=== PATIENT | male | born 1970 | race Caucasian/White ===

== ENCOUNTER 2017-10-11 11:38 | Inpatient (IN) | payer MEDICARE, MEDICAID ==
[2017-10-11] MEDS ORDERED: Naloxone HCl 0.4 mg/ml Vial ONE (11:50)
[2017-10-11 12:01] LABS: Oxyhemoglobin 94.7 % (94.0-97.0); Sodium 135 mmol/L (135-148)
[2017-10-11 12:02] LABS: Mode NRM ON TRACH; Modified Allen's Test POSITIVE; Vent NO
[2017-10-11 12:17] LABS: Amphetamine Not Detected (NotDetected); Methadone Not Detected (NotDetected); Methamphetamine Not Detected (NotDetected)
[2017-10-11 12:19] LABS: Bilirubin Moderate (Negative); Blood, Urine Large (Negative); Glucose, Urine (Dipstick) 250 mg/dL (Negative); Ketone, Urine Trace mg/dL (Negative); Nitrite Negative (Negative); Protein, Urine (Dipstick) 300 mg/dL (Neg-Trace)
[2017-10-11 12:22] LABS: Bacteria/HPF 4+ HPF (None Seen)
[2017-10-11 12:36] LABS: Hyaline Casts/LPF 0-3 HYALINE CAST LPF (0-3 Hyaline); Sperm/HPF 2+ HPF (None Seen); Yeast-All Forms None Seen HPF (None Seen)
[2017-10-11 12:49] LABS: #Eosinphils 0.2 thou/uL (0.0-0.7); #Lymphocytes 2.4 thou/uL (1.20-3.40); #Monocytes 1.7 thou/uL (0.11-0.59); #Neutrophils 11.8 thou/uL (1.40-6.50); %Basophils 0.2 % (0.0-1.0); %Eosinophils 1.2 % (0.0-10.0); %Lymphocytes 15.1 % (21.0-51.0); %Monocytes 10.7 % (0.0-10.0); Mean Platelet Volume 7.5 fL (7.4-10.4); Red Blood Cell (RBC) Count 3.24 mill/uL (4.70-6.10); White Blood Cell (WBC) Count 16.2 thou/uL (4.8-10.8)
[2017-10-11 12:55] LABS: Prothrombin Time 15.6 SEC (12.0-14.7)
[2017-10-11 12:56] LABS: PTT 38.1 SEC (22.9-36.1)
[2017-10-11 13:02] LABS: Lactic Acid - Sepsis 1.2 mmol/L (0.5-2.2)
[2017-10-11 13:05] LABS: Acetaminophen Less than 6.0 mcg/mL (10.0-30.0); Salicylate Less than 8.0 mg/dL (15.0-30.0)
[2017-10-11 13:06] LABS: ALT (SGPT) 10 U/L (8-55); AST (SGOT) 11 U/L (5-34); Alkaline Phosphatase 75 U/L (40-150); Anion Gap 13 mmol/L (10-20); BUN (Urea Nitrogen) 23 mg/dL (8.9-20.6); Bilirubin, Total 0.5 mg/dL (0.2-1.2); Calc. Creatinine Clearance 0 mL/min (70-130); Calcium 8.5 mg/dL (7.8-10.44); Carbon Dioxide 21 mmol/L (22-29); Chloride 102 mmol/L (98-107); Estimated GFR-MDRD 57; Globulin 3.9 g/dL (2.4-3.5); Magnesium 1.3 mg/dL (1.6-2.6); Protein, Total 7.3 g/dL (6.0-8.3)
[2017-10-11 13:08] LABS: Troponin I Less than 0.010 ng/mL (< 0.028)
[2017-10-11] MEDS ORDERED: Piperacillin/Tazobactam 4.5 GM in Sodium Chloride 0.9% 100 ML IVPB ONE (13:15)
[2017-10-11] MEDS ORDERED: ISOVUE-370 76%-LOCM 1 ML ONE (14:07)
--- NOTE | 2017-10-11 14:32 | CT ---
CT BRAIN: Date: 10/11/17 PROVIDED CLINICAL HISTORY: Altered mental status. FINDINGS: Comparison made with study dated 06/28/17. The ventricular system appears unchanged in size and morphology. Chronic microvascular ischemic solano es are redemonstrated, appearing similar to the prior study. There is no evidence for intracranial he morrhage or mass effect. The extracranial soft tissues and osseous structures demonstrate no acute fi ndings. IMPRESSION: No evidence for intracranial hemorrhage or mass effect. POS: [facility]
--- NOTE | 2017-10-11 14:46 | RAD ---
PORTABLE CHEST: Date: 10/11/17 PROVIDED CLINICAL HISTORY: Hypotension. FINDINGS: Comparison is made with the study dated 08/06/17. The lungs are hypoinflated, limiting evaluation, as does patient body habitus. There is persistent el evation of the right hemidiaphragm. Tracheostomy appliance is again noted in place. The heart remains enlarged. There is no pneumothorax evident. IMPRESSION: Limited exam. POS: [facility]
--- NOTE | 2017-10-11 15:43 | CT ---
CT ANGIO OF CHEST PERFORMED WITH IV CONTRAST ENHANCEMENT WITH 3D RECONSTRUCTIONS: Date: 10/11/17 HISTORY: Shortness of breath. Elevated D-Dimer. FINDINGS: There are atelectatic changes in the lung bases, greater in the right base. There is elevation of the right hemidiaphragm. Thoracic aorta is normal in caliber. No significant mediastinal adenopathy is seen, although there ar e some slightly prominent subcarinal nodes that are nonspecific. There is fair pulmonary artery opacification. Small peripheral emboli cannot be excluded on the basis of this exam, but no embolus is seen. Visualized liver parenchyma shows no focal findings. IMPRESSION: 1. No CT evidence for pulmonary embolus. 2. Bibasilar atelectatic changes, greater within the right base. POS: [facility]
[2017-10-11] MEDS ORDERED: Magnesium 2 GM/NS 0.9% 100 ML 2 GM in Premix Bag 1 BAG IVPB SCH (16:15)
[2017-10-11] MEDS ORDERED: Acetaminophen 325 MG TAB PO PRN (18:13)
[2017-10-11] MEDS ORDERED: Famotidine 20 MG TAB PO PRN (18:13)
[2017-10-11] MEDS: Sodium Chloride 0.9% 1,000 ML IV SCH (18:29)
--- NOTE | 2017-10-11 18:50 | HP ---
HISTORY OF PRESENT ILLNESS: Mr. Stinson is a 47-year-old black man. He is currently a detention r [facility]. He was brought to the ER earlier today because of unresponsiveness, which started early tod ay. He was evaluated and was felt to be septic. He is being admitted for management. The patient cannot give any information at this time. There is no family member. History is obtaine d from his medical record and also his detention chart. He is quadriplegic and he is known to hav e any history of obstructive nephropathy. PAST MEDICAL HISTORY: Hypertension, diabetes mellitus, dyslipidemia. PAST SURGICAL HISTORY: Remarkable for tracheostomy. He does not have any known allergy. SOCIAL HISTORY: Cannot be obtained. MEDICATIONS: At home, he was on same aspirin 81 mg daily, baclofen, Dulcolax, gabapentin, metformin, magnesium oxide. REVIEW OF SYSTEMS: Cannot be obtained in view of the patient's mentation and there is no family memb er available. PHYSICAL EXAMINATION: GENERAL: At the current time, he is responsive only to pain. VITAL SIGNS: Latest vital signs show blood pressure of 97/66, pulse rate of 77, respiratory rate of 14, temperature of 100.5. HEENT: Normocephalic and atraumatic. Both his pupils are equal, reactive. Ears and nose normal. T he oral mucosa shows some debris. NECK: Supple. He is status post tracheostomy. There is no distention of the jugular vein. No lymp hadenopathy felt. CHEST: Symmetrical with regular S1, S2. LUNGS: Show some rhonchi. ABDOMEN: Soft. He has a suprapubic catheter in place. We could not appreciate any organomegaly. LIMBS: All extremities are atrophic and he has no edema. NEUROLOGIC: He is quadriplegic as mentioned earlier. LABORATORY DATA: His CBC showed WBC of 16.2, hemoglobin of 9, hematocrit of 28, MCV of 86.5, platele t of 220. PT is 15.6, PTT 38.1. D-dimer was noticed to be elevated at 0.86. CT angiogram is normal . ABG shows a pH of 7.32, pCO2 of 45.8, pO2 of 95.7, O2 sat of 97.2, base excess of -3.2. Chemistry and electrolytes show sodium of 131, potassium of 5, chloride 102, CO2 21, BUN 23, creatinine 1.35, glucose 315, lactic acid 1.2, calcium 8.5, magnesium 1.3, total bilirubin 0.5, AST 11, ALT 10, alkali ne phosphatase 75. Urinalysis was reviewed, possible urinary tract infection; however, we have to me ntion that the patient has a suprapubic catheter in place chronically. Toxicology screen was reviewe d. Chest x-ray reviewed by us is suggestive of bilateral infiltrate. Head CT was reported to show n o evidence of intracranial hemorrhage or mass effect. CT angiogram was reported to show no evidence of pulmonary embolism. There is bibasilar atelectatic changes, greater on the right side. ASSESSMENT AND PLAN: This is a 47-year-old black man, quadriplegic, with history of hypertension, di abetes mellitus who was brought to this facility because of decreased responsiveness. WBC was elevat ed, raising the possibility of sepsis. Patient is started on broad spectrum antibiotics. His magnes ium was noticed to be low magnesium will be supplemented. The patient will be admitted to medical IC U for further evaluation and management will depend on the course of his hospitalization and his resp onse to therapy.
[2017-10-11] MEDS ORDERED: Dextrose 5% in Water 1,000 ML IV PRN (19:40)
[2017-10-11] MEDS ORDERED: Insulin Regular 300 UNITS/3 ML VIAL SC PRN (19:40)
[2017-10-11] MEDS ORDERED: HumaLOG 300 UNITS/3 ML VIAL SC PRN (19:40)
[2017-10-11] MEDS ORDERED: Dextrose 50% Abboject 50 ML SYRINGE IVP PRN (19:40)
[2017-10-11] MEDS: Docusate 100 MG CAP PO SCH (21:40)
[2017-10-11] MEDS: Piperacillin/Tazobactam 3.375 GM in Sodium Chloride 0.9% 100 ML IVPB SCH (21:40)
[2017-10-11] MEDS: Atorvastatin Calcium 40 MG TAB PO SCH (21:40)
[2017-10-12] MEDS: Vancomycin HCl 1 GM in Premix Bag 1 BAG IVPB SCH ×2 (00:55→13:55)
[2017-10-12] MEDS: Piperacillin/Tazobactam 3.375 GM in Sodium Chloride 0.9% 100 ML IVPB SCH ×4 (02:30→20:35)
[2017-10-12 04:51] LABS: Anion Gap 13 mmol/L (10-20); BUN (Urea Nitrogen) 14 mg/dL (8.9-20.6); Calc. Creatinine Clearance 169 mL/min (70-130); Calcium 9.6 mg/dL (7.8-10.44); Carbon Dioxide 21 mmol/L (22-29); Chloride 106 mmol/L (98-107); Estimated GFR-MDRD Greater than 90
[2017-10-12] MEDS: Sodium Chloride 0.9% 1,000 ML IV SCH ×2 (05:46→14:31)
[2017-10-12 05:53] LABS: #Eosinphils 0.4 thou/uL (0.0-0.7); #Lymphocytes 1.2 thou/uL (1.20-3.40); #Monocytes 1.3 thou/uL (0.11-0.59); #Neutrophils 6.8 thou/uL (1.40-6.50); %Basophils 0.3 % (0.0-1.0); %Eosinophils 4.5 % (0.0-10.0); %Lymphocytes 12.5 % (21.0-51.0); %Monocytes 13.1 % (0.0-10.0); Hematocrit 34.4 % (42.0-52.0); Mean Platelet Volume 8.4 fL (7.4-10.4); Red Blood Cell (RBC) Count 4.01 mill/uL (4.70-6.10); White Blood Cell (WBC) Count 9.7 thou/uL (4.8-10.8)
--- NOTE | 2017-10-12 07:05 | CON ---
DATE OF CONSULTATION: 10/11/2017 HISTORY OF PRESENT ILLNESS: Kwan Stinson is a 47-year-old unfortunate gentleman who was admitted with acute mental status change. He is from the [facility], who has had a previous trauma tic cervical injury associated with quadriplegia in 2011. He was hypertensive additionally, but apparently, there was no fever or chills. They also did give h im some Tylenol. Unable to get any additional information from the previous medical records. PAST MEDICAL HISTORY: Pertinent for tracheostomy, quadriplegia, hypertension, diabetes, neurogenic b ladder, , hyperlipidemia, depression. PAST SURGICAL HISTORY: C2-C12 surgical correction, PEG, laminectomy, tracheostomy. MEDICATIONS FROM HOME: Includes recent sulfa, insulin, Levemir 20, amitriptyline 100, atenolol 50 tw ice a day, tizanidine 6, gabapentin 300, multiple vitamins. REVIEW OF SYSTEMS: Otherwise unremarkable. PHYSICAL EXAMINATION: GENERAL: He is awake, responsive. VITAL SIGNS: His blood pressure was slightly low at 90/58, sats 98%, temperature 98.7, respirations 18. CHEST: Reveals anterior rhonchi. CARDIAC: Normal S1 and S2. No gallops. ABDOMEN: Soft. No masses. LABORATORY DATA: White count 16, H&H 9 and 28, platelet count 220. His creatinine is 1.35, sodium 1 35, potassium is 5, glucose 315. Her urine shows too numerous to count rbc's and wbc's. PO2 of 95, pCO2 45, pH 7.32. X-ray was normal. CT chest is normal. IMPRESSION: 1. Acute mental status change, etiology unclear, possibly sepsis. 2. Suprapubic catheter in place. 3. Status post cord traumatic injury. PLAN: 1. He was started on Zosyn, vancomycin. Continue to deescalate once cultures are back, neb treatmen ts, supportive care, hydration. 2. IV fluids. 3. We will follow while in the MICU.
[2017-10-12] MEDS: Docusate 100 MG CAP PO SCH ×2 (08:30→20:36)
[2017-10-12] MEDS: Aspirin 81 mg Enteric Coated Tablet PO SCH (08:30)
[2017-10-12] MEDS: Enoxaparin Sodium 40 MG/0.4 ML SYRINGE SC SCH (08:32)
--- NOTE | 2017-10-12 11:04 | PDOC.PN ---
- Subjective Encounter Start Date: 10/12/17 Encounter Start Time: 10:45 Subjective: Expresses no complaint. - Objective Vital Signs & Weight: Vital Signs (12 hours) Temp Pulse Resp BP Pulse Ox 10/12/17 08:00 97.7 F 80 14 97 10/12/17 07:07 80 14 10/12/17 07:05 97.7 F 79 24 H 130/83 96 10/12/17 04:00 97.8 F 73 16 101/75 97 10/12/17 01:23 97 10/12/17 00:00 75 20 115/78 98 Weight Weight 239 lb 8 oz I&O: 10/11/17 10/12/17 10/13/17 06:59 06:59 06:59 Intake Total 1686 Output Total 3200 Balance -1514 Result Diagrams: 10/12/17 04:04 10/12/17 04:04 Additional Labs: Accuchecks 10/12/17 10/11/17 05:39 20:38 POC Glucose 192 H 253 H Radiology Reviewed by me: Yes Phys Exam - Physical Examination Constitutional: NAD (Alert, responsive.) HEENT: PERRLA Neck: no JVD Respiratory: clear to auscultation bilateral Cardiovascular: RRR Gastrointestinal: soft Musculoskeletal: no edema (Paraplegic..) Dx/Plan (1) Sepsis affecting skin Code(s): A41.9 - SEPSIS, UNSPECIFIED ORGANISM Status: Acute Plan: Continue antibiotics. F/u cultures. (2) UTI (urinary tract infection) Status: Acute Plan: aas above. (3) Acute kidney failure Status: Resolved Comment: resolving. (4) Hyperkalemia Code(s): E87.5 - HYPERKALEMIA Status: Resolved Comment: resolved. (5) Sepsis Code(s): A41.9 - SEPSIS, UNSPECIFIED ORGANISM Status: Resolved Qualifiers: Sepsis type: sepsis due to unspecified organism Qualified Code(s): A41.9 - Sepsis, unspecified organism (6) DM type 2 (diabetes mellitus, type 2) Status: Chronic Qualifiers: Diabetes mellitus complication status: with unspecified complications Diabetes mellitus shelter insulin use: with shelter use Qualified Code(s) : E11.8 - Type 2 diabetes mellitus with unspecified complications; Z79.4 - senior living (current) use of insulin Plan: BS has improved. Continue sliding scale. (7) Hypertension Code(s): I10 - ESSENTIAL (PRIMARY) HYPERTENSION Status: Chronic Comment: BP satisfactory. - Plan Continue current management. -: f/u BxC, urine culture. * .
[2017-10-12 12:53] LABS: Vancomycin, Trough 11.6 ug/mL
[2017-10-12] MEDS: Vancomycin HCl 1.5 GM in Sodium Chloride 0.9% 250 ML 300 ML IVPB SCH (14:30)
[2017-10-12] MEDS: Atorvastatin Calcium 40 MG TAB PO SCH (20:36)
[2017-10-13] MEDS: Piperacillin/Tazobactam 3.375 GM in Sodium Chloride 0.9% 100 ML IVPB SCH ×2 (01:42→09:10)
[2017-10-13] MEDS: Vancomycin HCl 1.5 GM in Sodium Chloride 0.9% 250 ML 300 ML IVPB SCH (02:41)
[2017-10-13 05:43] LABS: Anion Gap 15 mmol/L (10-20); BUN (Urea Nitrogen) 7 mg/dL (8.9-20.6); Calc. Creatinine Clearance 175 mL/min (70-130); Calcium 9.8 mg/dL (7.8-10.44); Carbon Dioxide 23 mmol/L (22-29); Chloride 100 mmol/L (98-107); Estimated GFR-MDRD Greater than 90
[2017-10-13] MEDS: Sodium Chloride 0.9% 1,000 ML IV SCH ×3 (08:49→20:33)
[2017-10-13] MEDS: Docusate 100 MG CAP PO SCH ×2 (08:50→20:34)
[2017-10-13] MEDS: Aspirin 81 mg Enteric Coated Tablet PO SCH (08:50)
[2017-10-13] MEDS: Enoxaparin Sodium 40 MG/0.4 ML SYRINGE SC SCH (08:50)
[2017-10-13] MEDS ORDERED: cefTRIAXone\\ROCEPHIN 1 GM in Sodium Chloride 0.9% 100 ML IVPB SCH (09:00)
--- NOTE | 2017-10-13 09:12 | PRG ---
DATE OF SERVICE: 10/13/2017 HISTORY: This morning he is awake, alert, responsive, in no distress, no longer hypertensive. PHYSICAL EXAMINATION: VITAL SIGNS: Blood pressure 147/92, O2 sats 100%, temperature 99, pulse 114. CHEST: Chest revealed decreased breath sounds without any wheezing. CARDIAC: Normal S1-S2. . ABDOMEN: Soft. No masses. LABORATORY: Electrolytes are normal. His urine is growing E. coli sensitive to the present antibiot ics. IMPRESSION: 1. Respiratory failure, status post trach. 2. Traumatic injury. 3. Urinary tract infection sepsis. PLAN: His hypertension, resolved. I would deescalate his antibiotics, transfer him out of the ICU, in fact, he can go home in the next 24-48 hours.
[2017-10-13] MEDS: cefTRIAXone\\ROCEPHIN 1 GM, Syringe 0.4 ML in Sterile Water 9.6 ML SLOW IVP SCH (09:47)
[2017-10-13 10:38] LABS: #Eosinphils 0.3 thou/uL (0.0-0.7); #Monocytes 0.9 thou/uL (0.11-0.59); #Neutrophils 6.1 thou/uL (1.40-6.50); %Basophils 0.5 % (0.0-1.0); %Eosinophils 3.7 % (0.0-10.0); %Lymphocytes 12.4 % (21.0-51.0); %Monocytes 10.9 % (0.0-10.0); Hematocrit 32.1 % (42.0-52.0); Mean Platelet Volume 7.3 fL (7.4-10.4); Red Blood Cell (RBC) Count 3.75 mill/uL (4.70-6.10); White Blood Cell (WBC) Count 8.4 thou/uL (4.8-10.8)
[2017-10-13 11:09] LABS: Anion Gap 13 mmol/L (10-20); BUN (Urea Nitrogen) 7 mg/dL (8.9-20.6); BUN/Creatinine Ratio 8.33; Calc. Creatinine Clearance 163 mL/min (70-130); Calcium 9.7 mg/dL (7.8-10.44); Carbon Dioxide 25 mmol/L (22-29); Chloride 101 mmol/L (98-107); Estimated GFR-MDRD Greater than 90; Magnesium 1.2 mg/dL (1.6-2.6); Phosphorus 2.7 mg/dL (2.3-4.7)
--- NOTE | 2017-10-13 12:45 | PQF ---
DATE: 10-13-17 ATTN: DR. PIETER RUTH Please exercise your independent, professional judgment in responding to the clarification form. Clinical indicators are provided on the bottom of this form for your review Please check appropriate box(s): [ ] Sepsis due to: (Pna, UTI) Due to: [ ] Suprapubic Catheter [ ] Sepsis due to Pna, UTI) Not due to Suprapubic Catheter [ ] Sepsis due to [ ] Severe sepsis with acute organ dysfunction of: (Examples: respiratory failure, encephalopathy, acute kidney failure, other) [ ] Other diagnosis [ ] Unable to determine In addition, please specify: Present on Admission (POA): [ ] Yes [ ] No [ ] Unable to determine For continuity of documentation, please document condition throughout progress notes and discharge summary. Thank You. CLINICAL INDICATORS - SIGNS / SYMPTOMS / LABS ER DX: AMS, PNEUMONIA, SEPSIS, UTI H&P: HE WAS BROUGHT TO THE ER EARLIER TODAY BECAUSE OF UNRESPONSIVENESS, HE HAS A SUPRAPUBIC CATHETER IN PLACE. WBC WAS ELEVATED, RAISING THE POSSIBILITY OF SEPSIS PN DR. EMMA GALLARDO 10-12-17: ACUTE SEPSIS, ACUTE UTI TEMP : ER: 100.5 RECTAL BP: ( ER) 96/61, 90/58, 92/59 PULSE: 10-12-17: 103, 10-13-17: 117 RR: 10-12-17: 24, 22, NONREBREATHER WBC: 16.2 RISK FACTORS: ER DX: AMS, PNEUMONIA, SEPSIS, UTI H&P: HX OF QUADRIPLEGIA, TRACHEOSTOMY TREATMENTS: (10-11-17: IVF (10-13-17): ROCEPHIN, (10-11-17) ZOSYN (This form is maintained as a part of the permanent medical record) 2014 [employer] All Rights Reserved VENKAT [email or web address] Office: [phone] [facility]
[2017-10-13 13:28] VITALS: BMI 31.3
[2017-10-13] MEDS ORDERED: Magnesium Sulfate 4 GM in Sodium Chloride 0.9% 250 ML 250 ML IVPB SCH (15:15)
[2017-10-13] MEDS ORDERED: hydrALAZINE 20 MG/ML VIAL SLOW IVP PRN (18:20)
[2017-10-13] MEDS: Atorvastatin Calcium 40 MG TAB PO SCH (20:34)
[2017-10-13] MEDS: Famotidine 20 MG TAB PO SCH (20:34)
--- NOTE | 2017-10-13 21:03 | PDOC.PN ---
- Subjective Encounter Start Date: 10/13/17 Encounter Start Time: 15:30 Patient seen and examined. No new complaints. No overnight events. Feeling beter. Some cough. No N/V - Objective MAR Reviewed: Yes Vital Signs & Weight: Vital Signs (12 hours) Temp Pulse Resp BP Pulse Ox 10/13/17 20:32 107 H 18 97 10/13/17 18:54 144/99 H 10/13/17 18:29 96 10/13/17 18:00 99.2 F 96 16 98 10/13/17 16:15 99.2 F 96 16 164/110 H 98 10/13/17 15:40 103 H 20 148/100 H 95 10/13/17 13:03 108 H 16 10/13/17 12:00 99.4 F 117 H 18 153/103 H 100 Weight Admit Weight 240 lb Weight 230 lb 12.8 oz I&O: 10/12/17 10/13/17 10/14/17 06:59 06:59 06:59 Intake Total 1686 1932 600 Output Total 3200 2100 1000 Balance -7238 -168 -400 Result Diagrams: 10/13/17 10:31 10/13/17 10:31 Additional Labs: Accuchecks 10/13/17 10/13/17 10:45 04:40 POC Glucose 271 H 170 H Radiology Reviewed by me: Yes (CTA - no PE, bibasilar infiltrates) Phys Exam - Physical Examination Constitutional: NAD Respiratory: no wheezing, no rhonchi Scat bibasilar rales, Symmetrical, trach + Cardiovascular: RRR, no significant murmur, no rub no heaves Gastrointestinal: soft, non-tender, no distention, positive bowel sounds Musculoskeletal: edema present (2 + b/l LE) Neuro - Quadriparesis Psychiatric: normal affect, A&O x 3 Dx/Plan - Plan DVT proph w/lovenox, DVT proph w/SCDs IMPRESSION: 1. Sepsis with acute organ dysfunction/Toxic Metabolic Encephalopathy due to Catheter associated UTI 2. Hypomagnesemia 3. HTN 4. DM2 5. Quadriplegia 6. s/p Tracheostomy 7. BRIAN - improving PLAN: * Replace Magnessium * Change IV fluid to KVO * Resume low dose Baclofen/ Gabapentin (will confirm doses with [facility]) * Resume low dose Atenolol and Levemir * AM labs * Pulmonary following * Cont supportive care * Add Probiotics * Add Mild insulin sliding scale Review of Systems - Review of Systems Respiratory: Cough, Dry. negative: Shortness of Breath, Hemoptysis, SOB with Excertion, Pleuritic Pain, Sputum, Wheezing Cardiovascular: negative: Chest Pain, Palpitations, Orthopnea, Paroxysmal Noc. Dyspnea, Edema, Light Headedness Gastrointestinal: negative: Nausea, Vomiting, Abdominal Pain, Diarrhea, Constipation, Melena, Hematochezia, Other - Medications/Allergies Allergies/Adverse Reactions: Allergies Allergy/AdvReac Type Severity Reaction Status Date / Time No Known Drug Allergies Allergy Verified 08/07/17 04:46 Medications: Current Medications Acetaminophen (Tylenol) 650 mg PO Q6H PRN PRN Reason: Pain Last Admin: 10/13/17 11:05 Dose: 650 mg Albuterol/Ipratropium (Duoneb) 3 ml NEB [id number] [facility] Last Admin: 10/13/17 20:32 Dose: 3 ml Aspirin (Ecotrin) 81 mg PO DAILY [facility] Last Admin: 10/13/17 08:50 Dose: 81 mg Atorvastatin Calcium (Lipitor) 40 mg PO HS [facility] Last Admin: 10/13/17 20:34 Dose: 40 mg Dextrose/Water (Dextrose 50%) 25 gm IVP PRN PRN PRN Reason: HYPOGLYCEMIA PROTOCOL Docusate Sodium (Colace) 100 mg PO BID [facility] Last Admin: 10/13/17 20:34 Dose: 100 mg Enoxaparin Sodium (Lovenox) 40 mg SC 0900 [facility] Last Admin: 10/13/17 08:50 Dose: 40 mg Famotidine (Pepcid) 20 mg PO BID [facility] Last Admin: 10/13/17 20:34 Dose: 20 mg Glucagon (Glucagon) 1 mg IM PRN PRN PRN Reason: HYPOGLYCEMIA PROTOCOL Hydralazine HCl (Apresoline) 10 mg SLOW IVP Q4H PRN PRN Reason: SBP > 180 Last Admin: 10/13/17 18:29 Dose: 10 mg Sodium Chloride (Normal Saline 0.9%) 1,000 mls @ 100 mls/hr IV .Q10H [facility] Last Admin: 10/13/17 20:33 Dose: 1,000 mls Dextrose/Water (D5w) 1,000 mls @ 0 mls/hr IV INF PRN; As Directed PRN Reason: HYPOGLYCEMIA PROTOCOL Ceftriaxone Sodium 1 gm/ (Syringe 0.4 ml/ Sterile Water) 10 mls @ 120 mls/hr SLOW IVP 0900 [facility] Last Admin: 10/13/17 09:47 Dose: 10 mls Sodium Chloride (Flush - Normal Saline) 10 ml IVF Q12HR [facility] Last Admin: 10/13/17 20:34 Dose: Not Given Sodium Chloride (Flush - Normal Saline) 10 ml IVF PRN PRN PRN Reason: Saline Flush
[2017-10-14] MEDS ORDERED: Sodium Chloride 0.9% 1,000 ML IV SCH (05:00)
[2017-10-14] MEDS ORDERED: Insulin Regular 300 UNITS/3 ML VIAL SC PRN ×2 (05:01)
[2017-10-14 05:40] LABS: Anion Gap 14 mmol/L (10-20); BUN (Urea Nitrogen) 5 mg/dL (8.9-20.6); Calc. Creatinine Clearance 187 mL/min (70-130); Calcium 9.8 mg/dL (7.8-10.44); Carbon Dioxide 23 mmol/L (22-29); Chloride 103 mmol/L (98-107); Estimated GFR-MDRD Greater than 90; Magnesium 1.9 mg/dL (1.6-2.6)
[2017-10-14] MEDS: Docusate 100 MG CAP PO SCH (07:36)
[2017-10-14] MEDS: Famotidine 20 MG TAB PO SCH (07:36)
[2017-10-14] MEDS: Aspirin 81 mg Enteric Coated Tablet PO SCH (07:37)
[2017-10-14] MEDS: Enoxaparin Sodium 40 MG/0.4 ML SYRINGE SC SCH (07:37)
[2017-10-14] MEDS: cefTRIAXone\\ROCEPHIN 1 GM, Syringe 0.4 ML in Sterile Water 9.6 ML SLOW IVP SCH (07:37)
[2017-10-14] MEDS ORDERED: Insulin Detemir 100 UNITS/ML 10 UNITS in Pre-Filled Syringe 1 EACH SC SCH (09:00)
[2017-10-14] MEDS ORDERED: Polyethylene Glycol 3350 17 GM Packet PO SCH (09:00)
[2017-10-14] MEDS ORDERED: Gabapentin 100 MG CAP PO SCH (09:00)
[2017-10-14] MEDS ORDERED: Atenolol 25 MG TAB PO SCH (09:00)
[2017-10-14] MEDS ORDERED: Baclofen 10 MG TAB PO SCH (09:00)
--- NOTE | 2017-10-14 09:53 | PRG ---
DATE OF SERVICE: 10/14/2017 Kwan Stinson this morning he is better, awake, alert, responsive, no longer hypotensive. PHYSICAL EXAMINATION: VITAL SIGNS: Blood pressure 180/124, temperature 97, respiratory rate 20, O2 sat 96%. CHEST: Chest revealed decreased breath sounds, no wheezing. CARDIAC: Normal S1, S2. LABORATORY DATA: White count 8000, H&H 10 and 30, platelet count is normal. Electrolytes are normal. IMPRESSION: 1. Recurrent urinary tract infection, Escherichia coli sensitive to antibiotics. 2. No longer hypotensive. PLAN: He can be discharged home on antibiotics for 10 days. We will follow at a distance.
[2017-10-14] MEDS ORDERED: Saccharomyces boulardii 250 MG CAP PO SCH (12:00)
[2017-10-14 12:20] VITALS: BP 162/105; TEMP 98.1
--- NOTE | 2017-10-14 16:10 | DIS ---
DATE OF ADMISSION: 10/11/2017 DATE OF DISCHARGE: 10/14/2017 PRIMARY CARE PHYSICIAN: Dex Nunez M.D. DISCHARGE DISPOSITION: assisted home. PRIMARY DISCHARGE DIAGNOSES: 1. Sepsis secondary to suprapubic Ingram catheter. 2. Urinary tract infection due to indwelling suprapubic catheter. 3. Acute encephalopathy. 4. Sepsis with acute organ dysfunction. SECONDARY DISCHARGE DIAGNOSES: Tracheostomy status, suprapubic catheter status, neurogenic bladder, obesity with BMI 31, hypertension, dyslipidemia, diabetes type 2, decubitus ulcer, complete quadriple cristiano, chronic constipation, chronic anemia, anxiety and depression. PRIMARY PROCEDURE/OPERATION: None. RADIOLOGICAL INVESTIGATION: Chest x-ray was normal. CT brain unremarkable. CT angiography, no evid ence of PE, bibasilar atelectasis. SIGNIFICANT LABORATORY DATA: WBC 8.4, hemoglobin 10.3, platelets 240. INR 1.2, D-dimer 0.86, sodium 136, potassium 3.7, BUN 5, creatinine 0.73, calcium 9.8, magnesium 1.9. Urinalysis suggestive of UT I. Urine drug screen positive for tricyclics. Serum drug screen negative. Blood culture negative. Urine culture grew E. coli. DISCHARGE MEDICATIONS: New medications, Macrobid 100 mg p.o. twice daily for 10 more days, Florastor 250 mg p.o. daily for 10 days. The patient will continue following medications: Tylenol 650 mg p.o . q.6 hourly p.r.n., Tylenol #3 one tablet q.8 hourly p.r.n., amitriptyline 100 mg p.o. at bedtime, a spirin 81 mg p.o. daily, atenolol 50 mg p.o. b.i.d., baclofen 30 mg p.o. q.6 hourly p.r.n., UTI-Stat liquid p.o. daily, Colace 100 mg p.o. b.i.d., Pepcid 20 mg p.o. at bedtime, gabapentin 300 mg p.o. q. 6 hourly, Humulin R insulin as per sliding scale, Levemir 20 units subcu at bedtime, magnesium 400 mg p.o. daily, metformin 1000 mg p.o. b.i.d., multivitamin 1 capsule p.o. daily, MiraLax 17 grams p.o. daily, Senokot 1 tablet p.o. daily, Zanaflex 6 mg q.8 hourly p.r.n. CONTRAINDICATIONS: None. CODE STATUS: FULL CODE. INPATIENT HERB COUNSELOR: Dr. Acevedo was following while in hospital. TEST RESULTS PENDING ON DISCHARGE: None. ALLERGIES: No known drug allergies. DISCHARGE PLAN: Post hospital, the patient is discharged back to his [facility]. Subsequently, yashira champion will follow up with Dr. Nunez as instructed. HOSPITAL COURSE: A 47-year-old male who has complete quadriplegia. He has suprapubic catheter and t racheostomy status. He lives [facility]. He has suprapubic catheter and from [facility], he was sent to the ER for encephalopathy. Patient was found septic in the emergency room, he is a sour e of infection, was urinary tract that was related with chronic indwelling Ingram catheter. He had el evated D-dimer that is why CT angio was done which was negative for PE. CT brain was unremarkable. Chest x-ray was unremarkable. Initially, the patient was admitted in IM. Subsequently, patient wa s transferred to medical floor. As patient stayed in [facility], Dr. Acevedo saw this patient. His blood cul ture is negative and urine culture is positive for E. coli today. Based on these culture results, we decided to change to oral antibiotic therapy with Macrobid. While in hospital, he is hemodynamicall y stable. We resumed home medication upon discharge. PHYSICAL EXAMINATION: GENERAL: The patient is seen and examined at bedside today. VITAL SIGNS: Currently, temperature 98.1, pulse 97, respiratory rate 20, saturation 96%, blood press ure 165/113. Weight 230 pounds. GENERAL: The patient is currently alert, awake, and follows commands. HEAD: Normocephalic, atraumatic. EYES: Pupils round, reactive to light. ENT: Oropharynx within normal limits. Moist mucous membranes. NECK: Supple. Tracheostomy in place. LUNGS: Clear to auscultation without any rhonchi or rales. CARDIAC: S1, S2 regular, slight tachycardia, no murmur, no gallop, no rub. ABDOMEN: Suprapubic catheter in place, no peritoneal sign. No guarding, no rigidity. MUSCULOSKELETAL: Lower extremity, no edema. NEUROLOGIC: The patient has quadriplegia. Review of systems reviewed with him and negative. Today paperwork for discharge done. Discharge medication reconciliation done. Total time spent on discharge day 35 minutes.
--- NOTE | 2017-11-04 12:58 | EKG ---
Test Reason : Blood Pressure : / mmHG Vent. Rate : 088 BPM Atrial Rate : 088 BPM P-R Int : 228 ms QRS Dur : 106 ms QT Int : 354 ms P-R-T Axes : 034 -34 030 degrees QTc Int : 428 ms Sinus rhythm with 1st degree A-V block Left axis deviation Incomplete left bundle branch block Moderate voltage criteria for LVH, may be normal variant Abnormal ECG Confirmed by GILBERTO AVENDANO ([id number]), editor newspaper HARVINDER COX ([id number]) on 11/04/2017 12:58:28 PM Referred By: Confirmed By:GILBERTO AVENDANO
== END 2017-10-14 13:41 | DRG 698 ==
LOC: ERS 11:38 → IMCU/EMU 16:50 → T4-B 10-13 16:07
PROVIDERS: ADMIT Hospitalist; ATTEND Hospitalist
DX: T83.511A Infection and inflammatory reaction due to indwelling urethral catheter, initial encounter (principal); A41.51 Sepsis due to Escherichia coli [E. coli]; J96.90 Respiratory failure, unspecified, unspecified whether with hypoxia or hypercapnia; G82.50 Quadriplegia, unspecified; G92 Toxic encephalopathy; Z93.0 Tracheostomy status; N17.9 Acute kidney failure, unspecified; I95.9 Hypotension, unspecified; E87.5 Hyperkalemia; R65.20 Severe sepsis without septic shock; E11.9 Type 2 diabetes mellitus without complications; N39.0 Urinary tract infection, site not specified; I10 Essential (primary) hypertension; B96.20 Unspecified Escherichia coli [E. coli] as the cause of diseases classified elsewhere; N31.9 Neuromuscular dysfunction of bladder, unspecified; E66.9 Obesity, unspecified; Z68.31 Body mass index [BMI] 31.0-31.9, adult; E78.5 Hyperlipidemia, unspecified; L89.90 Pressure ulcer of unspecified site, unspecified stage; K59.09 Other constipation; D64.9 Anemia, unspecified; F41.9 Anxiety disorder, unspecified; F32.9 Major depressive disorder, single episode, unspecified; E83.42 Hypomagnesemia
CPT/HCPCS: 36415; 36416; 70450; 71010; 71275; 80048; 80053; 80202; 80306; 80307; 81003; 81015; 82140; 82553; 82805; 83605; 83735; 84443; 84484; 85025; 85379; 85610; 85730; 86850; 86900; 86901; 87040; 87077; 87086; 87186; 93005; 94640; 96361; 96365; 96375; A4216; J0360; J0696; J1650; J1815; J2310; J2543; J3370; J3475; J7050; J7620

== ENCOUNTER 2017-12-14 09:40 | Inpatient (IN) | payer MEDICARE, OTHER ==
--- NOTE | 2017-12-14 10:29 | RAD ---
SINGLE VIEW OF THE CHEST: COMPARISON: 10/11/17. HISTORY: Fever and altered mental status. FINDINGS: A single view of the chest shows a normal-size cardiomediastinal silhouette. The heart is accentuate d by low lung volumes. The tracheostomy is unchanged in position. There is no evidence of consolida tion, mass, or pleural effusion. IMPRESSION: No evidence of acute cardiopulmonary disease. POS: [facility]
[2017-12-14 10:30] LABS: ALT (SGPT) 13 U/L (8-55); AST (SGOT) 10 U/L (5-34); Albumin 3.7 g/dL (3.5-5.0); Alkaline Phosphatase 70 U/L (40-150); Anion Gap 14 mmol/L (10-20); BUN (Urea Nitrogen) 29 mg/dL (8.9-20.6); Bilirubin, Total 0.5 mg/dL (0.2-1.2); Calc. Creatinine Clearance 0 mL/min (70-130); Calcium 9.3 mg/dL (7.8-10.44); Carbon Dioxide 20 mmol/L (22-29); Chloride 104 mmol/L (98-107); Estimated GFR-MDRD 47; Glucose 199 mg/dL (70-105); Potassium 5.6 mmol/L (3.5-5.1); Protein, Total 7.7 g/dL (6.0-8.3); Sodium 132 mmol/L (136-145)
[2017-12-14] MEDS ORDERED: Meropenem 1 GM in Sterile Water 20 ML SLOW IVP SCH (10:30)
[2017-12-14 10:49] LABS: Bacteria/HPF 4+ HPF (None Seen)
[2017-12-14] MEDS ORDERED: Acetaminophen 325 MG Suppository ONE (10:50)
[2017-12-14] MEDS ORDERED: Acetaminophen 650 MG Suppository ONE (10:50)
[2017-12-14 10:55] LABS: Bilirubin Small (Negative); Blood, Urine Large (Negative); Clarity TURBID (Clear); Glucose, Urine (Dipstick) Negative (Negative); Leukocyte Large (Negative); Nitrite Negative (Negative); Protein, Urine (Dipstick) 100 mg/dL (Neg-Trace); Specific Gravity, Urine 1.026 (1.002-1.036)
[2017-12-14 10:57] LABS: Hemoglobin 9.2 g/dL (14.0-18.0); Mean Corpuscular HGB CONC 31.1 g/dL (32.0-36.0); Mean Corpuscular Hemoglobin 26.6 pg (27.0-31.0); Mean Corpuscular Volume 85.6 fl (80.0-94.0); Mean Platelet Volume 7.5 fL (7.4-10.4); Platelet Count 267 thou/uL (130-400); RBC Distribution Width 13.5 % (11.5-14.5); Red Blood Cell (RBC) Count 3.43 mill/uL (4.70-6.10); White Blood Cell (WBC) Count 16.5 thou/uL (4.8-10.8)
[2017-12-14 10:57] LABS: Pathc Cast-AUWi Flag 5.17 (0-2.49); Yeast-AUWi Flag 216.5 (0-25.0)
[2017-12-14 10:58] LABS: Band 10 % (5-11); Lymphocytes 10 % (21-51); MDiff Complete? YES; Monocytes 6 % (0-10); Neutrophil 74 % (42-75)
[2017-12-14] MEDS ORDERED: Ondansetron ODT 4 MG TAB PO PRN (10:59)
[2017-12-14] MEDS ORDERED: Ondansetron HCl/PF 4 MG/2 ML Vial IVP PRN (10:59)
[2017-12-14] MEDS ORDERED: Sodium Chloride 0.9% 1,000 ML IV SCH (11:00)
[2017-12-14 11:03] LABS: Hyaline Casts/LPF 0-3 HYALINE CAST LPF (0-3 Hyaline); Other Casts/LPF None Seen LPF (0-3 Hyaline)
[2017-12-14 11:04] LABS: Yeast-All Forms None Seen HPF (None Seen)
[2017-12-14] MEDS: Cefepime 2 GM, Syringe 2.5 ML in Sterile Water 10 ML SLOW IVP SCH (12:58)
[2017-12-14] MEDS: Sodium Chloride 0.9% 1,000 ML IV SCH ×2 (12:58→19:58)
[2017-12-14] MEDS ORDERED: Hydrocortisone Sod Succ/PF 100 mg/2 ml Vial ONE (12:59)
[2017-12-14] MEDS: Hydrocortisone Sod Succ/PF 100 mg/2 ml Vial IVP SCH ×2 (14:52→21:01)
--- NOTE | 2017-12-14 20:22 | HP ---
CHIEF COMPLAINT: Mental status change. HISTORY OF PRESENT ILLNESS: This is a 47-year-old quadriplegic [facility] resident who was brought in and I could not get any history from him, as patient is nonresponsive to verbal and tactile stimu li. In any case, according to report, patient was brought in this way and investigation revealed jhoana dence of sepsis secondary to urinary tract infection. Patient has been given some liters of IV fluid for resuscitation, as patient was noted to be tachycardic and hypotensive on presentation. As a res ult of this, decision has now been taken to admit this patient to the floor for further management. Patient does have suprapubic catheter. PAST MEDICAL HISTORY: Significant for hypertension, diabetes, dyslipidemia, status post tracheostomy , and functional quadriplegia. SOCIAL HISTORY: senior living resident. MEDICATIONS: Reviewed as documented on [facility]. REVIEW OF SYSTEMS: Could not be obtained from this patient. LABORATORY: Significant for white count of 16,500, hemoglobin 9.2. Sodium 132, potassium 5.6 with b icarbonate of 20, BUN of 29, and creatinine 1.58. PHYSICAL EXAMINATION: GENERAL: Patient was noted to be tachycardic and noted to be hypotensive in the ER, but seems to be improving. HEENT: Unremarkable except tracheostomy tube in place. CARDIOVASCULAR SYSTEM: First and second heart sounds were heard. RESPIRATORY SYSTEM: Revealed clear to auscultation bilaterally. DIGESTIVE SYSTEM: Revealed a benign abdomen. EXTREMITIES: Showed evidence of long-term paralysis. IMPRESSION: 1. Sepsis likely in the context of problem #2. 2. Urinary tract infection, recurrent in the context of suprapubic catheterization. 3. Acute on chronic kidney disease. 4. Hyperkalemia. 5. Metabolic acidosis. 6. Functional quadriplegia. PLAN: 1. Patient to be directly admitted to IMCU. 2. Broad-spectrum antibiotics. 3. Gentle rehydration. 4. Blood cultures and urine cultures with which we can narrow down the stress of antibiotics based o n sensitivity. 5. Further management to be dependent on the clinical course.
[2017-12-14 20:51] VITALS: BMI 30.8
[2017-12-14] MEDS ORDERED: Vancomycin HCl 1 GM in Sodium Chloride 0.9% 250 ML 250 ML IVPB SCH (21:00)
[2017-12-14] MEDS ORDERED: Cefepime 2 GM in Sodium Chloride 0.9% 100 ML IVPB SCH (21:00)
[2017-12-14] MEDS: Vancomycin HCl 1.5 GM in Sodium Chloride 0.9% 250 ML 300 ML IVPB SCH (22:38)
[2017-12-15] MEDS: Cefepime 2 GM, Syringe 2.5 ML in Sterile Water 10 ML SLOW IVP SCH ×2 (01:37→15:05)
[2017-12-15 04:22] LABS: #Lymphocytes 1.6 thou/uL (1.20-3.40); #Monocytes 1.7 thou/uL (0.11-0.59); #Neutrophils 13.5 thou/uL (1.40-6.50); %Basophils 0.1 % (0.0-1.0); %Eosinophils 0.2 % (0.0-10.0); %Lymphocytes 9.3 % (21.0-51.0); %Neutrophils 80.5 % (42.0-75.0); Hemoglobin 9.6 g/dL (14.0-18.0); Mean Corpuscular HGB CONC 31.9 g/dL (32.0-36.0); Mean Corpuscular Volume 87.8 fl (80.0-94.0); Mean Platelet Volume 7.3 fL (7.4-10.4); Platelet Count 246 thou/uL (130-400); RBC Distribution Width 13.5 % (11.5-14.5); Red Blood Cell (RBC) Count 3.44 mill/uL (4.70-6.10); White Blood Cell (WBC) Count 16.8 thou/uL (4.8-10.8)
[2017-12-15 04:47] LABS: Anion Gap 13 mmol/L (10-20); BUN (Urea Nitrogen) 19 mg/dL (8.9-20.6); Calc. Creatinine Clearance 151 mL/min (70-130); Calcium 9.4 mg/dL (7.8-10.44); Carbon Dioxide 20 mmol/L (22-29); Chloride 109 mmol/L (98-107); Estimated GFR-MDRD Greater than 90; Glucose 169 mg/dL (70-105); Potassium 4.4 mmol/L (3.5-5.1); Sodium 138 mmol/L (136-145)
[2017-12-15] MEDS: Sodium Chloride 0.9% 1,000 ML IV SCH ×3 (04:47→21:30)
[2017-12-15] MEDS: Hydrocortisone Sod Succ/PF 100 mg/2 ml Vial IVP SCH (04:48)
[2017-12-15] MEDS ORDERED: Temazepam 15 MG CAP PO PRN (07:12)
[2017-12-15] MEDS ORDERED: Eucerin (Mineral Oil/Petrolatum,White) 30 gm Jar TOP PRN (07:12)
[2017-12-15] MEDS ORDERED: HYDROcodone/Acetaminophen 5/325 mg Tablet PO PRN (07:12)
[2017-12-15] MEDS ORDERED: Mag-Al 1200 mg/1200 mg/30 ML UDCUP PO PRN (07:12)
[2017-12-15] MEDS ORDERED: Loperamide HCl 2 MG CAP PO PRN (07:12)
[2017-12-15] MEDS ORDERED: Milk Of Magnesia 30 ML UDCUP PO PRN (07:12)
[2017-12-15] MEDS ORDERED: Loratadine 10 MG TAB PO PRN (07:12)
[2017-12-15] MEDS ORDERED: Diabetic Tussin 200 MG/10 ML UDCUP PO PRN (07:12)
[2017-12-15] MEDS ORDERED: hydrALAZINE 20 MG/ML VIAL SLOW IVP PRN (07:12)
[2017-12-15] MEDS ORDERED: Sodium Chloride 0.65% Nasal 44 ML BOT EA NARE PRN (07:12)
[2017-12-15] MEDS ORDERED: Chloraseptic Spray 180 ml Bottle PO PRN (07:12)
[2017-12-15] MEDS ORDERED: Senokot 8.6 MG TAB PO PRN (07:12)
[2017-12-15] MEDS ORDERED: Artificial Tears 18 DROP/0.9 ML EA EYE PRN (07:12)
[2017-12-15] MEDS ORDERED: HumaLOG 300 UNITS/3 ML VIAL SC PRN ×2 (07:13)
[2017-12-15] MEDS ORDERED: Dextrose 5% in Water 1,000 ML IV PRN (07:13)
[2017-12-15] MEDS ORDERED: Dextrose 50% Abboject 50 ML SYRINGE SLOW IVP PRN (07:13)
[2017-12-15] MEDS ORDERED: Gabapentin 300 MG CAP PO SCH (08:00)
[2017-12-15] MEDS ORDERED: FLU VACC QS2017-18 36 mo. & older 0.5 ML SYRINGE IM ONE (09:00)
[2017-12-15] MEDS: Baclofen 10 MG TAB PO SCH ×3 (09:01→21:00)
[2017-12-15] MEDS: Polyethylene Glycol 3350 17 GM Packet PO SCH (09:01)
[2017-12-15] MEDS: Multivit, Therapeutic 1 TAB PO SCH (09:02)
[2017-12-15] MEDS: metFORMIN 500 MG TAB PO SCH ×2 (09:02→17:25)
[2017-12-15] MEDS: Saccharomyces boulardii 250 MG CAP PO SCH (09:02)
[2017-12-15] MEDS: Aspirin 81 mg Enteric Coated Tablet PO SCH (09:02)
[2017-12-15] MEDS: Famotidine 20 MG TAB PO SCH ×2 (09:02→22:06)
[2017-12-15] MEDS: Docusate 100 MG CAP PO SCH ×2 (09:03→22:06)
[2017-12-15] MEDS: Enoxaparin Sodium 30 MG/0.3 ML SYRINGE SC SCH (09:03)
[2017-12-15] MEDS: Vancomycin HCl 1.5 GM in Sodium Chloride 0.9% 250 ML 300 ML IVPB SCH ×2 (10:17→22:12)
--- NOTE | 2017-12-15 12:24 | PDOC.PN ---
- Subjective Encounter Start Date: 12/15/17 Encounter Start Time: 08:50 -: old records requested/rev Patient seen and examined. No new complaints. No overnight events - Objective MAR Reviewed: Yes Vital Signs & Weight: Vital Signs (12 hours) Temp Pulse Resp BP Pulse Ox 12/15/17 11:00 99.0 F 106 H 18 138/93 H 100 12/15/17 08:00 99.9 F H 112 H 19 99 12/15/17 07:30 99.9 F H 112 H 19 145/97 H 99 12/15/17 04:28 99.2 F 107 H 18 104/62 100 12/15/17 04:00 99 Weight Weight 227 lb 1.6 oz I&O: 12/14/17 12/15/17 12/16/17 06:59 06:59 06:59 Intake Total 1500 Output Total 1700 Balance -200 Result Diagrams: 12/15/17 03:59 12/15/17 03:59 Additional Labs: Accuchecks 12/15/17 12/15/17 11:40 06:25 POC Glucose 151 H 159 H EKG Reviewed by me: Yes (nsr) Phys Exam - Physical Examination Constitutional: NAD HEENT: PERRLA, moist MMs, sclera anicteric Neck: no JVD, supple trach+ Respiratory: no wheezing, no rales, no rhonchi Cardiovascular: RRR, no significant murmur, no rub Gastrointestinal: soft, non-tender, no distention, positive bowel sounds suprapubic catheter Musculoskeletal: no edema, pulses present quadriplegia Lymphatic: no nodes Psychiatric: normal affect Skin: no rash, normal turgor Dx/Plan (1) Acute kidney failure Status: Acute (2) Encephalopathy acute Code(s): G93.40 - ENCEPHALOPATHY, UNSPECIFIED Status: Resolved (3) Hyperkalemia Code(s): E87.5 - HYPERKALEMIA Status: Resolved (4) Sepsis with acute organ dysfunction Code(s): A41.9 - SEPSIS, UNSPECIFIED ORGANISM; R65.20 - SEVERE SEPSIS WITHOUT SEPTIC SHOCK Status: Acute (5) UTI (urinary tract infection) due to urinary indwelling Ingram catheter Code(s): T83.511A - I/I REACT D/T INDWELLING URETHRAL CATHETER, INIT; N39.0 - URINARY TRACT INFECTION, SITE NOT SPECIFIED Status: Acute Qualifiers: Indwelling urinary catheter type: cystostomy catheter (6) Anxiety and depression Code(s): F41.9 - ANXIETY DISORDER, UNSPECIFIED; F32.9 - MAJOR DEPRESSIVE DISORDER, SINGLE EPISODE, UNSPECIFIED Status: Chronic (7) Chronic anemia Code(s): D64.9 - ANEMIA, UNSPECIFIED Status: Chronic Comment: chronic, stable (8) Chronic complete quadriplegia Code(s): G82.50 - QUADRIPLEGIA, UNSPECIFIED Status: Chronic (9) Constipation Code(s): K59.00 - CONSTIPATION, UNSPECIFIED Status: Chronic (10) DM type 2 (diabetes mellitus, type 2) Status: Chronic Qualifiers: (11) Decubitus ulcer of buttock, stage 2 Code(s): L89.302 - PRESSURE ULCER OF UNSPECIFIED BUTTOCK, STAGE 2 Status: Chronic Qualifiers: (12) Dyslipidemia Code(s): E78.5 - HYPERLIPIDEMIA, UNSPECIFIED Status: Chronic (13) Hypertension Code(s): I10 - ESSENTIAL (PRIMARY) HYPERTENSION Status: Chronic Comment: BP satisfactory. (14) Neurogenic bladder Code(s): N31.9 - NEUROMUSCULAR DYSFUNCTION OF BLADDER, UNSPECIFIED Status: Chronic Comment: (15) Obesity (BMI 30.0-34.9) Code(s): E66.9 - OBESITY, UNSPECIFIED Status: Chronic (16) Status post tracheostomy Code(s): Z93.0 - TRACHEOSTOMY STATUS Status: Chronic - Plan cont current plan of care, continue antibiotics * continue cefepime and vancomycin * follow culture * Continue IVF * DC hydrocortisone * Transfer to medical floor * medication reviewed as below * symptomatic treatment * start selected home meds. Review of Systems - Review of Systems Constitutional: negative: fever, chills, sweats, weakness, malaise, other ENT: negative: Ear Pain, Ear Discharge, Nose Pain, Nose Discharge, Nose Congestion, Mouth Pain, Mouth Swelling, Throat Pain, Throat Swelling, Other Respiratory: negative: Cough, Dry, Shortness of Breath, Hemoptysis, SOB with Excertion, Pleuritic Pain, Sputum, Wheezing Cardiovascular: negative: chest pain, palpitations, orthopnea, paroxysmal nocturnal dyspnea, edema, light headedness, other Gastrointestinal: negative: Nausea, Vomiting, Abdominal Pain, Diarrhea, Constipation, Melena, Hematochezia, Other Genitourinary: negative: Dysuria, Frequency, Incontinence, Hematuria, Retention , Other Musculoskeletal: negative: Neck Pain, Shoulder Pain, Arm Pain, Back Pain, Hand Pain, Leg Pain, Foot Pain, Other Skin: negative: Rash, Lesions, Jimmy, Bruising, Other - Medications/Allergies Allergies/Adverse Reactions: Allergies Allergy/AdvReac Type Severity Reaction Status Date / Time No Known Drug Allergies Allergy Verified 08/07/17 04:46 Medications: Current Medications Acetaminophen (Tylenol) 650 mg PO Q4H PRN PRN Reason: Headache/Fever or Pain Hydrocodone Bitart/Acetaminophen ([place] 5/325) 1 tab PO Q4H PRN PRN Reason: Moderate Pain (4-6) Al Hydroxide/Mg Hydroxide (Maalox) 15 ml PO Q4H PRN PRN Reason: Heartburn or Indigestion Amitriptyline HCl (Elavil) 100 mg PO HS [facility] Artificial Tears (Tears Naturale) 0 drop EA EYE PRN PRN PRN Reason: Dry Eyes Aspirin (Ecotrin) 81 mg PO DAILY [facility] Last Admin: 12/15/17 09:02 Dose: 81 mg Baclofen (Lioresal) 30 mg PO Q6H [facility] Last Admin: 12/15/17 09:01 Dose: 30 mg Dextrose/Water (Dextrose 50%) 25 gm SLOW IVP PRN PRN PRN Reason: Hypoglycemia Docusate Sodium (Colace) 100 mg PO BID [facility] Last Admin: 12/15/17 09:03 Dose: 100 mg Enoxaparin Sodium (Lovenox) 30 mg SC 0900 [facility] Last Admin: 12/15/17 09:03 Dose: 30 mg Famotidine (Pepcid) 20 mg PO BID [facility] Last Admin: 12/15/17 09:02 Dose: 20 mg Gabapentin (Neurontin) 300 mg PO Q6HR [facility] Glucagon (Glucagon) 1 mg IM PRN PRN PRN Reason: Hypoglycemia Guaifenesin (Robitussin Sf) 200 mg PO Q4H PRN PRN Reason: Cough Hydralazine HCl (Apresoline) 10 mg SLOW IVP Q4H PRN PRN Reason: Systolic BP > 180 Sodium Chloride (Normal Saline 0.9%) 1,000 mls @ 125 mls/hr IV .Q8H [facility] Last Admin: 12/15/17 04:47 Dose: 1,000 mls Cefepime HCl 2 gm/ Syringe 2.5 (ml/ Sterile Water) 12.5 mls @ 150 mls/hr SLOW IVP 0100,1300 [facility] Last Admin: 12/15/17 01:37 Dose: 12.5 mls Vancomycin HCl 1.5 gm/ Sodium (Chloride) 300 mls @ 200 mls/hr IVPB 1000,2200 [facility] Last Admin: 12/15/17 10:17 Dose: 300 mls Dextrose/Water (D5w) 1,000 mls @ 0 mls/hr IV .Q0M PRN; As Directed PRN Reason: Hypoglycemia Insulin Human Lispro (Humalog) 0 units SC .MODERATE SLIDING SC PRN PRN Reason: Moderate Correctional Scale Insulin Human Lispro (Humalog) 0 units SC .BEDTIME SLIDING SC PRN PRN Reason: Bedtime Correctional Scale Loperamide HCl (Imodium) 2 mg PO PRN PRN PRN Reason: Diarrhea/Loose Stools Loratadine (Claritin) 10 mg PO DAILYPRN PRN PRN Reason: Sinus Symptoms Magnesium Hydroxide (Milk Of Magnesium) 30 ml PO DAILYPRN PRN PRN Reason: Constipation Metformin HCl (Glucophage) 1,000 mg PO BID-[facility] Last Admin: 12/15/17 09:02 Dose: 1,000 mg Mineral Oil/White Petrolatum (Eucerin Cream) 0 gm TOP BIDPRN PRN PRN Reason: Dry Skin Miscellaneous Medication (Pharmacy To Dose) 1 each IVPB PRN PRN PRN Reason: . Multivitamins (Theragran) 1 tab PO DAILY [facility] Last Admin: 12/15/17 09:02 Dose: 1 tab Ondansetron HCl (Zofran Odt) 4 mg PO Q6H PRN PRN Reason: Nausea/Vomiting Ondansetron HCl (Zofran) 4 mg IVP Q6H PRN PRN Reason: Nausea/Vomiting Phenol (Chloraseptic [place] 180 Ml Bot) 0 ml PO PRN PRN PRN Reason: Sore Throat Polyethylene Glycol (Miralax) 17 gm PO DAILY [facility] Last Admin: 12/15/17 09:01 Dose: 17 gm Saccharomyces Boulardii (Florastor) 250 mg PO DAILY [facility] Last Admin: 12/15/17 09:02 Dose: 250 mg Senna (Senokot) 2 tab PO HSPRN PRN PRN Reason: Constipation Sodium Chloride ([place] Nasal [place] 0.65%) 0 ml EA NARE QIDPRN PRN PRN Reason: Nasal Congestion Temazepam (Restoril) 15 mg PO HSPRN PRN PRN Reason: Insomnia
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
[2017-12-15] MEDS: Gabapentin 300 MG CAP PO SCH ×2 (14:18→17:25)
[2017-12-15] MEDS: Amitriptyline HCl 100 MG TAB PO SCH (21:00)
[2017-12-15 21:11] LABS: Vancomycin, Trough 23.6 ug/mL
[2017-12-15] MEDS: Acetaminophen 325 MG TAB PO PRN (22:05)
[2017-12-16] MEDS: Gabapentin 300 MG CAP PO SCH ×5 (00:31→23:53)
[2017-12-16] MEDS: Baclofen 10 MG TAB PO SCH ×4 (00:32→20:42)
[2017-12-16] MEDS: Amitriptyline HCl 100 MG TAB PO SCH ×2 (00:32→20:35)
[2017-12-16] MEDS: Sodium Chloride 0.9% 1,000 ML IV SCH ×4 (00:34→17:21)
[2017-12-16] MEDS: Cefepime 2 GM, Syringe 2.5 ML in Sterile Water 10 ML SLOW IVP SCH (01:58)
[2017-12-16 04:42] LABS: #Eosinphils 0.3 thou/uL (0.0-0.7); #Lymphocytes 1.5 thou/uL (1.20-3.40); #Monocytes 1.1 thou/uL (0.11-0.59); %Basophils 0.2 % (0.0-1.0); %Eosinophils 2.7 % (0.0-10.0); %Lymphocytes 13.9 % (21.0-51.0); %Monocytes 10.2 % (0.0-10.0); Hemoglobin 8.9 g/dL (14.0-18.0); Mean Corpuscular HGB CONC 30.7 g/dL (32.0-36.0); Mean Corpuscular Hemoglobin 26.8 pg (27.0-31.0); Mean Corpuscular Volume 87.6 fl (80.0-94.0); Mean Platelet Volume 7.5 fL (7.4-10.4); Platelet Count 198 thou/uL (130-400); RBC Distribution Width 13.3 % (11.5-14.5); Red Blood Cell (RBC) Count 3.33 mill/uL (4.70-6.10); White Blood Cell (WBC) Count 10.9 thou/uL (4.8-10.8)
[2017-12-16 05:05] LABS: Anion Gap 15 mmol/L (10-20); BUN (Urea Nitrogen) 13 mg/dL (8.9-20.6); Calc. Creatinine Clearance 162 mL/min (70-130); Calcium 9.2 mg/dL (7.8-10.44); Carbon Dioxide 17 mmol/L (22-29); Chloride 111 mmol/L (98-107); Estimated GFR-MDRD Greater than 90; Glucose 115 mg/dL (70-105); Potassium 4.2 mmol/L (3.5-5.1); Sodium 139 mmol/L (136-145)
[2017-12-16] MEDS: Acetaminophen 325 MG TAB PO PRN ×2 (05:53→20:35)
[2017-12-16] MEDS: metFORMIN 500 MG TAB PO SCH ×2 (08:00→17:17)
[2017-12-16] MEDS: Meropenem 1 GM in Sterile Water 20 ML SLOW IVP SCH ×2 (08:23→17:17)
[2017-12-16] MEDS: Saccharomyces boulardii 250 MG CAP PO SCH (08:24)
[2017-12-16] MEDS: Famotidine 20 MG TAB PO SCH ×2 (08:24→20:36)
[2017-12-16] MEDS: Aspirin 81 mg Enteric Coated Tablet PO SCH (08:24)
[2017-12-16] MEDS: Docusate 100 MG CAP PO SCH ×2 (08:24→20:36)
[2017-12-16] MEDS: Polyethylene Glycol 3350 17 GM Packet PO SCH (08:25)
[2017-12-16] MEDS: Multivit, Therapeutic 1 TAB PO SCH (08:25)
[2017-12-16] MEDS: Enoxaparin Sodium 30 MG/0.3 ML SYRINGE SC SCH (08:26)
--- NOTE | 2017-12-16 13:23 | CT ---
CHEST CT WITH CONTRAST ABDOMEN CT WITH CONTRAST PELVIC CT WITH CONTRAST: Date: 12/16/17 HISTORY: Quadriplegic patient. Fever of unknown origin. COMPARISON: None. TECHNIQUE: Chest, abdomen and pelvis CT are performed with IV contrast. Coronal reformatted images are submitted for interpretation. FINDINGS: CHEST CT: Note is made of a tracheostomy. There are areas of consolidation with air bronchograms involving the right lower lobe, middle lobe, and to a lesser extent left lower lobe. Multifocal pneumonia or atelec tasis should be considered. There is a small left and right-sided pleural effusion. There is no pneum othorax. Trachea and central bronchi are patent. No mediastinal mass, lymphadenopathy, or hematoma. Heart size is within normal limits. No pericardial effusion. The central pulmonary arteries are adequately opacified with contrast, without filling def ect. The thoracic aorta and abdominal aorta have a normal caliber. No periaortic fat stranding. ABDOMEN CT: Limited evaluation from beam attenuation artifact due to the patient having his arms at his side. Yolanda ssly, the liver, spleen, pancreas, and adrenal glands have appropriate enhancement. Gallbladder is unremarkable. Symmetric enhancement of the kidneys. Bilaterally, no obstructive uropathy. No gastrohepatic, retrocrural, or periportal lymphadenopathy. Symmetric attenuation of psoas muscles. No mesenteric mass, lymphadenopathy, free air, or free fluid. Limited evaluation of the gastric mucosa due to inadequate distention. Duodenum is unremarkable. Mult iple normal caliber small bowel loops. Ileocecal junction is normal. Normal caliber appendix. Contras t and fecal material throughout a nondistended, nondilated colon. No evidence of mucosal thickening. Moderate amount of fecal material in the left hemicolon. Correlate for constipation. PELVIC CT: There is a suprapubic catheter which decompresses the urinary bladder. No pelvic mass, lymphadenopath y, free air, or free fluid. No lytic or blastic lesions in the osseous structures. IMPRESSION: 1. Multifocal consolidation with air bronchograms. Correlate for multifocal pneumonia versus atelect asis. 2. No acute abnormality in the abdomen or pelvis. 3. Fecal material throughout the colon. Correlate for constipation. POS: [facility]
[2017-12-16] MEDS ORDERED: Amlodipine 10 MG TAB PO SCH (13:45)
[2017-12-16] MEDS ORDERED: Atenolol 50 MG TAB PO SCH (13:45)
[2017-12-16] MEDS ORDERED: Iopamidol 370 76% 100 ML VIAL ONE (13:55)
[2017-12-16] MEDS ORDERED: Meropenem 1 GM in Sodium Chloride 0.9% 100 ML IVPB SCH (14:00)
--- NOTE | 2017-12-16 16:54 | PDOC.PN ---
- Subjective Encounter Start Date: 12/16/17 Encounter Start Time: 16:45 Subjective: f/u for sepsis likely UTI source with polymicrobial cx. Currently on -: Meropenem. States multiple BM's. Overall feeling better. - Objective MAR Reviewed: Yes Vital Signs & Weight: Vital Signs (12 hours) Temp Pulse Resp BP BP Pulse Ox 12/16/17 16:02 98.6 F 106 H 16 130/86 12/16/17 12:19 98.9 F 102 H 16 166/127 H 98 12/16/17 08:00 100.4 F H 106 H 16 12/16/17 07:17 100.4 F H 106 H 16 144/84 H 98 Weight Weight 227 lb 1.6 oz I&O: 12/15/17 12/16/17 12/17/17 06:59 06:59 06:59 Intake Total 1500 Output Total 1700 1150 Balance -200 -1150 Result Diagrams: 12/16/17 04:15 12/16/17 04:15 Additional Labs: Accuchecks 12/16/17 12/16/17 12/15/17 12:19 04:45 20:47 POC Glucose 103 130 H 131 H Microbiology 12/14/17 10:35 Urine Suprapubic catheter Urine Culture - Final Enterobacter cloacae complex Klebsiella pneumoniae ssp pneu 12/14/17 10:35 Urine Suprapubic catheter Urine Culture - Final 12/14/17 10:35 Nasal swab Influenza Types A,B Direct EIA - Final 12/14/17 10:13 Venous blood - Left Hand Blood Culture - Preliminary Coagulase Neg Staphylococcus Staphylococcus species 12/14/17 10:04 Venous blood - Right Hand Blood Culture - Preliminary NO GROWTH AT 48 HOURS Laboratory Tests 12/14/17 12/14/17 12/15/17 10:04 10:04 03:59 WBC 16.5 H Hgb 9.2 L Creatinine 1.58 H 0.89 Vancomycin Trough 12/15/17 12/15/17 03:59 20:43 WBC 16.8 H Hgb 9.6 L Creatinine Vancomycin Trough 23.6 Radiology Reviewed by me: Yes (CT abd/pel - multiple air bronchograms, large amt stool) Phys Exam - Physical Examination alert, talkative, smiling HEENT: PERRLA, oral pharynx no lesions trach in place with T-collar Neck: no JVD, supple Respiratory: no wheezing, clear to auscultation bilateral Cardiovascular: RRR Gastrointestinal: soft, non-tender, no distention, positive bowel sounds Musculoskeletal: pulses present, edema present Psychiatric: A&O x 3 Skin: normal turgor, cap refill <2 seconds Deviation from normal: Suprapubic catheter in place Dx/Plan (1) Sepsis with acute organ dysfunction Code(s): A41.9 - SEPSIS, UNSPECIFIED ORGANISM; R65.20 - SEVERE SEPSIS WITHOUT SEPTIC SHOCK Status: Acute Comment: Likely due to urinary source with indwelling SPT, continue Meropenem 1gm IV q8h (2) Acute kidney failure Status: Acute Comment: Improved with IVF's, avoid nephrotoxic meds and contrast media (3) UTI (urinary tract infection) due to urinary indwelling Ingram catheter Code(s): T83.511A - I/I REACT D/T INDWELLING URETHRAL CATHETER, INIT; N39.0 - URINARY TRACT INFECTION, SITE NOT SPECIFIED Status: Acute Qualifiers: Indwelling urinary catheter type: cystostomy catheter Comment: Chronic indwelling suprapubic catheter (4) Chronic anemia Code(s): D64.9 - ANEMIA, UNSPECIFIED Status: Chronic Comment: chronic, stable (5) Chronic complete quadriplegia Code(s): G82.50 - QUADRIPLEGIA, UNSPECIFIED Status: Chronic Comment: Turning protocol, low-air loss mattress, skin protection (6) Constipation Code(s): K59.00 - CONSTIPATION, UNSPECIFIED Status: Chronic Qualifiers: Constipation type: slow transit constipation Qualified Code(s): K59.01 - Slow transit constipation Comment: Continue Colace, Senokot and Miralax (7) DM type 2 (diabetes mellitus, type 2) Status: Chronic Qualifiers: Comment: Continue Metformin and ISS (8) Decubitus ulcer of buttock, stage 2 Code(s): L89.302 - PRESSURE ULCER OF UNSPECIFIED BUTTOCK, STAGE 2 Status: Chronic Qualifiers: Comment: Turning protocol, Local WCT (9) Neurogenic bladder Code(s): N31.9 - NEUROMUSCULAR DYSFUNCTION OF BLADDER, UNSPECIFIED Status: Chronic Comment: (10) Obesity (BMI 30.0-34.9) Code(s): E66.9 - OBESITY, UNSPECIFIED Status: Chronic - Plan continue antibiotics, PT/OT, social studies department chair, DVT proph w/SCDs Continue Meropenem 1gm IV q8h -: Continue IVF's -: Resume home Atenolol and Norvasc for BP control -: Continue routine skin care, turning protocol and WCT -: Trach care * AM lab: BMP, CBC
[2017-12-16 18:50] LABS: Legionella Urinary Ag Negative (Negative); Strep pneumo Urine Ag NEGATIVE (NEGATIVE)
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
[2017-12-16] MEDS: tiZANidine HCl 4 MG TAB PO SCH (22:54)
[2017-12-17] MEDS: Meropenem 1 GM in Sterile Water 20 ML SLOW IVP SCH ×3 (00:30→18:16)
[2017-12-17] MEDS: Baclofen 10 MG TAB PO SCH ×5 (02:24→20:07)
[2017-12-17 05:29] LABS: Anion Gap 14 mmol/L (10-20); BUN (Urea Nitrogen) 7 mg/dL (8.9-20.6); Calc. Creatinine Clearance 187 mL/min (70-130); Calcium 9.1 mg/dL (7.8-10.44); Carbon Dioxide 21 mmol/L (22-29); Chloride 108 mmol/L (98-107); Estimated GFR-MDRD Greater than 90; Glucose 122 mg/dL (70-105); Sodium 139 mmol/L (136-145)
[2017-12-17] MEDS: Gabapentin 300 MG CAP PO SCH ×3 (05:50→18:13)
[2017-12-17] MEDS: tiZANidine HCl 4 MG TAB PO SCH ×3 (05:50→21:16)
[2017-12-17 06:08] LABS: Hemoglobin 8.8 g/dL (14.0-18.0); Mean Corpuscular HGB CONC 31.2 g/dL (32.0-36.0); Mean Corpuscular Hemoglobin 27.3 pg (27.0-31.0); Mean Corpuscular Volume 87.2 fl (80.0-94.0); Mean Platelet Volume 8.3 fL (7.4-10.4); Platelet Count 169 thou/uL (130-400); RBC Distribution Width 13.4 % (11.5-14.5); Red Blood Cell (RBC) Count 3.23 mill/uL (4.70-6.10); White Blood Cell (WBC) Count 8.4 thou/uL (4.8-10.8)
[2017-12-17 06:09] LABS: Band 6 % (5-11); Eosinophils 5 % (0-10); Lymphocytes 16 % (21-51); MDiff Complete? YES; Monocytes 13 % (0-10); Neutrophil 60 % (42-75)
[2017-12-17] MEDS: Sodium Chloride 0.9% 1,000 ML IV SCH ×3 (06:16→20:09)
[2017-12-17] MEDS ORDERED: Saccharomyces boulardii 250 MG CAP PO SCH (09:00)
[2017-12-17] MEDS ORDERED: Non-Formulary Item 1 EACH (Cran/Vitc/Mannose/Fos/Bromeln [Uti-Stat Liquid] 3,875 MG) PO SCH (09:00)
[2017-12-17] MEDS: metFORMIN 500 MG TAB PO SCH ×2 (09:12→16:40)
[2017-12-17] MEDS: Amlodipine 10 MG TAB PO SCH (09:12)
[2017-12-17] MEDS: Multivit, Therapeutic 1 TAB PO SCH (09:13)
[2017-12-17] MEDS: Aspirin 81 mg Enteric Coated Tablet PO SCH (09:13)
[2017-12-17] MEDS: Famotidine 20 MG TAB PO SCH ×2 (09:13→20:08)
[2017-12-17] MEDS: Saccharomyces boulardii 250 MG CAP PO SCH (09:13)
[2017-12-17] MEDS: Docusate 100 MG CAP PO SCH ×2 (09:14→20:08)
[2017-12-17] MEDS: Atenolol 50 MG TAB PO SCH (09:14)
[2017-12-17] MEDS: Polyethylene Glycol 3350 17 GM Packet PO SCH (09:16)
[2017-12-17] MEDS: Enoxaparin Sodium 30 MG/0.3 ML SYRINGE SC SCH (09:30)
--- NOTE | 2017-12-17 18:36 | PDOC.PN ---
- Subjective Encounter Start Date: 12/17/17 Encounter Start Time: 18:30 Subjective: f/u for sepsis likely urine with pulmonic sources. Chronic indwelling supra -: pubic catheter. CT of chest showing multifocal infiltrates vs atelectasis. -: Currently on Meropenem. - Objective MAR Reviewed: Yes Vital Signs & Weight: Vital Signs (12 hours) Temp Pulse Resp BP BP Pulse Ox 12/17/17 09:39 98.5 F 90 22 H 94 L 12/17/17 09:14 90 134/86 12/17/17 09:12 90 134/86 12/17/17 07:16 98.5 F 90 16 134/86 94 L Weight Weight 227 lb 1.6 oz I&O: 12/16/17 12/17/17 12/18/17 06:59 06:59 06:59 Intake Total 2500 2320 Output Total 1150 4200 3750 Balance -1150 -1700 -1430 Result Diagrams: 12/17/17 04:20 12/17/17 04:20 Additional Labs: Accuchecks 12/17/17 12/17/17 12/17/17 16:54 11:29 03:56 POC Glucose 178 H 142 H 126 H 12/16/17 20:06 POC Glucose 129 H Microbiology 12/16/17 18:00 Nasopharyngeal swab Respiratory Virus Panel (PCR) ([facility]) - Final 12/14/17 10:35 Urine Suprapubic catheter Urine Culture - Final Enterobacter cloacae complex Klebsiella pneumoniae ssp pneu 12/14/17 10:35 Urine Suprapubic catheter Urine Culture - Final 12/14/17 10:35 Nasal swab Influenza Types A,B Direct EIA - Final 12/14/17 10:13 Venous blood - Left Hand Blood Culture - Preliminary Coagulase Neg Staphylococcus Staphylococcus species 12/14/17 10:04 Venous blood - Right Hand Blood Culture - Preliminary NO GROWTH AT 48 HOURS Laboratory Tests 12/14/17 12/14/17 12/15/17 10:04 10:04 03:59 WBC 16.5 H Hgb 9.2 L Creatinine 1.58 H 0.89 Vancomycin Trough Ur L.pneumophila Ag Ur Strep pneumoniae Ag 12/15/17 12/15/17 12/16/17 03:59 20:43 04:15 WBC 16.8 H 10.9 H Hgb 9.6 L 8.9 L Creatinine Vancomycin Trough 23.6 Ur L.pneumophila Ag Ur Strep pneumoniae Ag 12/16/17 12/16/17 18:00 18:00 WBC Hgb Creatinine Vancomycin Trough Ur L.pneumophila Ag Negative Ur Strep pneumoniae Ag NEGATIVE Radiology Reviewed by me: Yes (CT chst/abd/pelv - multifocal opacities in chest vs atelectasis) Phys Exam - Physical Examination Constitutional: NAD alert, responsive, smiling HEENT: PERRLA, oral pharynx no lesions Trach in place with T-piece Neck: no JVD, supple Respiratory: no wheezing Cardiovascular: RRR Gastrointestinal: soft, non-tender, no distention, positive bowel sounds Musculoskeletal: pulses present Psychiatric: A&O x 3 Skin: normal turgor, cap refill <2 seconds Dx/Plan (1) Sepsis with acute organ dysfunction Code(s): A41.9 - SEPSIS, UNSPECIFIED ORGANISM; R65.20 - SEVERE SEPSIS WITHOUT SEPTIC SHOCK Status: Acute Comment: Likely due to urinary source with indwelling SPT and pulmonic contribution, continue Meropenem 1gm IV q8h another 24h then convert to po (2) Acute kidney failure Status: Acute Comment: Improved with IVF's, avoid nephrotoxic meds and contrast media (3) UTI (urinary tract infection) due to urinary indwelling Ingram catheter Code(s): T83.511A - I/I REACT D/T INDWELLING URETHRAL CATHETER, INIT; N39.0 - URINARY TRACT INFECTION, SITE NOT SPECIFIED Status: Acute Qualifiers: Indwelling urinary catheter type: cystostomy catheter Comment: Chronic indwelling suprapubic catheter (4) Chronic anemia Code(s): D64.9 - ANEMIA, UNSPECIFIED Status: Chronic Comment: chronic, stable (5) Chronic complete quadriplegia Code(s): G82.50 - QUADRIPLEGIA, UNSPECIFIED Status: Chronic Comment: Turning protocol, low-air loss mattress, skin protection (6) Constipation Code(s): K59.00 - CONSTIPATION, UNSPECIFIED Status: Chronic Qualifiers: Constipation type: slow transit constipation Qualified Code(s): K59.01 - Slow transit constipation Comment: Continue Colace, Senokot and Miralax (7) DM type 2 (diabetes mellitus, type 2) Status: Chronic Qualifiers: Comment: Continue Metformin and ISS (8) Decubitus ulcer of buttock, stage 2 Code(s): L89.302 - PRESSURE ULCER OF UNSPECIFIED BUTTOCK, STAGE 2 Status: Chronic Qualifiers: Comment: Turning protocol, Local WCT (9) Neurogenic bladder Code(s): N31.9 - NEUROMUSCULAR DYSFUNCTION OF BLADDER, UNSPECIFIED Status: Chronic Comment: (10) Obesity (BMI 30.0-34.9) Code(s): E66.9 - OBESITY, UNSPECIFIED Status: Chronic - Plan continue antibiotics, PT/OT, respiratory therapy, DVT proph w/SCDs Stable overall -: Continue Meropenem another 24h then convert to po -: General pulmonary support, trach care -: Turning protocol, skin care -: Likely back to SNF in 24-48h * .
[2017-12-17] MEDS: Amitriptyline HCl 100 MG TAB PO SCH (20:07)
[2017-12-17] MEDS: Acetaminophen 325 MG TAB PO PRN (20:08)
[2017-12-18] MEDS: Gabapentin 300 MG CAP PO SCH ×5 (00:06→23:52)
[2017-12-18] MEDS: Sodium Chloride 0.9% 1,000 ML IV SCH ×3 (01:28→15:12)
[2017-12-18] MEDS: Baclofen 10 MG TAB PO SCH ×4 (03:28→20:54)
[2017-12-18] MEDS: tiZANidine HCl 4 MG TAB PO SCH ×3 (05:20→21:59)
[2017-12-18] MEDS: metFORMIN 500 MG TAB PO SCH ×2 (08:22→17:34)
[2017-12-18] MEDS: Meropenem 1 GM in Sterile Water 20 ML SLOW IVP SCH ×4 (08:22→23:53)
[2017-12-18] MEDS: Multivit, Therapeutic 1 TAB PO SCH (08:23)
[2017-12-18] MEDS: Amlodipine 10 MG TAB PO SCH (08:23)
[2017-12-18] MEDS: Polyethylene Glycol 3350 17 GM Packet PO SCH (08:23)
[2017-12-18] MEDS: Famotidine 20 MG TAB PO SCH ×2 (08:23→20:54)
[2017-12-18] MEDS: Aspirin 81 mg Enteric Coated Tablet PO SCH (08:24)
[2017-12-18] MEDS: Docusate 100 MG CAP PO SCH ×2 (08:24→20:54)
[2017-12-18] MEDS: Enoxaparin Sodium 30 MG/0.3 ML SYRINGE SC SCH (08:24)
[2017-12-18] MEDS: Saccharomyces boulardii 250 MG CAP PO SCH (08:25)
[2017-12-18] MEDS: Atenolol 50 MG TAB PO SCH (08:28)
--- NOTE | 2017-12-18 14:59 | PDOC.PN ---
- Subjective Encounter Start Date: 12/18/17 Encounter Start Time: 14:45 Subjective: f/u for sepsis likely due to urinary and pulmonic sources. Overall clinical -: improvement. No complaints currently. BM's regular. No fever or cough. - Objective MAR Reviewed: Yes Vital Signs & Weight: Vital Signs (12 hours) Temp Pulse Resp BP BP Pulse Ox 12/18/17 12:00 98.6 F 95 20 140/94 H 93 L 12/18/17 08:28 87 150/97 H 12/18/17 08:23 87 150/97 H 12/18/17 08:00 98.4 F 87 18 94 L 12/18/17 07:51 98.4 F 87 18 150/97 H 94 L 12/18/17 04:32 98.4 F 86 18 141/91 H 96 Weight Weight 227 lb 1.6 oz I&O: 12/17/17 12/18/17 12/19/17 06:59 06:59 06:59 Intake Total 2500 4450 Output Total 4200 6100 Balance -1700 -1650 Result Diagrams: 12/17/17 04:20 12/17/17 04:20 Additional Labs: Accuchecks 12/18/17 12/17/17 12/17/17 04:13 20:43 16:54 POC Glucose 170 H 159 H 178 H Phys Exam - Physical Examination Constitutional: NAD alert, responsive HEENT: PERRLA, oral pharynx no lesions Trach in place with T-collar Neck: no nodes, no JVD, supple Respiratory: no wheezing, clear to auscultation bilateral Cardiovascular: RRR Gastrointestinal: soft, non-tender, no distention, positive bowel sounds Musculoskeletal: no edema, pulses present Psychiatric: A&O x 3 Skin: normal turgor, cap refill <2 seconds Dx/Plan (1) Sepsis with acute organ dysfunction Code(s): A41.9 - SEPSIS, UNSPECIFIED ORGANISM; R65.20 - SEVERE SEPSIS WITHOUT SEPTIC SHOCK Status: Acute Comment: Likely due to urinary source with indwelling SPT and pulmonic contribution, continue Meropenem 1gm IV q8h another 24h then convert to po (2) Acute kidney failure Status: Acute Comment: Improved with IVF's, avoid nephrotoxic meds and contrast media (3) UTI (urinary tract infection) due to urinary indwelling Ingram catheter Code(s): T83.511A - I/I REACT D/T INDWELLING URETHRAL CATHETER, INIT; N39.0 - URINARY TRACT INFECTION, SITE NOT SPECIFIED Status: Acute Qualifiers: Indwelling urinary catheter type: cystostomy catheter Comment: Chronic indwelling suprapubic catheter (4) Chronic anemia Code(s): D64.9 - ANEMIA, UNSPECIFIED Status: Chronic Comment: chronic, stable (5) Chronic complete quadriplegia Code(s): G82.50 - QUADRIPLEGIA, UNSPECIFIED Status: Chronic Comment: Turning protocol, low-air loss mattress, skin protection (6) Constipation Code(s): K59.00 - CONSTIPATION, UNSPECIFIED Status: Chronic Qualifiers: Constipation type: slow transit constipation Qualified Code(s): K59.01 - Slow transit constipation Comment: Continue Colace, Senokot and Miralax (7) DM type 2 (diabetes mellitus, type 2) Status: Chronic Qualifiers: Comment: Continue Metformin and ISS (8) Decubitus ulcer of buttock, stage 2 Code(s): L89.302 - PRESSURE ULCER OF UNSPECIFIED BUTTOCK, STAGE 2 Status: Chronic Qualifiers: Comment: Turning protocol, Local WCT (9) Neurogenic bladder Code(s): N31.9 - NEUROMUSCULAR DYSFUNCTION OF BLADDER, UNSPECIFIED Status: Chronic Comment: (10) Obesity (BMI 30.0-34.9) Code(s): E66.9 - OBESITY, UNSPECIFIED Status: Chronic - Plan continue antibiotics, PT/OT, social media content specialist, respiratory therapy, DVT proph w/ SCDs Stable overall -: Continue Meropenem 1gm IV q8h another 24h -: Plan to start Augmentin 12/19/17 -: Decrease IVF 75ml/h -: Anticipate d/c in am * .
[2017-12-18] MEDS: Amitriptyline HCl 100 MG TAB PO SCH (20:55)
[2017-12-19] MEDS: Sodium Chloride 0.9% 1,000 ML IV SCH (04:10)
[2017-12-19] MEDS: Baclofen 10 MG TAB PO SCH ×3 (04:10→14:39)
[2017-12-19] MEDS: Gabapentin 300 MG CAP PO SCH ×2 (05:37→12:17)
[2017-12-19] MEDS: tiZANidine HCl 4 MG TAB PO SCH ×2 (05:37→14:39)
[2017-12-19] MEDS: Polyethylene Glycol 3350 17 GM Packet PO SCH (08:20)
[2017-12-19] MEDS: Multivit, Therapeutic 1 TAB PO SCH (08:22)
[2017-12-19] MEDS: metFORMIN 500 MG TAB PO SCH (08:22)
[2017-12-19] MEDS: Aspirin 81 mg Enteric Coated Tablet PO SCH (08:22)
[2017-12-19] MEDS: Famotidine 20 MG TAB PO SCH (08:22)
[2017-12-19] MEDS: Amlodipine 10 MG TAB PO SCH (08:22)
[2017-12-19] MEDS: Saccharomyces boulardii 250 MG CAP PO SCH (08:22)
[2017-12-19] MEDS: Docusate 100 MG CAP PO SCH (08:22)
[2017-12-19] MEDS: Enoxaparin Sodium 30 MG/0.3 ML SYRINGE SC SCH (08:22)
[2017-12-19] MEDS: Atenolol 50 MG TAB PO SCH (08:27)
[2017-12-19] MEDS: Meropenem 1 GM in Sterile Water 20 ML SLOW IVP SCH (08:27)
[2017-12-19 12:24] VITALS: BP 150/96; TEMP 98
--- NOTE | 2017-12-19 17:29 | DIS ---
DATE OF ADMISSION: 12/14/2017 DATE OF DISCHARGE: 12/19/2017 DISCHARGE DIAGNOSES: 1. Sepsis with acute organ dysfunction, secondarily to urinary tract infection and suspected pneumon ia, resolved. 2. Urinary tract infection with chronic indwelling suprapubic catheter with Enterobacter cloacae com plex and Klebsiella pneumonia species. 3. Question of pneumonia, likely gram positive cocci. 4. Chronic hypoxemic respiratory failure with tracheostomy and oxygen supplementation at 5 liters pe r minute by trach collar. 5. Acute kidney injury, resolved. 6. Quadriplegia, chronic. 7. Constipation, resolved. 8. Diabetes mellitus, type 2, insulin requiring. 9. Stage 2 decubitus ulcer. 10. Neurogenic bladder. CONSULTATIONS: Dr. Florence with Infectious Disease Service. PERTINENT LABORATORY AND X-RAY FINDINGS: Potassium ranged between 4.0-5.6, creatinine ranged between 0.72-1.58 with estimated GFR ranging between 47 to greater than 90. Lactic acid level 1.4. LFTs wi thin normal limits. CBC showed a white blood cell count ranging between 8.4-16.8, hemoglobin ranged between 8.8-9.6. Urinary Legionella pneumophila antigen negative on 12/16/2017. Urinary Streptococc us pneumonia antigen negative on 12/16/2017. Blood cultures dated 12/14/2017 showed 1 out of 2 posit latisha for coagulase negative Staphylococcus. Influenza A and B antigen dated 12/14/2017 negative. Uri ne culture dated 12/14/2017 showed greater than 100,000 colonies of Enterobacter and Klebsiella speci es. Respiratory virus panel by PCR dated 12/16/2017 negative. Portable chest x-ray dated 12/14/2017 showed no acute cardiopulmonary process. CT of the chest, abdomen, and pelvis dated 12/16/2017 show ed multifocal consolidation with air bronchograms. No acute process identified in the abdomen or pel vis. Prominent fecal material throughout the colon. HOSPITAL COURSE: The patient was admitted initially presenting with questionable altered mentation a nd evidence for sepsis syndrome. The patient was placed on broad spectrum IV antibiotic therapy with suspected urinary tract source given a chronic indwelling suprapubic catheter due to neurogenic blad olman in the context of quadriplegia. The patient was continued on broad spectrum IV antibiotic therap y and evaluated by the Infectious Disease Service. The patient underwent evaluation including chest, abdomen and pelvic CT showing no acute process in the abdominal cavity or pelvis. The patient rut nued on meropenem throughout the remainder of the hospital course with urine culture showing Enteroba cter and Klebsiella species. The patient clinically stabilized with normalization of white blood aubree l count prior to discharge. The patient tolerating regular oral intake and maintaining O2 saturation s in the upper 90% range on 5 liters per minute by trach collar. Overall, the patient clinically sta ble and ready for discharge on 12/19/2017. DISCHARGE MEDICATIONS: 1. Augmentin 500 mg 1 tab p.o. b.i.d. x7 days. 2. Tylenol No. 3, 300/30 mg 1 tab p.o. q.8 hours p.r.n. 3. Amitriptyline 100 mg p.o. at bedtime. 4. Norvasc 10 mg 1 tab p.o. daily. 5. Enteric coated aspirin 81 mg 1 tab p.o. daily. 6. Atenolol 50 mg 1 tab p.o. daily. 7. Lipitor 40 mg p.o. at bedtime. 8. Baclofen 30 mg p.o. q.6 hours p.r.n. 9. Cranberry extract daily. 10. Docusate sodium 100 mg p.o. b.i.d. 11. Docusate enema 5 mL per rectum at bedtime. 12. Pepcid 20 mg p.o. at bedtime p.r.n. 13. Gabapentin 300 mg p.o. q.6 hours. 14. Insulin sliding scale with Humulin R. 15. Levemir 20 units subcutaneously at bedtime. 16. Magnesium oxide 400 mg p.o. daily. 17. Metformin 1000 mg p.o. b.i.d. 18. Multivitamin 1 tab p.o. daily. 19. MiraLax 17 grams p.o. daily. 20. Potassium chloride 20 mEq p.o. daily. 21. Florastor 250 mg p.o. daily. 22. Senokot 2 tabs p.o. at bedtime p.r.n. 23. Tizanidine 6 mg p.o. q.8 hours. FOLLOWUP: The patient will follow up with Dr. Dex Nunez at [facility]. CONDITION ON DISCHARGE: Fair. ACTIVITY: Ad obdulia. DIET: ADA. CODE STATUS: FULL. DISPOSITION: Discharged to [facility] on 12/19/2017. Total time preparing and coordinating discharge is 32 minutes.
--- NOTE | 2018-01-03 16:10 | EKG ---
Test Reason : Blood Pressure : / mmHG Vent. Rate : 104 BPM Atrial Rate : 104 BPM P-R Int : 212 ms QRS Dur : 104 ms QT Int : 326 ms P-R-T Axes : 028 -37 040 degrees QTc Int : 428 ms Sinus tachycardia with 1st degree A-V block Possible Left atrial enlargement Left axis deviation Left ventricular hypertrophy Abnormal ECG Confirmed by OLEGARIO WILLIAM M.D. ([id number]), offline editor HARVINDER COX ([id number] on 01/03/2018 4:09:33 PM Referred By: Confirmed By:OLEGARIO WILLIAM M.D.
== END 2017-12-19 14:53 | DRG 698 ==
LOC: ERS 09:40 → ERHOLD 11:19 → IMCU/EMU 19:22 → T4-A 12-15 12:08
PROVIDERS: ADMIT Internal Medicine Nephrology; ATTEND Internal Medicine Nephrology
DX: T83.510A Infection and inflammatory reaction due to cystostomy catheter, initial encounter (principal); A41.89 Other specified sepsis; G93.41 Metabolic encephalopathy; J18.9 Pneumonia, unspecified organism; J96.11 Chronic respiratory failure with hypoxia; L89.302 Pressure ulcer of unspecified buttock, stage 2; N17.9 Acute kidney failure, unspecified; R53.2 Functional quadriplegia; R65.20 Severe sepsis without septic shock; E87.2 Acidosis; N39.0 Urinary tract infection, site not specified; Z93.0 Tracheostomy status; Y83.3 Surgical operation with formation of external stoma as the cause of abnormal reaction of the patient, or of later complication, without mention of misadventure at the time of the procedure; E87.5 Hyperkalemia; E78.5 Hyperlipidemia, unspecified; N31.9 Neuromuscular dysfunction of bladder, unspecified; Z79.4 Long term (current) use of insulin; Z86.711 Personal history of pulmonary embolism; E11.9 Type 2 diabetes mellitus without complications; Z79.84 Long term (current) use of oral hypoglycemic drugs; D64.9 Anemia, unspecified; K59.01 Slow transit constipation; E66.9 Obesity, unspecified; Z68.30 Body mass index [BMI] 30.0-30.9, adult; F41.9 Anxiety disorder, unspecified; F32.9 Major depressive disorder, single episode, unspecified
CPT/HCPCS: 36415; 36416; 71045; 71260; 74177; 80048; 80053; 80202; 81003; 81015; 83605; 85007; 85025; 85027; 87040; 87077; 87086; 87149; 87186; 87633; 87804; 87899; 93005; 94640; 94760; 96361; 96365; 96366; 96374; 96375; A4216; A4353; G8996-GN-CH; G8997-GN-CH; J0692; J1650; J1720; J2185; J2405; J3370; J7050

== ENCOUNTER 2020-06-17 19:44 | Emergency (ER) | payer MEDICARE, OTHER | END 2020-06-17 22:11 | LOC: ERS 19:44 | DX: J95.03 Malfunction of tracheostomy stoma (principal); I10 Essential (primary) hypertension; E11.40 Type 2 diabetes mellitus with diabetic neuropathy, unspecified; K21.9 Gastro-esophageal reflux disease without esophagitis; D64.9 Anemia, unspecified; E78.5 Hyperlipidemia, unspecified; F32.9 Major depressive disorder, single episode, unspecified; Z79.4 Long term (current) use of insulin; Z79.82 Long term (current) use of aspirin; Z79.899 Other long term (current) drug therapy | CPT/HCPCS: 31502 ==

== ENCOUNTER 2020-08-21 00:10 | Inpatient (IN) | payer MEDICARE, MEDICAID, OTHER ==
[2020-08-21] MEDS ORDERED: Ondansetron ODT 4 MG TAB PO PRN (01:35)
[2020-08-21] MEDS ORDERED: Acetaminophen 325 MG TAB PO PRN (01:35)
[2020-08-21] MEDS ORDERED: Ondansetron PF 4 MG/2 ML Vial IVP PRN (01:35)
[2020-08-21] MEDS ORDERED: HumaLOG 300 UNITS/3 ML VIAL SC PRN (01:35)
[2020-08-21] MEDS ORDERED: Acetaminophen 650 MG Suppository PR PRN (01:35)
[2020-08-21] MEDS ORDERED: Furosemide 20 MG/2 ML VIAL SLOW IVP SCH (02:15)
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
[2020-08-21] MEDS ORDERED: Vancomycin HCl 750 MG in Sodium Chloride 0.9% 250 ML 250 ML IVPB SCH (02:45)
[2020-08-21] MEDS: Cefepime 2 GM in Sodium Chloride 0.9% 100 ML IVPB SCH ×2 (02:51→14:53)
[2020-08-21] MEDS: HumaLOG 300 UNITS/3 ML VIAL SC PRN ×3 (05:47→18:09)
[2020-08-21] MEDS ORDERED: Diabetic Tussin 200 MG/10 ML UDCUP PO PRN (06:54)
[2020-08-21] MEDS ORDERED: Baclofen 10 MG TAB PO SCH ×2 (07:00→10:15)
--- NOTE | 2020-08-21 07:39 | RAD ---
Chest one view HISTORY: Hypoxia. Respiratory failure. Follow-up. COMPARISON: 08/20/2020. FINDINGS: Cardiac silhouette is magnified by projection and slightly shifted leftward on the current study. Opacity throughout the right pleural space and right lung has increased. Patchy infiltrate throughout the left lung has also progressed. Lines and tubes are unchanged in position. No evidence of pneumothorax. IMPRESSION : Continued worsening of right pleural fluid and bilateral infiltrates, right greater than left.
[2020-08-21 07:53] LABS: #Lymphocytes 0.8 thou/uL (1.20-3.40); #Monocytes 0.5 thou/uL (0.11-0.59); #Neutrophils 6.9 thou/uL (1.40-6.50); %Basophils 0.2 % (0.0-1.0); %Lymphocytes 9.5 % (21.0-51.0); %Monocytes 5.7 % (0.0-10.0); %Neutrophils 84.5 % (42.0-75.0); Hemoglobin 9.4 g/dL (14.0-18.0); Mean Corpuscular HGB CONC 31.3 g/dL (32.0-36.0); Mean Corpuscular Hemoglobin 25.5 pg (27.0-31.0); Mean Corpuscular Volume 81.5 fL (78.0-98.0); Mean Platelet Volume 7.7 fL (7.4-10.4); Platelet Count 285 thou/uL (130-400); RBC Distribution Width 14.9 % (11.5-14.5); Red Blood Cell (RBC) Count 3.68 mill/uL (4.70-6.10); White Blood Cell (WBC) Count 8.1 thou/uL (4.8-10.8)
[2020-08-21] MEDS ORDERED: Non-Formulary Item 1 EACH (Metformin Hcl [Metformin Hcl] 1,000 MG Tablet) PO SCH (08:00)
[2020-08-21 08:09] LABS: ALT (SGPT) 18 U/L (8-55); AST (SGOT) 23 U/L (5-34); Albumin 3.5 g/dL (3.5-5.0); Alkaline Phosphatase 115 U/L (40-110); Anion Gap 16 mmol/L (10-20); BUN (Urea Nitrogen) 34 mg/dL (8.9-20.6); Bilirubin, Total 0.3 mg/dL (0.2-1.2); Calc. Creatinine Clearance 73 mL/min (70-130); Calcium 8.8 mg/dL (7.8-10.44); Carbon Dioxide 21 mmol/L (22-29); Chloride 103 mmol/L (98-107); Estimated GFR-MDRD 38; Globulin 4.8 g/dL (2.4-3.5); Glucose 163 mg/dL (70-105); Potassium 4.4 mmol/L (3.5-5.1); Protein, Total 8.3 g/dL (6.0-8.3); Sodium 136 mmol/L (136-145)
[2020-08-21] MEDS: Scopolamine 1.5 mg/72 hour Patch TD SCH (08:11)
[2020-08-21] MEDS: Atenolol 50 MG TAB PO SCH (08:12)
[2020-08-21] MEDS: Amlodipine 10 MG TAB PO SCH (08:12)
[2020-08-21] MEDS: Gabapentin 300 MG CAP PO SCH ×4 (08:12→20:16)
[2020-08-21] MEDS: tiZANidine HCl 4 MG TAB PO SCH ×4 (08:12→20:13)
[2020-08-21] MEDS: Magnesium Oxide 400 MG TAB PO SCH ×2 (08:12→16:39)
[2020-08-21] MEDS: Lisinopril 5 MG TAB PO SCH (08:13)
[2020-08-21] MEDS: Polyethylene Glycol 3350 17 GM Packet PO SCH (08:13)
[2020-08-21] MEDS: Saccharomyces boulardii 250 MG CAP PO SCH (08:13)
[2020-08-21] MEDS: Multivit, Therapeutic 1 TAB PO SCH (08:13)
[2020-08-21] MEDS: Aspirin 81 mg Enteric Coated Tablet PO SCH (08:13)
[2020-08-21] MEDS: Heparin 5,000 UNITS/ML VIAL SC SCH ×2 (08:13→20:13)
[2020-08-21] MEDS ORDERED: Midazolam HCl 2 mg/2 ml Vial ONE (08:22)
[2020-08-21] MEDS ORDERED: Midazolam HCl 2 mg/2 ml Vial SLOW IVP SCH (08:30)
[2020-08-21] MEDS ORDERED: Acetaminophen 500 MG TAB PO SCH (08:45)
[2020-08-21] MEDS ORDERED: [UNRECOGNIZED DRUG - OTHER] PO SCH (09:00)
[2020-08-21] MEDS ORDERED: FOS PO SCH (09:00)
[2020-08-21] MEDS ORDERED: VITC PO SCH (09:00)
[2020-08-21] MEDS ORDERED: CRAN PO SCH (09:00)
[2020-08-21] MEDS ORDERED: MANNOSE PO SCH (09:00)
[2020-08-21] MEDS ORDERED: BROMELN PO SCH (09:00)
[2020-08-21] MEDS: Famotidine/PF 20 mg/2ml Vial SLOW IVP SCH ×2 (09:37→20:13)
[2020-08-21] MEDS: methylPREDNISolone Sod Succ 40 MG VIAL IVP SCH ×2 (11:22→17:52)
--- NOTE | 2020-08-21 12:41 | PRG ---
DATE OF SERVICE: 08/21/2020 I have read the note of Dr. Shanae Rodriges and agreed with her assessment and plan. Mr. Stinson was admitted with sepsis and respiratory failure and is currently on broad-spectrum antibiotic coverage. He is also followed by the intensive care service. Job ID: [id number]
[2020-08-21] MEDS: Baclofen 10 MG TAB PO SCH ×2 (13:02→17:52)
--- NOTE | 2020-08-21 14:08 | CON ---
DATE OF CONSULTATION: 08/21/2020 TIME SPENT: 35 minutes of critical care time. REASON FOR CONSULTATION: Acute on chronic respiratory failure. HISTORY OF PRESENT ILLNESS: The patient is a 50-year-old quadriplegic, who presented to the emergency room from long term with low O2 saturations and lethargy. He had been in the hospital recently with MRSA bacteremia. He was receiving IV vancomycin via PICC line in the long term. On presentation, he had an atelectatic right lung, which is worsened. Nursing staff has suctioned out some mucus. I did a bronchoscopy this morning, which showed edematous, but fairly clear airways on the right. PAST MEDICAL HISTORY: 1. Quadriplegia. 2. Chronic hypoxic respiratory failure with indwelling trach. 3. Diabetes mellitus, type 2. 4. Neurogenic bladder. 5. Acid reflux. 6. Hypertension. 7. Constipation. PAST SURGICAL HISTORY: 1. Laminectomy. 2. PEG tube placement with subsequent removal. 3. Tracheostomy. 4. Suprapubic catheter. FAMILY MEDICAL HISTORY: Unremarkable. SOCIAL HISTORY: Lives in a long term. Does not smoke. Does not drink alcohol. He does eat orally. REVIEW OF SYSTEMS: Otherwise, negative. PHYSICAL EXAMINATION: VITAL SIGNS: Temperature 99.9, pulse 115, blood pressure 148/91, and O2 saturation in the high 80s. The patient is wearing high-flow nasal cannula. GENERAL: Appears to be in mild respiratory distress. HEENT: Unremarkable. NECK: Indwelling trach clean. LUNGS: Poor air movement, right. Clear breath sounds, left. CARDIAC: S1 and S2. Tachycardic. ABDOMEN: Soft and nontender. EXTREMITIES: No clubbing or cyanosis. He has edema in the legs. LABORATORY DATA: Sodium 136, potassium 4.4, chloride 103, CO2 of 21, BUN 34, creatinine 1.8, and glucose 163. White blood cell count 8.1, hematocrit 30, and platelet count 285. Recent cultures reviewed has grown out numerous gram-negatives and MRSA in the last month. He has had a COVID negative test on 07/31/2020. ASSESSMENT: 1. Right lung pneumonia/mucus plugging/atelectasis. 2. Acute on chronic respiratory failure - now in need of mechanical ventilation. 3. Acute on chronic renal insufficiency. 4. Quadriplegia. 5. Neurogenic bladder. PLAN: 1. Broad-spectrum IV antibiotics. 2. Mechanical ventilation. 3. Add GI prophylaxis. Job ID: [id number]
--- NOTE | 2020-08-21 14:30 | OP ---
DATE OF PROCEDURE: 08/21/2020 PROCEDURE PERFORMED: Bronchoscopy. PREOPERATIVE DIAGNOSIS: Right lung atelectasis. POSTOPERATIVE DIAGNOSIS: Extensive mucosal edema, right lung. ANESTHESIA: Versed 4 mg IV x1. DESCRIPTION OF PROCEDURE: A 2.2 Ambu bronchoscope was placed through the patient's tracheostomy while he was on high-flow oxygen through an adapter. Significant findings included extensive mucosal edema in the right mainstem bronchus, right upper lobe, and right lower lobe. The left mainstem bronchus, left upper lobe, and left lower lobe were clear. Surprisingly, there were few of any mucoid secretions. The patient tolerated the procedure well. Job ID: [id number]
[2020-08-21] MEDS ORDERED: Sodium Chloride 0.9% 1,000 ML IV SCH (14:45)
--- NOTE | 2020-08-21 14:47 | PDOC.BPN ---
- Brief Progress Note Encounter Date: 08/21/20 Encounter Time: 14:30 Patient's BP soft this PM. Fe Urea calculated based on serum and urine studies. Fe Urea = 26.7. This indicates prerenal etiology. Pt appeared dry on exam this AM so will hydrate with fluid bolus and start maintenance IVF.
[2020-08-21] MEDS: Sodium Chloride 0.9% 1,000 ML IV SCH ×2 (14:53→20:16)
[2020-08-21] MEDS: Atorvastatin Calcium 40 MG TAB PO SCH (20:12)
[2020-08-21] MEDS: Amitriptyline HCl 25 MG TAB PO SCH (20:12)
[2020-08-21] MEDS: Insulin Glargine 30 UNITS in Pre-Filled Syringe 1 EACH SC SCH (20:13)
[2020-08-21] MEDS ORDERED: Non-Formulary Item 1 EACH (Levemir Flexpen [Levemir Flexpen] 100 UNITS/ML Pen) SC SCH (21:00)
[2020-08-22] MEDS: Baclofen 10 MG TAB PO SCH ×5 (00:11→23:59)
[2020-08-22] MEDS: methylPREDNISolone Sod Succ 40 MG VIAL IVP SCH ×4 (00:11→17:11)
[2020-08-22] MEDS: Cefepime 2 GM in Sodium Chloride 0.9% 100 ML IVPB SCH ×2 (02:38→13:08)
[2020-08-22] MEDS ORDERED: Vancomycin HCl 1.75 GM in Sodium Chloride 0.9% 500 ML IVPB SCH (03:00)
[2020-08-22 03:23] LABS: #Lymphocytes 0.6 thou/uL (1.20-3.40); #Monocytes 0.3 thou/uL (0.11-0.59); #Neutrophils 5.2 thou/uL (1.40-6.50); %Eosinophils 0.1 % (0.0-10.0); Hemoglobin 7.4 g/dL (14.0-18.0); Mean Corpuscular HGB CONC 31.2 g/dL (32.0-36.0); Mean Corpuscular Hemoglobin 25.7 pg (27.0-31.0); Mean Corpuscular Volume 82.3 fL (78.0-98.0); Mean Platelet Volume 7.7 fL (7.4-10.4); Platelet Count 211 thou/uL (130-400); RBC Distribution Width 14.9 % (11.5-14.5); White Blood Cell (WBC) Count 6.1 thou/uL (4.8-10.8)
[2020-08-22] MEDS: Sodium Chloride 0.9% 1,000 ML IV SCH ×3 (03:25→11:40)
[2020-08-22 03:41] LABS: Anion Gap 17 mmol/L (10-20); BUN (Urea Nitrogen) 42 mg/dL (8.9-20.6); Calc. Creatinine Clearance 65 mL/min (70-130); Calcium 8.4 mg/dL (7.8-10.44); Carbon Dioxide 21 mmol/L (22-29); Chloride 104 mmol/L (98-107); Estimated GFR-MDRD 34; Glucose 239 mg/dL (70-105); Potassium 4.6 mmol/L (3.5-5.1); Sodium 137 mmol/L (136-145)
[2020-08-22] MEDS: HumaLOG 300 UNITS/3 ML VIAL SC PRN ×3 (04:07→16:37)
[2020-08-22] MEDS ORDERED: Morphine 2 MG/ML VIAL SLOW IVP PRN (04:30)
[2020-08-22] MEDS ORDERED: DISCONTINUE PREVIOUS NARCOTIC PAIN MEDICATIONS AND BENZODIAZEPINES FS SCH (04:30)
[2020-08-22] MEDS ORDERED: fentaNYL Citrate/PF 2,000 MCG in Sodium Chloride 0.9% 60 ML IV SCH (04:30)
[2020-08-22] MEDS ORDERED: Propofol BOLUS 1,000 MG/100 ML VIAL IV PRN (04:30)
[2020-08-22] MEDS ORDERED: Fentanyl BOLUS 250 ML IVPB PRN (04:30)
[2020-08-22] MEDS: Lorazepam 2 MG/ML VIAL SLOW IVP PRN ×2 (05:00→15:25)
--- NOTE | 2020-08-22 06:58 | PDOC.FM ---
- Subjective Subjective: Patient with bear hugger on due to low temp this AM. He nods yes when asked if he has history of CHF. Follows commands. - Objective MAR Reviewed: Yes Vital Signs & Weight: Vital Signs (12 hours) Temp Pulse Resp BP Pulse Ox 08/22/20 05:26 16 08/22/20 04:00 96.8 F L 21 H 08/22/20 02:25 65 08/22/20 02:00 26 H 08/22/20 00:00 97.1 F L 16 08/21/20 22:23 67 108/72 08/21/20 22:00 16 08/21/20 20:00 16 99 08/21/20 19:00 96.8 F L Weight Weight 108.6 kg Most Recent Monitor Data Heart Rate from ECG 61 NIBP 118/81 NIBP BP-Mean 93 Respiration from ECG 17 SpO2 97 I&O: 08/20/20 08/21/20 08/22/20 06:59 06:59 06:59 Intake Total 722 3904 Output Total 1482 1535 Balance -760 2369 Result Diagrams: 08/22/20 03:00 08/22/20 03:00 Phys Exam - Physical Examination somewhat diaphoretic unchanged unchanged Gastrointestinal: no distention Dx/Plan - Plan Plan: 50 yo M admitted from [facility] due to worsening breathing, acute respiratory failure and now found to have Covid: Neuro: GCS 11T Encephalopathy, resolved Neurogenic bladder: has suprapubic cath Resp: Sepsis 2/2 PNA Covid positive Acute on chronic hypoxic respiratory failure -pending blood and urine cultures -Abx: vancomycin and cefepime' -Has trach -on steroids CV: Hx of diastolic CHF Hx of HTN - balance fluid overload vs BRIAN Renal/: BRIAN vs BRIAN on CKD -BUN/Cr 37/2.23 - balancing fluid resuscitation vs diastolic CHF Heme/ID: Covid PNA as above Hx of MRSA bacteremia -has PICC line and on vanc -vanc trough 19.2, therapeutic, will continue -echo repeated on 08/20, no sign of endocarditis Endo: DM2 -SSI, glucose checks q4h Code: Full IVF: NS at 100 Lines/Tubes: PICC line, trach, suprapubic catheter, NG tube Diet: NPO, pellet preparation operator consult Dispo: Admit inpatient CCU, LOS > 48hrs
[2020-08-22] MEDS ORDERED: Sodium Chloride 0.9% 1,000 ML IV SCH (06:59)
--- NOTE | 2020-08-22 07:49 | RAD ---
Chest one view HISTORY: Pneumonia. Follow-up. COMPARISON: 08/21/2020. FINDINGS: Cardiac silhouette is magnified by projection and remains shifted leftward slightly. Tracheostomy appliance and left upper extremity PICC are in place. Dense opacity throughout the right hemithorax is slightly less pronounced than on the prior study wit h some clearing of the right lateral costophrenic angle. Patchy infiltrate throughout the left lung is slightly less pronounced. No evidence of pneumothorax. IMPRESSION : Slight interval improvement. Persistent bilateral multifocal pneumonia.
[2020-08-22 07:53] LABS: Actual Bicarbonate (HCO3a) 20.6 mEq/L (22-28); Base Excess (BEa) -4.7 mEq/L (-2.0 to +3.0); CO2 Tension 39.2 mmHg (35.0-45.0); Calcium, Ionized (arterial) 1.15 mmol/L (1.12-1.30); Carboxyhemoglobin (COHb) 0.2 gm% (0.0-3.0); O2 Tension (PaO2), arterial 74.3 mmHg (80.0-100.0); Potassium - ABG Lab 4.45 mmol/L (3.70-5.30); pH, Arterial 7.34 (7.35-7.45)
[2020-08-22 08:15] LABS: Puncture Site LR
[2020-08-22] MEDS: Multivit, Therapeutic 1 TAB PO SCH (08:26)
[2020-08-22] MEDS: Polyethylene Glycol 3350 17 GM Packet PO SCH (08:26)
[2020-08-22] MEDS: Aspirin 81 mg Enteric Coated Tablet PO SCH (08:27)
[2020-08-22] MEDS: tiZANidine HCl 4 MG TAB PO SCH ×4 (08:27→21:48)
[2020-08-22] MEDS: Amlodipine 10 MG TAB PO SCH (08:27)
[2020-08-22] MEDS: Lisinopril 5 MG TAB PO SCH (08:28)
[2020-08-22] MEDS: Saccharomyces boulardii 250 MG CAP PO SCH (08:28)
[2020-08-22] MEDS: Gabapentin 300 MG CAP PO SCH ×4 (08:28→21:48)
[2020-08-22] MEDS: Famotidine/PF 20 mg/2ml Vial SLOW IVP SCH ×2 (08:29→21:48)
[2020-08-22] MEDS: Heparin 5,000 UNITS/ML VIAL SC SCH (08:29)
[2020-08-22] MEDS: Magnesium Oxide 400 MG TAB PO SCH ×2 (08:33→16:14)
[2020-08-22] MEDS: Atenolol 50 MG TAB PO SCH (09:56)
--- NOTE | 2020-08-22 10:02 | RAD ---
Portable frontal chest radiograph: 08/22/2020 COMPARISON: 08/20/2020 and 08/22/2020 HISTORY: Evaluate chest following nasogastric tube placement FINDINGS: Detailed assessment of the chest is limited secondary to body habitus and portable techniqu e. A left upper extremity PICC is noted, distal tip overlying the region of the SVC. Stable tracheostomy tube present. There is obscuration of the right hemidiaphragm with increased density in the right costophrenic angle, evidence of right basilar consolidation/collapse and probable associated right pleural effusion. There is a nasogastric tube which extends into the upper abdomen, not optimally assessed secondary to technical limitations. There is hazy airspace opacity in the mid left lung zone in the medial left lung base, stable. Dense consolidation is seen throughout the majority of the right lung, stable as w ell. Impression: Lines and tubes as detailed above. Nonspecific bilateral airspace disease, right greater than left. Probable right pleural effusion.
--- NOTE | 2020-08-22 14:36 | PDOC.BPN ---
- Brief Progress Note Encounter Date: 08/22/20 Encounter Time: 14:30 Followed up [facility] where patient was prior to coming to hospital. Prior to 08/20, the patient did not have any symptoms such as fever or respiratory symptoms. Apparently he had a Covid swab on 08/18 at the [facility] which was negative per RN. First day of symptoms as best that we can assess occurred on 08/20 when patient became altered, febrile, and hypoxic necessitating his hospitalization. In order to better assess patient's respiratory decline, I have ordered a procalcitonin. We will trend inflammatory markers. If low/negative, will consider discontinuing the cefepime and vancomycin as he has completed his course for MRSA bacteremia from last hospitalization. We also will discuss with the patient starting remdesivir and/or convalescent plasma.
--- NOTE | 2020-08-22 16:13 | PRG ---
DATE OF SERVICE: 08/22/2020 ADDENDUM: This is an addendum to the daily note of Dr. Shanae Rodriges. I have examined the patient and discussed the case with Dr. Rodriges. I agree with her assessment and plan. Job ID: [id number]
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
[2020-08-22] MEDS: Propofol 1,000 MG/100 ML VIAL IV PRN (18:35)
[2020-08-22] MEDS: Amitriptyline HCl 25 MG TAB PO SCH (21:47)
[2020-08-22] MEDS: Atorvastatin Calcium 40 MG TAB PO SCH (21:47)
[2020-08-22] MEDS: Enoxaparin Sodium 100 MG/ML SYRINGE SC SCH (21:47)
[2020-08-22] MEDS: Insulin Glargine 30 UNITS in Pre-Filled Syringe 1 EACH SC SCH (21:48)
[2020-08-23] MEDS: Cefepime 2 GM in Sodium Chloride 0.9% 100 ML IVPB SCH ×2 (01:52→13:29)
[2020-08-23 02:15] LABS: #Lymphocytes 0.3 thou/uL (1.20-3.40); #Monocytes 0.4 thou/uL (0.11-0.59); #Neutrophils 6.4 thou/uL (1.40-6.50); %Eosinophils 0.1 % (0.0-10.0); %Lymphocytes 4.2 % (21.0-51.0); %Monocytes 6.1 % (0.0-10.0); %Neutrophils 89.7 % (42.0-75.0); Hemoglobin 7.8 g/dL (14.0-18.0); Mean Corpuscular HGB CONC 31.1 g/dL (32.0-36.0); Mean Corpuscular Hemoglobin 25.2 pg (27.0-31.0); Mean Corpuscular Volume 80.9 fL (78.0-98.0); Mean Platelet Volume 7.9 fL (7.4-10.4); Platelet Count 228 thou/uL (130-400); RBC Distribution Width 14.7 % (11.5-14.5); White Blood Cell (WBC) Count 7.1 thou/uL (4.8-10.8)
[2020-08-23 02:24] LABS: INR-International Normal Ratio 1.3; Prothrombin Time 16.4 sec (12.0-14.7)
[2020-08-23 02:25] LABS: PTT 70.7 sec (22.9-36.1)
[2020-08-23 02:26] LABS: D-Dimer Test 2.9 *mcg/mL (0.27-0.43)
[2020-08-23 03:00] LABS: Anion Gap 17 mmol/L (10-20); BUN (Urea Nitrogen) 38 mg/dL (8.9-20.6); Calc. Creatinine Clearance 80 mL/min (70-130); Calcium 8.7 mg/dL (7.8-10.44); Carbon Dioxide 21 mmol/L (22-29); Chloride 105 mmol/L (98-107); Estimated GFR-MDRD 42; Glucose 235 mg/dL (70-105); Potassium 3.9 mmol/L (3.5-5.1); Sodium 139 mmol/L (136-145)
[2020-08-23] MEDS: Baclofen 10 MG TAB PO SCH ×4 (05:39→23:47)
[2020-08-23] MEDS: methylPREDNISolone Sod Succ 40 MG VIAL IVP SCH ×5 (05:39→23:47)
[2020-08-23] MEDS: HumaLOG 300 UNITS/3 ML VIAL SC PRN ×3 (06:03→15:50)
[2020-08-23] MEDS: Propofol 1,000 MG/100 ML VIAL IV PRN ×3 (06:03→19:11)
[2020-08-23] MEDS: Polyethylene Glycol 3350 17 GM Packet PO SCH (07:49)
[2020-08-23] MEDS: Lisinopril 5 MG TAB PO SCH (07:49)
[2020-08-23 07:50] LABS: Actual Bicarbonate (HCO3a) 18.1 mEq/L (22-28); Base Excess (BEa) -6.9 mEq/L (-2.0 to +3.0); CO2 Tension 34.2 mmHg (35.0-45.0); Calcium, Ionized (arterial) 1.19 mmol/L (1.12-1.30); Carboxyhemoglobin (COHb) 0.4 gm% (0.0-3.0); Hemoglobin (Hb) 8.9 g/dL (14.0-18.0); O2 Tension (PaO2), arterial 71.2 mmHg (80.0-100.0); Potassium - ABG Lab 3.66 mmol/L (3.70-5.30); pH, Arterial 7.34 (7.35-7.45)
[2020-08-23] MEDS: Lorazepam 2 MG/ML VIAL SLOW IVP PRN ×2 (07:50→19:11)
[2020-08-23] MEDS: Gabapentin 300 MG CAP PO SCH ×4 (07:50→20:24)
[2020-08-23] MEDS: Atenolol 50 MG TAB PO SCH (07:50)
[2020-08-23] MEDS: tiZANidine HCl 4 MG TAB PO SCH ×4 (07:51→20:24)
[2020-08-23] MEDS: Magnesium Oxide 400 MG TAB PO SCH ×2 (07:51→17:26)
[2020-08-23] MEDS: Multivit, Therapeutic 1 TAB PO SCH (07:51)
[2020-08-23] MEDS: Saccharomyces boulardii 250 MG CAP PO SCH (07:51)
[2020-08-23] MEDS: Aspirin 81 mg Enteric Coated Tablet PO SCH (07:51)
[2020-08-23] MEDS: Amlodipine 10 MG TAB PO SCH (07:51)
[2020-08-23 07:52] LABS: Puncture Site LR
[2020-08-23] MEDS: Famotidine/PF 20 mg/2ml Vial SLOW IVP SCH ×2 (07:52→20:24)
--- NOTE | 2020-08-23 09:00 | RAD ---
PORTABLE CHEST: HISTORY: Followup pneumonia. CCU followup. FINDINGS: Tracheostomy device, central line, and NG tube are unchanged. Diffuse alveolar infiltrate throughout the right lung again noted with elevated right hemidiaphragm a nd evidence of right effusion. Hazy infiltrate in the left perihilar region again noted. IMPRESSION: Not significantly changed from yesterday. POS: AGW
--- NOTE | 2020-08-23 10:05 | PDOC.FM ---
- Subjective Subjective: Patient on propofol 20 this morning and resting. Apparently he was restless and agitated when RT was suctioning out increased, thick mucous secretions. Patient does not wake up for me today due to his sedation. - Objective MAR Reviewed: Yes Vital Signs & Weight: Vital Signs (12 hours) Temp Pulse Resp BP Pulse Ox 08/23/20 08:00 100.2 F H 30 H 08/23/20 07:51 104 H 144/95 H 08/23/20 07:50 105 H 144/95 H 08/23/20 07:49 105 H 144/95 H 08/23/20 07:21 110 H 146/91 H 92 L 08/23/20 07:20 111 H 28 H 92 L 08/23/20 06:00 18 08/23/20 04:00 98.7 F 18 08/23/20 02:30 89 141/90 H 08/23/20 02:00 97.4 F L Weight Admit Weight 108.409 kg Weight 109.1 kg Most Recent Monitor Data Heart Rate from ECG 99 NIBP 137/91 NIBP BP-Mean 106 Respiration from ECG 24 SpO2 89 I&O: 08/22/20 08/23/20 08/24/20 06:59 06:59 06:59 Intake Total 3904 3127.1 60 Output Total 1535 4250 1000 Balance 2369 -1122.9 -940 Result Diagrams: 08/23/20 02:10 08/23/20 02:10 Phys Exam - Physical Examination Constitutional: NAD HEENT: moist MMs Respiratory: no wheezing (mild coarse sounds bilaterally, improved at lung bas es) Cardiovascular: RRR, no significant murmur Gastrointestinal: soft, no distention Musculoskeletal: no edema, pulses present (wearing boots to prevent pressure ulcers) Dx/Plan - Plan Plan: 50 yo M admitted from intermediate due to worsening breathing, acute respiratory failure and now found to have Covid: Neuro: GCS: unable to assess due to sedation. Encephalopathy, resolved Neurogenic bladder: has suprapubic cath - wean propofol as able. Resp: Sepsis 2/2 PNA Covid pneumonia with possible superimposed bacterial pneumonia Acute on chronic hypoxic respiratory failure - Pulm consulted, appreciate recs. - primary sputum culture growing rare mold species and normal respiratory jackie - With change in secretions and elevated procalcitonin, repeat sputum culture. - blood cultures: no growth to date. - Procalcitonin elevated, continue Abx of vancomycin and cefepime. - Has trach - on steroids Right Pleural effusion - continue to monitor on daily CXR. If not improving, we may consider thoracen tesis/further mgmt per Pulmonology. CV: Hx of diastolic CHF Hx of HTN - balance fluid overload vs BRIAN Renal/: BRIAN vs BRIAN on CKD Presumptive pseudomonas UTI Neurogenic bladder - Urine culture showing presumptive pseudomonas >100K cfu. Continue cefepime until sensitivities result. - We may need to consider urology consult and replacement of suprapubic catheter. - balancing fluid resuscitation vs diastolic CHF - continue half-maintenance rate of fluids Heme/ID: Covid PNA as above Hx of MRSA bacteremia -has PICC line and on vanc Hx of Iron deficiency anemia - low hemoglobin yesterday, improved today - normocytic (low normal, previously treated w/ iron), but labs on previous hospitalization showed iron deficiency. Did not repeat anemia workup labs. - Start iron PO once daily to help w/ hemoglobin - Colace SHA to prevent constipation from iron treatment Endo: DM2 -SSI, glucose checks q4h Code: Full IVF: NS at 75 mL/hr VTE: therapeutic lovenox, renally dosed. GI ppx: famotidine BID Lines/Tubes: PICC line, trach, suprapubic catheter, NG tube Diet: Tube Feeds Dispo: Admit inpatient CCU, LOS > 48hrs
--- NOTE | 2020-08-23 11:22 | PRG ---
DATE OF SERVICE: 08/23/2020 Mr. Stinson was a bit restless during night and received some propofol. He is currently on treatment for COVID and pneumonia. This is likely a COVID pneumonia with possible superimposed bacterial pneumonia. The picture is greatly complicated by the fact that Mr. Stinson is a quadriplegic and has numerous medical comorbidities. We will continue to follow with the intensive care service. Job ID: [id number]
[2020-08-23] MEDS: Docusate 100 MG CAP PO SCH ×2 (11:32→20:24)
[2020-08-23] MEDS: Sodium Chloride 0.9% 1,000 ML IV SCH ×2 (11:34→23:48)
[2020-08-23] MEDS ORDERED: Ferrous Sulfate 325 MG TAB PO SCH (11:45)
[2020-08-23] MEDS: Ferrous Sulfate 325 MG TAB PO SCH (12:05)
[2020-08-23 16:16] LABS: Vancomycin, Random 22.9 ug/mL (See Comment)
--- NOTE | 2020-08-23 16:54 | PRG ---
DATE OF SERVICE: 08/23/2020 SUBJECTIVE: Mr. Stinson is clinically unchanged. Remains mechanically ventilated and sedated. OBJECTIVE: VITAL SIGNS: He is afebrile. Respiratory rates in the 20s, heart rate in the 60s, blood pressure 137/92. He has gone up on his PEEP and his FiO2 today. LUNGS: Unchanged. HEART: Unchanged. ABDOMEN: Unchanged. LABORATORY DATA: White count 7.1, hemoglobin 7.8, and platelets 228. Sodium 139, potassium 3.9, chloride 105, bicarb 21, BUN 38, and creatinine 1.72. Blood gas; 7.34, CO2 of 34, pO2 of 71. Chest x-ray still shows dense right lung alveolar infiltrate. IMPRESSION: 1. Bacterial pneumonia. 2. COVID positive, possibly an incidental finding. Lobar pneumonia is nontypical presentation for COVID, so I suspect he has a bacterial pathogen, and the COVID is an incidental part of his illness. He may have better gas exchange if he is leaning to the left since his left lung is actually fairly normal on radiograph. We will continue with steroids, anticoagulation, antimicrobial therapy, mechanical ventilation. We would anticipate he will be in the hospital for quite some time. Job ID: [id number]
[2020-08-23] MEDS ORDERED: Bacteriostatic Normal Saline 30 ML VIAL ONE ×2 (20:20→23:44)
[2020-08-23] MEDS: Amitriptyline HCl 25 MG TAB PO SCH (20:23)
[2020-08-23] MEDS: Atorvastatin Calcium 40 MG TAB PO SCH (20:24)
[2020-08-23] MEDS: Insulin Glargine 30 UNITS in Pre-Filled Syringe 1 EACH SC SCH (20:24)
[2020-08-23] MEDS: Enoxaparin Sodium 100 MG/ML SYRINGE SC SCH (20:24)
[2020-08-23] MEDS: Vecuronium 10 MG VIAL IV PRN ×2 (20:24→23:47)
[2020-08-24] MEDS: Cefepime 2 GM in Sodium Chloride 0.9% 100 ML IVPB SCH ×2 (02:12→13:15)
[2020-08-24] MEDS: Vancomycin 1 GM in Premix Bag 1 BAG IVPB SCH (03:27)
[2020-08-24 04:17] LABS: #Lymphocytes 0.4 thou/uL (1.20-3.40); #Monocytes 0.3 thou/uL (0.11-0.59); #Neutrophils 5.3 thou/uL (1.40-6.50); %Eosinophils 0.1 % (0.0-10.0); %Lymphocytes 6.8 % (21.0-51.0); %Monocytes 4.3 % (0.0-10.0); %Neutrophils 88.8 % (42.0-75.0); Mean Corpuscular HGB CONC 31.1 g/dL (32.0-36.0); Mean Corpuscular Hemoglobin 25.3 pg (27.0-31.0); Mean Corpuscular Volume 81.2 fL (78.0-98.0); Mean Platelet Volume 8.4 fL (7.4-10.4); Platelet Count 245 thou/uL (130-400); RBC Distribution Width 14.9 % (11.5-14.5); Red Blood Cell (RBC) Count 3.15 mill/uL (4.70-6.10)
[2020-08-24 04:23] LABS: INR-International Normal Ratio 1.2
[2020-08-24 04:24] LABS: PTT 54.9 sec (22.9-36.1)
[2020-08-24 04:25] LABS: D-Dimer Test 3.32 *mcg/mL (0.27-0.43)
[2020-08-24] MEDS ORDERED: Bacteriostatic Normal Saline 30 ML VIAL ONE (04:32)
[2020-08-24] MEDS: Propofol 1,000 MG/100 ML VIAL IV PRN ×4 (04:34→20:00)
[2020-08-24] MEDS: Vecuronium 10 MG VIAL IV PRN ×3 (04:34→11:55)
[2020-08-24 04:37] LABS: Anion Gap 15 mmol/L (10-20); BUN (Urea Nitrogen) 31 mg/dL (8.9-20.6); Calc. Creatinine Clearance 91 mL/min (70-130); Calcium 8.8 mg/dL (7.8-10.44); Carbon Dioxide 25 mmol/L (22-29); Chloride 106 mmol/L (98-107); Estimated GFR-MDRD 49; Glucose 249 mg/dL (70-105); Potassium 3.5 mmol/L (3.5-5.1); Sodium 142 mmol/L (136-145)
--- NOTE | 2020-08-24 06:57 | PDOC.FM ---
- Subjective Subjective: Mr. Stinson is about the same today. Remains on the ventilator w/ sedation of propofol at 30. - Objective MAR Reviewed: Yes Vital Signs & Weight: Vital Signs (12 hours) Temp Pulse Resp Pulse Ox 08/24/20 04:00 99.2 F 08/24/20 02:06 75 08/23/20 22:00 16 08/23/20 21:57 86 08/23/20 20:00 32 H 08/23/20 19:30 89 L 08/23/20 19:00 99.1 F Weight Admit Weight 108.409 kg Weight 107 kg Most Recent Monitor Data Heart Rate from ECG 79 NIBP 123/80 NIBP BP-Mean 94 Respiration from ECG 16 SpO2 97 I&O: 08/22/20 08/23/20 08/24/20 06:59 06:59 06:59 Intake Total 3904 3127.1 2804 Output Total 1535 4250 4775 Balance 2369 -1122.9 -1971 Result Diagrams: 08/24/20 03:30 08/24/20 03:30 Phys Exam - Physical Examination Constitutional: NAD Respiratory: no wheezing (coarse rhonchi bilaterally) Cardiovascular: RRR, no significant murmur Gastrointestinal: soft, no distention Musculoskeletal: no edema Dx/Plan - Plan Plan: 50 yo M admitted from [facility] due to worsening breathing, acute respiratory failure and now found to have Covid: Neuro: GCS: unable to assess due to sedation. Encephalopathy, resolved Neurogenic bladder: has suprapubic cath - wean propofol as able. Resp: Sepsis 2/2 PNA Covid pneumonia (incidental) with superimposed bacterial pneumonia Acute on chronic hypoxic respiratory failure - Pulm consulted, appreciate recs. - sputum culture pending - Has trach - on steroids Right Pleural effusion - resolved CV: Hx of diastolic CHF Hx of HTN - balance fluid overload vs BRIAN Renal/: BRIAN vs BRIAN on CKD, improving Presumptive pseudomonas UTI in setting of suprapubic cath Neurogenic bladder - Urine culture showing presumptive pseudomonas >100K cfu. Continue cefepime until sensitivities result. - We may need to consider urology consult and replacement of suprapubic catheter. However, review of past infections shows patient has had off and on pseudomonal and klebsiella UTIs which have not always been symptomatic. Heme/ID: Covid PNA as above Hx of MRSA bacteremia Hx of Iron deficiency anemia - iron PO once daily - Colace SHA to prevent constipation from iron treatment Endo: DM2 -SSI, glucose checks q4h Code: Full IVF: NS at 75 mL/hr VTE: therapeutic lovenox, renally dosed. Will switch to full dosing now that creatinine & GFR are improved. GI ppx: famotidine BID Lines/Tubes: PICC line, trach, suprapubic catheter, NG tube Diet: Tube Feeds Dispo: Admit inpatient CCU, LOS > 48hrs
[2020-08-24] MEDS: Scopolamine 1.5 mg/72 hour Patch TD SCH (07:14)
[2020-08-24] MEDS: Ferrous Sulfate 325 MG TAB PO SCH (07:15)
[2020-08-24] MEDS: Magnesium Oxide 400 MG TAB PO SCH ×2 (07:15→17:19)
[2020-08-24] MEDS: Baclofen 10 MG TAB PO SCH ×3 (07:15→17:41)
[2020-08-24] MEDS: methylPREDNISolone Sod Succ 40 MG VIAL IVP SCH ×3 (07:16→17:41)
[2020-08-24 07:44] LABS: Actual Bicarbonate (HCO3a) 27.2 mEq/L (22-28); Base Excess (BEa) 0.8 mEq/L (-2.0 to +3.0); Carboxyhemoglobin (COHb) 0.1 gm% (0.0-3.0); Hemoglobin (Hb) 9.1 g/dL (14.0-18.0); Potassium - ABG Lab 3.52 mmol/L (3.70-5.30); pH, Arterial 7.33 (7.35-7.45)
[2020-08-24 08:13] LABS: Puncture Site L.R.
[2020-08-24] MEDS: Gabapentin 300 MG CAP PO SCH ×4 (08:57→20:05)
[2020-08-24] MEDS: Multivit, Therapeutic 1 TAB PO SCH (08:57)
[2020-08-24] MEDS: Famotidine/PF 20 mg/2ml Vial SLOW IVP SCH ×2 (08:57→20:02)
[2020-08-24] MEDS: Docusate 100 MG CAP PO SCH ×2 (08:58→20:05)
[2020-08-24] MEDS: Atenolol 50 MG TAB PO SCH (08:58)
[2020-08-24] MEDS: Saccharomyces boulardii 250 MG CAP PO SCH (08:58)
[2020-08-24] MEDS: Amlodipine 10 MG TAB PO SCH (08:58)
[2020-08-24] MEDS: tiZANidine HCl 4 MG TAB PO SCH ×4 (08:58→20:01)
[2020-08-24] MEDS: Lisinopril 5 MG TAB PO SCH (08:59)
[2020-08-24] MEDS: Aspirin 81 mg Enteric Coated Tablet PO SCH (08:59)
[2020-08-24] MEDS: Enoxaparin Sodium 100 MG/ML SYRINGE SC SCH ×2 (08:59→20:01)
[2020-08-24] MEDS: Polyethylene Glycol 3350 17 GM Packet PO SCH (09:00)
--- NOTE | 2020-08-24 09:22 | RAD ---
PORTABLE CHEST: HISTORY: Followup pneumonia. COMPARISON: 08/23/2020 exam. FINDINGS: Heart size within normal limits. Infiltrative-appearing lung changes are similar to the previous exa m given the differences in technique. IMPRESSION: Essentially stable study. POS: ALEKSANDAR
[2020-08-24] MEDS: HumaLOG 300 UNITS/3 ML VIAL SC PRN ×2 (09:35→22:20)
--- NOTE | 2020-08-24 11:11 | PQF ---
CLINICAL DOCUMENTATION CLARIFICATION FORM: Dear Dr. Keila Rodriges Date: 08-24-20 Please exercise your independent, professional judgment in responding to the clarification form. Clinical indicators are provided on the bottom of this form for your review. Please check appropriate box(es): [x] Encephalopathy: Type: [x] Acute [ ] Subacute [ ] Chronic Etiology: [ ] Metabolic [ ] Toxic [ ] Hypoxic [x] Septic [ ] Other (please specify) [ ] Transient Alteration of Awareness [ ] Other diagnosis [ ] Unable to determine In addition, please specify: Present on Admission (POA): [x] Yes [ ] No [ ] Unable to determine For continuity of documentation, please document condition throughout progress notes and discharge summary. Thank You. To be completed by CDI/Coding staff for physician review: CLINICAL INDICATORS - SIGNS / SYMPTOMS / LABS / RESULTS AND LOCATION IN EMR: H&P 08-21-20: FROM NH WITH FEVER AND AMS, LETHARGIC AND DIFFICULT TO AROUSE, ENCEPHALOPATHY LIKELY DUE TO SEPSIS, WILL CONTINUE TO MONITOR PN DR. KEILA RODRIGES 08-24-20: ENCEPHALOPATHY RESOLVED, SEPSIS 2/2 PNA, ACUTE ON CHRONIC RESPIRATORY FAILURE, COVID, BRIAN RISK FACTORS / RESULTS AND LOCATION IN EMR: PN DR. KEILA RODRIGES 08-24-20: ENCEPHALOPATHY RESOLVED, SEPSIS 2/2 PNA, ACUTE ON CHRONIC RESPIRATORY FAILURE, COVID, BRIAN TREATMENTS / RESULTS AND LOCATION IN EMR: H&P 08-21-20: FROM NH WITH FEVER AND AMS, LETHARGIC AND DIFFICULT TO AROUSE, ENCEPHALOPATHY LIKELY DUE TO SEPSIS, WILL CONTINUE TO MONITOR MAR: 08-21-20: MAXIPIME IV, IVF NS, VANCOMYCIN IV, CDS Signature: Varsha Mendieta Phone #: [phone] Date/Time: 08-24-20 This is a permanent part of the Medical Record [facility]
--- NOTE | 2020-08-24 11:35 | PRG ---
DATE OF SERVICE: 08/24/2020 ADDENDUM: This is an addendum to the note of Dr. Shanae Rodriges. I have examined Mr. Stinson and agree with the assessment and plan of Dr. Rodriges. Job ID: [id number]
[2020-08-24] MEDS: Sodium Chloride 0.9% 1,000 ML IV SCH (13:15)
--- NOTE | 2020-08-24 13:51 | PDOC.BPN ---
- Brief Progress Note Encounter Date: 08/24/20 Encounter Time: 13:45 Curbside call to urologist resolution agent regarding suprapubic catheter in setting of Pseudomonas growing >100 cfu in urine. Uro recommended changing the suprapubic cath. Informed me this could easily be done by myself and RN. RN Francesco and I at bedside utilizing Covid airborne/contact precautions. Sterile saline flushed into current 16 spanish Kcoh until urine ran clear (approx 150 mL). Sterile technique observed; abdominal site prepped around suprapubic catheter w/ betadine. Koch balloon then deflated and catheter removed. Placed sterile-gloved finger over suprapubic hole to prevent saline leakage. New 16 spanish Koch lubricated and inserted into bladder; clear fluid seen on return. Koch bulb inflated. Drain gauze placed around koch and secured w/ tape. Pseudomonas culture of urine resulted as intermediate sensitivity to cefepime, which we have been giving the patient for pneumonia coverage. Will discuss this result w/ attending and adjust antibiotics regimen if indicated.
[2020-08-24] MEDS: Insulin Glargine 30 UNITS in Pre-Filled Syringe 1 EACH SC SCH (20:01)
[2020-08-24] MEDS: Amitriptyline HCl 25 MG TAB PO SCH (20:04)
[2020-08-24] MEDS: Atorvastatin Calcium 40 MG TAB PO SCH (20:05)
--- NOTE | 2020-08-24 22:17 | PRG ---
DATE OF SERVICE: 08/24/2020 SUBJECTIVE: Kwan Stinson is unstable. His suprapubic catheter is changed out by the residents today. OBJECTIVE: VITAL SIGNS: Blood pressure 133/85, heart rate 50, respiratory rate is in the teens, oximetry is 100% and is mechanically ventilated. LUNGS: Unchanged. HEART: Unchanged. ABDOMEN: Unchanged. LABORATORY DATA: White count 6.9, hemoglobin 8. platelets 245. Electrolytes are normal. BUN 31, creatinine 1.51. Glucose is elevated at today. Blood gas; pH 7.33, CO2 of 53, pO2 of 67, FiO2 is down to 65 IMPRESSION: 1. Bacterial pneumonia. 2. Incidental COVID. 3. Quadriplegia due to chronic indwelling trach and suprapubic catheter secondary to quadriplegia. PLAN: Continue supportive care. He will wean extremely slowly in my opinion. Job ID: [id number]
[2020-08-25] MEDS: Baclofen 10 MG TAB PO SCH ×5 (00:56→23:47)
[2020-08-25] MEDS: methylPREDNISolone Sod Succ 40 MG VIAL IVP SCH ×5 (00:56→23:25)
[2020-08-25] MEDS: Cefepime 2 GM in Sodium Chloride 0.9% 100 ML IVPB SCH ×2 (01:32→14:15)
[2020-08-25] MEDS: Sodium Chloride 0.9% 1,000 ML IV SCH ×2 (03:11→17:31)
[2020-08-25] MEDS: Vancomycin 1 GM in Premix Bag 1 BAG IVPB SCH (03:11)
[2020-08-25] MEDS: Lorazepam 2 MG/ML VIAL SLOW IVP PRN ×3 (03:12→19:44)
[2020-08-25 03:44] LABS: #Lymphocytes 0.4 thou/uL (1.20-3.40); #Monocytes 0.4 thou/uL (0.11-0.59); #Neutrophils 5.1 thou/uL (1.40-6.50); %Eosinophils 0.1 % (0.0-10.0); %Lymphocytes 6.3 % (21.0-51.0); %Monocytes 6.4 % (0.0-10.0); %Neutrophils 87.2 % (42.0-75.0); Hemoglobin 9.4 g/dL (14.0-18.0); Mean Corpuscular HGB CONC 31.6 g/dL (32.0-36.0); Mean Corpuscular Hemoglobin 25.6 pg (27.0-31.0); Mean Corpuscular Volume 81.1 fL (78.0-98.0); Mean Platelet Volume 8.7 fL (7.4-10.4); Platelet Count 270 thou/uL (130-400); RBC Distribution Width 14.8 % (11.5-14.5); Red Blood Cell (RBC) Count 3.68 mill/uL (4.70-6.10); White Blood Cell (WBC) Count 5.9 thou/uL (4.8-10.8)
[2020-08-25 03:59] LABS: Anion Gap 16 mmol/L (10-20); BUN (Urea Nitrogen) 32 mg/dL (8.9-20.6); Calc. Creatinine Clearance 102 mL/min (70-130); Calcium 9.3 mg/dL (7.8-10.44); Carbon Dioxide 26 mmol/L (22-29); Chloride 102 mmol/L (98-107); Estimated GFR-MDRD 57; Glucose 318 mg/dL (70-105); PTT 51.2 sec (22.9-36.1); Sodium 141 mmol/L (136-145)
[2020-08-25 04:00] LABS: D-Dimer Test 3.52 *mcg/mL (0.27-0.43); INR-International Normal Ratio 1.1; Prothrombin Time 14.3 sec (12.0-14.7)
[2020-08-25] MEDS: Vecuronium 10 MG VIAL IV PRN ×4 (04:34→23:25)
[2020-08-25] MEDS: HumaLOG 300 UNITS/3 ML VIAL SC PRN ×4 (04:34→21:53)
--- NOTE | 2020-08-25 07:43 | PRG ---
DATE OF SERVICE: 08/25/2020 SUBJECTIVE: Mr. Stinson is clinically unchanged. OBJECTIVE: VITAL SIGNS: Respiratory rate is in the teens, heart rate is in the 80s, FiO2 is at 65%, blood pressure this morning is 143/88. LUNGS: Unchanged. HEART: Unchanged. ABDOMEN: Unchanged. LABORATORY DATA: White count 5.9, hemoglobin 9.4, platelets 270. Sodium 141, potassium 3, chloride 102, bicarb 26, BUN 32, creatinine 1.33. IMAGING STUDIES: Chest x-ray today shows diffuse infiltrates. His admitting film was remarkable for predominantly a right-sided infiltrate making me believe that he had a bacterial pneumonia and COVID was a copathogen. He has developed an increased need for PEEP, so he probably has both processes going on. It does not help it. He is chronically quadriplegic with an indwelling tracheostomy, suprapubic catheter, and a PEG. His progress will be undoubtedly quite slow. ventilator change today. We will continue current PEEP settings. Job ID: [id number]
[2020-08-25] MEDS: Enoxaparin Sodium 100 MG/ML SYRINGE SC SCH ×2 (08:02→19:43)
[2020-08-25] MEDS: Atenolol 50 MG TAB PO SCH (08:03)
[2020-08-25] MEDS: Famotidine/PF 20 mg/2ml Vial SLOW IVP SCH ×2 (08:03→19:43)
[2020-08-25] MEDS: tiZANidine HCl 4 MG TAB PO SCH ×4 (08:03→19:44)
[2020-08-25] MEDS: Gabapentin 300 MG CAP PO SCH ×4 (08:04→19:44)
[2020-08-25] MEDS: Amlodipine 10 MG TAB PO SCH (08:04)
[2020-08-25] MEDS: Docusate 100 MG CAP PO SCH ×2 (08:04→19:43)
[2020-08-25] MEDS: Multivit, Therapeutic 1 TAB PO SCH (08:04)
[2020-08-25] MEDS: Lisinopril 5 MG TAB PO SCH (08:04)
[2020-08-25] MEDS: Saccharomyces boulardii 250 MG CAP PO SCH (08:05)
[2020-08-25] MEDS: Magnesium Oxide 400 MG TAB PO SCH ×2 (08:05→17:20)
[2020-08-25] MEDS: Polyethylene Glycol 3350 17 GM Packet PO SCH (08:05)
[2020-08-25] MEDS: Ferrous Sulfate 325 MG TAB PO SCH (08:05)
[2020-08-25] MEDS: Aspirin 81 mg Enteric Coated Tablet PO SCH (08:05)
[2020-08-25] MEDS: Propofol 1,000 MG/100 ML VIAL IV PRN ×2 (08:12→14:16)
--- NOTE | 2020-08-25 08:25 | RAD ---
EXAM: CHEST ONE VIEW HISTORY: Covid positive. Pleural effusion, secretions. COMPARISON: 08/24/2020 FINDINGS: Tracheostomy device, left-sided vascular catheter, and nasogastric tube remain in place and unchanged in position. Cardiac silhouettes within normal limits. There are increased patchy airspace opacities bilaterally much greater on the left. There does appear to be mild improvement in aeration within the right upper and midlung zone compared to prior study. There is also mild increase in lung volumes compared to prior exam. Mild elevation right hemidiaphragm is present. Left lateral cost ophrenic angle is excluded from view. Pleural fluid on the lateral view is a possibility. No other interval change. IMPRESSION: Improving in aeration in the right mid and upper lung zone with persistent patchy airspace opacities bilaterally greater on the left. There is suggestion of a left pleural effusion.
--- NOTE | 2020-08-25 09:52 | PDOC.FM ---
- Subjective Subjective: Clinically unchanged. Still sedated. Per RN, pt very dysynchronous on the vent. Suprapubic cath changed yesterday. - Objective MAR Reviewed: Yes Vital Signs & Weight: Vital Signs (12 hours) Temp Pulse Resp BP Pulse Ox 08/25/20 08:04 82 169/104 H 08/25/20 08:03 81 169/104 H 08/25/20 08:00 99.1 F 14 08/25/20 07:38 100 08/25/20 07:19 77 165/101 H 08/25/20 07:18 77 14 98 08/25/20 06:00 16 08/25/20 04:00 97.6 F 16 08/25/20 02:33 52 L 16 100 08/25/20 02:00 16 08/25/20 00:47 62 140/90 08/25/20 00:00 97.5 F L 16 08/24/20 22:06 65 134/86 100 08/24/20 22:02 52 L 16 100 08/24/20 22:00 16 Weight Admit Weight 108.409 kg Weight 106.9 kg Most Recent Monitor Data Heart Rate from ECG 70 NIBP 110/82 NIBP BP-Mean 91 Respiration from ECG 20 SpO2 96 I&O: 08/24/20 08/25/20 08/26/20 06:59 06:59 06:59 Intake Total 2804 3621 100 Output Total 4775 6055 1125 [facility] -2434 -1025 Result Diagrams: 08/25/20 03:15 08/25/20 03:15 Phys Exam - Physical Examination Constitutional: NAD HEENT: PERRLA Respiratory: no wheezing (wet crackles over RLL, improved lung sounds on L) Cardiovascular: RRR, no significant murmur Gastrointestinal: soft, no distention Musculoskeletal: no edema, pulses present Skin: no rash Dx/Plan - Plan Plan: 50 yo M admitted from skilled nursing due to worsening breathing, acute respiratory failure and now found to have Covid: Neuro: GCS: unable to assess due to sedation. Encephalopathy, resolved Neurogenic bladder: has suprapubic cath - wean propofol as able. Resp: Sepsis 2/2 PNA Covid pneumonia with superimposed bacterial pneumonia Acute on chronic hypoxic respiratory failure - Pulm consulted, appreciate recs. - sputum culture with no growth; low utility as has been on abx for some time now. - Has trach - on steroids - continue cefepime and vancomycin for total of 7 days. This will likely have c overed him and treated him for the bacterial infection. CV: Hx of diastolic CHF Hx of HTN - balance fluid overload vs BRIAN Renal/: BRIAN vs BRIAN on CKD, improving Presumptive pseudomonas UTI in setting of suprapubic cath Neurogenic bladder - Urine culture showing presumptive pseudomonas >100K cfu. Cefepime shows intermediate resistance. Unsure how much UTI contributed to his symptoms. - Consider reculture of urine since we have changed suprapubic cath. If pseudomonas persists, we may start a broad antibiotic. Heme/ID: Covid PNA as above Hx of MRSA bacteremia Hx of Iron deficiency anemia - iron PO once daily - Colace SHA to prevent constipation from iron treatment Endo: DM2 -SSI, glucose checks q4h Code: Full IVF: NS at 75 mL/hr VTE: therapeutic lovenox. GI ppx: famotidine BID Lines/Tubes: PICC line, trach, suprapubic catheter, NG tube Diet: Tube Feeds Dispo: Admit inpatient CCU, LOS > 48hrs
[2020-08-25] MEDS ORDERED: Potassium Chloride 40 MEQ in Premix Bag 1 BAG IVPB SCH (10:00)
[2020-08-25] MEDS ORDERED: Dextrose 5% in Water 1,000 ML IV PRN (11:45)
--- NOTE | 2020-08-25 12:02 | PRG ---
DATE OF SERVICE: 08/25/2020 Mr. Stinson remains on ventilatory support and broad-spectrum antibiotics for his bacterial pneumonia and COVID condition. Mr. Stinson's suprapubic catheter. He will complete the 7 days of IV pneumonia therapy on Friday and can likely DC after that time, but we would discuss also with the Pulmonary Service. Job ID: [id number]
[2020-08-25] MEDS: HumaLOG 300 UNITS/3 ML VIAL SC SCH ×3 (12:15→23:25)
[2020-08-25] MEDS: Atorvastatin Calcium 40 MG TAB PO SCH (19:43)
[2020-08-25] MEDS: Amitriptyline HCl 25 MG TAB PO SCH (19:43)
[2020-08-25] MEDS: Insulin Glargine 30 UNITS in Pre-Filled Syringe 1 EACH SC SCH (19:44)
[2020-08-26] MEDS: Propofol 1,000 MG/100 ML VIAL IV PRN ×4 (01:21→23:20)
[2020-08-26] MEDS: Cefepime 2 GM in Sodium Chloride 0.9% 100 ML IVPB SCH ×2 (01:21→13:02)
[2020-08-26] MEDS: Vancomycin 1 GM in Premix Bag 1 BAG IVPB SCH (03:23)
[2020-08-26] MEDS: Vecuronium 10 MG VIAL IV PRN (03:23)
[2020-08-26 04:50] LABS: INR-International Normal Ratio 1.2; Prothrombin Time 15.8 sec (12.0-14.7)
[2020-08-26 04:51] LABS: PTT 51.2 sec (22.9-36.1)
[2020-08-26 04:58] LABS: D-Dimer Test 3.66 *mcg/mL (0.27-0.43)
--- NOTE | 2020-08-26 04:59 | PDOC.FM ---
- Subjective Subjective: Per nursing, pt did fair overnight. He is still sedated. - Objective MAR Reviewed: Yes Vital Signs & Weight: Vital Signs (12 hours) Pulse Resp BP Pulse Ox 08/26/20 03:55 14 08/26/20 02:24 80 14 95 08/26/20 02:16 79 149/102 H 08/26/20 01:50 14 08/26/20 00:17 95 08/26/20 00:14 81 134/90 08/25/20 23:45 14 08/25/20 22:12 80 14 96 08/25/20 22:00 14 08/25/20 21:33 83 147/96 H 08/25/20 20:00 14 08/25/20 19:15 97 08/25/20 19:04 70 126/87 08/25/20 19:03 70 14 97 08/25/20 18:00 14 Weight Admit Weight 108.409 kg Weight 106.9 kg Most Recent Monitor Data Heart Rate from ECG 83 NIBP 136/93 NIBP BP-Mean 107 Respiration from ECG 15 SpO2 95 I&O: 08/24/20 08/25/20 08/26/20 06:59 06:59 06:59 Intake Total 2804 3621 1589 Output Total 4798 6055 3775 Balance -6582 -6559 -6005 Result Diagrams: 08/26/20 03:30 08/26/20 03:30 Phys Exam - Physical Examination Sedated and intubated Coarse breathsounds bilaterally Cardiovascular: RRR, no significant murmur Gastrointestinal: soft, non-tender, no distention No guarding Musculoskeletal: no edema, pulses present Skin: cap refill <2 seconds Dx/Plan - Plan Plan: Neuro: GCS: unable to assess due to sedation. Encephalopathy, resolved Neurogenic bladder: has suprapubic cath - wean propofol as able. Resp: Sepsis 2/2 PNA Covid pneumonia with superimposed bacterial pneumonia Acute on chronic hypoxic respiratory failure - Pulm consulted, appreciate recs. - sputum culture with no growth; low utility as has been on abx for some time now. - Has trach - on steroids - continue cefepime and vancomycin (08/21) for total of 7 days. This will likely have covered him and treated him for the bacterial infection. CV: Hx of diastolic CHF, Two Echos from 07/2020 confirm this diagnosis along with LVH Hx of HTN - balance fluid overload vs BRIAN Renal/: BRIAN vs BRIAN on CKD, improving Presumptive pseudomonas UTI in setting of suprapubic cath Neurogenic bladder - Urine culture showing presumptive pseudomonas >100K cfu. Cefepime shows intermediate resistance. Unsure how much UTI contributed to his symptoms. - Consider reculture of urine since we have changed suprapubic cath. If pseudomonas persists, we may start a broad antibiotic. Heme/ID: Covid PNA as above -I believe he did not receive remdesivir or plasma due to his intubated state Hx of MRSA bacteremia -Continue monitoring COVID inflammatory markers Hx of Iron deficiency anemia - iron PO once daily - Colace SHA to prevent constipation from iron treatment Endo: DM2 -SSI, glucose checks q4h -Q6hr humalog injection for tube feedings Code: Full IVF: NS at 120 mL/hr VTE: therapeutic lovenox. GI ppx: Pepcid Lines/Tubes: PICC line, trach, suprapubic catheter, NG tube Diet: Tube Feeds Vent setting: SIMV 14, TV 500, PS/PEEP 10/12, FIO2 65 Drips: Propofol 25 Dispo: Admit inpatient CCU, LOS > 48hrs Addendum - Attending - Attending Attestation Date/Time: 08/26/20 0908 I personally evaluated the patient and discussed the management with Dr. Dillon. I agree with the History, Examination, Assessment and Plan documented above with any addition or exceptions noted below. Patient overall stable. Continue vent mgmt. Increasing diabetic medications to get better control of blood sugars.
[2020-08-26 05:13] LABS: Vancomycin, Trough 19.3 ug/mL
[2020-08-26 05:18] LABS: Anion Gap 17 mmol/L (10-20); BUN (Urea Nitrogen) 36 mg/dL (8.9-20.6); Calc. Creatinine Clearance 113 mL/min (70-130); Calcium 9.1 mg/dL (7.8-10.44); Carbon Dioxide 26 mmol/L (22-29); Chloride 103 mmol/L (98-107); Estimated GFR-MDRD 64; Glucose 203 mg/dL (70-105); Potassium 3.4 mmol/L (3.5-5.1); Sodium 143 mmol/L (136-145)
[2020-08-26 05:23] LABS: Band 12 % (5-11); Elliptocytes SLIGHT = 2-5 cells (100X) (0-1/hpf); Hemoglobin 9.9 g/dL (14.0-18.0); Hypochromia SLIGHT = 6-15 cells (100X) (0-5/hpf); Lymphocytes 5 % (21-51); MDiff Complete? YES; Mean Corpuscular HGB CONC 31.2 g/dL (32.0-36.0); Mean Corpuscular Hemoglobin 25.5 pg (27.0-31.0); Mean Corpuscular Volume 81.8 fL (78.0-98.0); Mean Platelet Volume 9.3 fL (7.4-10.4); Monocytes 7 % (0-10); Neutrophil 76 % (42-75); Platelet Count 301 thou/uL (130-400); Platelet Morphology Comment Appears Adequate; RBC Distribution Width 15.1 % (11.5-14.5); Red Blood Cell (RBC) Count 3.89 mill/uL (4.70-6.10); White Blood Cell (WBC) Count 10.1 thou/uL (4.8-10.8)
[2020-08-26] MEDS: methylPREDNISolone Sod Succ 40 MG VIAL IVP SCH ×4 (05:39→23:20)
[2020-08-26] MEDS: HumaLOG 300 UNITS/3 ML VIAL SC SCH ×4 (05:39→23:21)
[2020-08-26] MEDS: Baclofen 10 MG TAB PO SCH (05:40)
[2020-08-26 07:46] LABS: Actual Bicarbonate (HCO3a) 30.8 mEq/L (22-28); Base Excess (BEa) 3.7 mEq/L (-2.0 to +3.0); CO2 Tension 59.4 mmHg (35.0-45.0); Calcium, Ionized (arterial) 1.18 mmol/L (1.12-1.30); Carboxyhemoglobin (COHb) 0.1 gm% (0.0-3.0); Hemoglobin (Hb) 11.1 g/dL (14.0-18.0); O2 Tension (PaO2), arterial 75.2 mmHg (80.0-100.0); Potassium - ABG Lab 3.25 mmol/L (3.70-5.30); pH, Arterial 7.33 (7.35-7.45)
[2020-08-26 07:47] LABS: Puncture Site RRA
--- NOTE | 2020-08-26 08:29 | PRG ---
DATE OF SERVICE: 08/26/2020 A 35 minutes of critical care time. SUBJECTIVE: The patient remains intubated on mechanical ventilation through his tracheostomy tube. There has been no acute changes overnight. OBJECTIVE: VITAL SIGNS: His temperature is 97.9, pulse 85, blood pressure 166/107. HEENT: Unremarkable. NECK: Trach in good position. LUNGS: Coarse breath sounds. CARDIOVASCULAR: S1, S2. Regular. ABDOMEN: Soft. EXTREMITIES: Edematous. LABORATORY DATA: Sodium 143, potassium 3.4, chloride 103, CO2 of 26, BUN 36, creatinine 1.2, glucose 203. C-reactive protein 12.9, pH 7.33, pCO2 of 59, pO2 of 75, SIMV rate of 14, tidal volume 500, PEEP 12, FiO2 of 65%. White blood cell count 10.1, hematocrit 31.8, and platelet count 301. X-ray shows a little bit clearing on the right side. ASSESSMENT: 1. COVID-19 pneumonia. 2. Possible bacterial pneumonia. 3. Acute respiratory failure requiring mechanical ventilation. 4. Quadriplegia. 5. Mild hypokalemia. PLAN: He is not weanable at this time. We will continue him on the present ventilator settings. Additionally, he will continue on the cefepime, vancomycin, steroids, and anticoagulation. His nutritional support will be through tube feeds. Anticipate him being on the ventilator for quite some time. Job ID: [id number]
[2020-08-26] MEDS ORDERED: Potassium Chloride 20 MEQ TAB PO SCH (09:00)
[2020-08-26] MEDS ORDERED: Electrolyte Replacement Protoc 1 EACH EACH FS SCH (09:00)
[2020-08-26] MEDS: Magnesium Oxide 400 MG TAB PO SCH ×2 (09:05→17:19)
[2020-08-26] MEDS: Atenolol 50 MG TAB PO SCH (09:05)
[2020-08-26] MEDS: Multivit, Therapeutic 1 TAB PO SCH (09:06)
[2020-08-26] MEDS: Gabapentin 300 MG CAP PO SCH ×4 (09:06→20:10)
[2020-08-26] MEDS: Amlodipine 10 MG TAB PO SCH (09:06)
[2020-08-26] MEDS: Famotidine/PF 20 mg/2ml Vial SLOW IVP SCH ×2 (09:07→20:09)
[2020-08-26] MEDS: Enoxaparin Sodium 100 MG/ML SYRINGE SC SCH ×2 (09:07→20:09)
[2020-08-26] MEDS: Polyethylene Glycol 3350 17 GM Packet PO SCH (09:07)
[2020-08-26] MEDS: Saccharomyces boulardii 250 MG CAP PO SCH (09:07)
[2020-08-26] MEDS: Lisinopril 5 MG TAB PO SCH (09:07)
[2020-08-26] MEDS: tiZANidine HCl 4 MG TAB PO SCH (09:07)
[2020-08-26] MEDS ORDERED: Aspirin Chewable 81 MG TAB PER TUBE SCH (09:15)
[2020-08-26] MEDS ORDERED: Electrolyte Replacement Protocol FS PRN (09:15)
[2020-08-26] MEDS: Aspirin 81 mg Enteric Coated Tablet PO SCH (09:19)
[2020-08-26] MEDS: Docusate 100 MG CAP PO SCH (09:20)
[2020-08-26] MEDS ORDERED: Docusate Sodium 100 MG/10 ML UDCUP PER TUBE SCH (09:30)
[2020-08-26] MEDS ORDERED: Diabetic Tussin 200 MG/10 ML UDCUP PER TUBE PRN (09:45)
[2020-08-26] MEDS: Ferrous Sulfate 325 MG TAB PO SCH (10:17)
[2020-08-26] MEDS: Baclofen 10 MG TAB PER TUBE SCH ×3 (10:57→23:20)
[2020-08-26] MEDS: HumaLOG 300 UNITS/3 ML VIAL SC PRN ×3 (10:58→22:08)
--- NOTE | 2020-08-26 12:34 | RAD ---
PORTABLE CHEST: HISTORY: Followup pneumonia. COMPARISON: Prior day's exam. FINDINGS: NG and tracheostomy tubes remain in satisfactory position. The parenchymal infiltrative lung changes are felt to be relatively stable given the differences in technique. IMPRESSION: Stable exam. POS: OFF
[2020-08-26] MEDS: Sodium Chloride 0.9% 1,000 ML IV SCH ×2 (12:46→21:25)
[2020-08-26] MEDS: tiZANidine HCl 4 MG TAB PER TUBE SCH ×3 (12:47→20:12)
[2020-08-26] MEDS: Docusate Sodium 100 MG/10 ML UDCUP PER TUBE SCH (20:09)
[2020-08-26] MEDS: Insulin Glargine 35 UNITS in Pre-Filled Syringe 1 EACH SC SCH (20:09)
[2020-08-26] MEDS: Amitriptyline HCl 25 MG TAB PER TUBE SCH (20:10)
[2020-08-26] MEDS: Atorvastatin Calcium 40 MG TAB PO SCH (20:10)
[2020-08-27] MEDS: Cefepime 2 GM in Sodium Chloride 0.9% 100 ML IVPB SCH ×2 (01:38→13:57)
[2020-08-27] MEDS: Vancomycin 1 GM in Premix Bag 1 BAG IVPB SCH (03:00)
[2020-08-27] MEDS: Sodium Chloride 0.9% 1,000 ML IV SCH ×2 (03:01→22:54)
[2020-08-27] MEDS: Vecuronium 10 MG VIAL IV PRN (03:04)
[2020-08-27] MEDS: Lorazepam 2 MG/ML VIAL SLOW IVP PRN (03:04)
[2020-08-27 04:25] LABS: INR-International Normal Ratio 1.2; PTT 52.4 sec (22.9-36.1); Prothrombin Time 15.2 sec (12.0-14.7)
[2020-08-27 04:29] LABS: Anion Gap 14 mmol/L (10-20); BUN (Urea Nitrogen) 49 mg/dL (8.9-20.6); Calc. Creatinine Clearance 104 mL/min (70-130); Calcium 8.7 mg/dL (7.8-10.44); Carbon Dioxide 30 mmol/L (22-29); Chloride 103 mmol/L (98-107); Estimated GFR-MDRD 59; Glucose 230 mg/dL (70-105); Potassium 3.6 mmol/L (3.5-5.1); Sodium 143 mmol/L (136-145)
[2020-08-27] MEDS: Baclofen 10 MG TAB PER TUBE SCH ×4 (05:06→22:55)
[2020-08-27] MEDS: methylPREDNISolone Sod Succ 40 MG VIAL IVP SCH (05:07)
[2020-08-27] MEDS: Propofol 1,000 MG/100 ML VIAL IV PRN ×3 (05:10→22:55)
[2020-08-27] MEDS: HumaLOG 300 UNITS/3 ML VIAL SC SCH ×4 (05:11→22:57)
--- NOTE | 2020-08-27 05:12 | PDOC.FM ---
- Subjective Subjective: Pt did fair overnight. He continues to have adequate urine output. BP is elevated this AM before his morning meds. - Objective MAR Reviewed: Yes Vital Signs & Weight: Vital Signs (12 hours) Pulse Resp BP Pulse Ox 08/27/20 02:32 81 14 100 08/27/20 02:30 80 130/85 08/27/20 00:28 79 127/85 08/27/20 00:27 99 08/26/20 22:45 74 14 95 08/26/20 22:41 74 142/88 H 08/26/20 20:00 100 08/26/20 18:37 85 125/86 08/26/20 18:32 84 97 H 20 L Weight Admit Weight 108.409 kg Weight 106.8 kg Most Recent Monitor Data Heart Rate from ECG 76 NIBP 141/88 NIBP BP-Mean 105 Respiration from ECG 15 SpO2 100 I&O: 08/25/20 08/26/20 08/27/20 06:59 06:59 06:59 Intake Total 3621 2852 2523 Output Total 6048 4025 2580 Balance -2434 -1173 -57 Result Diagrams: 08/26/20 03:30 08/27/20 03:05 Phys Exam - Physical Examination Intubated and sedated NG tube in place Neck: no JVD, supple coarse breath sounds Cardiovascular: RRR, no significant murmur Gastrointestinal: soft, no distention, positive bowel sounds Musculoskeletal: no edema, pulses present cold right upper extremity Dx/Plan - Plan Plan: Neuro: GCS: unable to assess due to sedation. Encephalopathy, resolved Neurogenic bladder: has suprapubic cath - wean propofol as able. Resp: Sepsis 2/2 PNA Bacterial PNA, COVID initially thought to be an incidental finding, will trend inflammatory markers Acute on chronic hypoxic respiratory failure - Pulm consulted, appreciate recs. - sputum culture with no growth; low utility as has been on abx for some time no w. - Has trach - on steroids - continue cefepime and vancomycin (08/21) for total of 7 days. This will likely have covered him and treated him for the bacterial infection. CV: Hx of diastolic CHF, Two Echos from 07/2020 confirm this diagnosis along with LVH Hx of HTN - balance fluid overload vs BRIAN Renal/: BRIAN vs BRIAN on CKD, improving Presumptive pseudomonas UTI in setting of suprapubic cath Neurogenic bladder - Urine culture showing presumptive pseudomonas >100K cfu. Cefepime shows intermediate resistance. Unsure how much UTI contributed to his symptoms. - Consider reculture of urine since we have changed suprapubic cath. If pseudomonas persists, we may start a broad antibiotic. Heme/ID: Covid PNA as above -I believe he did not receive remdesivir or plasma due to his intubated state a nd his initial presentation Hx of MRSA bacteremia -Continue monitoring COVID inflammatory markers Hx of Iron deficiency anemia - iron PO once daily - Colace SHA to prevent constipation from iron treatment Endo: DM2 -SSI, glucose checks q4h -Q6hr humalog injection for tube feedings -Lantus Code: Full IVF: NS at 120 mL/hr VTE: therapeutic lovenox. GI ppx: Pepcid Lines/Tubes: PICC line, trach, suprapubic catheter, NG tube Diet: Tube Feeds Vent setting: SIMV 14, TV 500, PS/PEEP 10/12, FIO2 65 Drips: Propofol 25 Dispo: Admit inpatient CCU, LOS > 48hrs Addendum - Attending - Attending Attestation Date/Time: 08/27/20 0706 I personally evaluated the patient and discussed the management with Dr. Dillon. I agree with the History, Examination, Assessment and Plan documented above with any addition or exceptions noted below. Patient overall stable. Needs improved blood pressure control. Blood sugars improved somewhat. Continue Vent mgmt per Pulm, anticipate slow wean due to comorbidities.
[2020-08-27 07:40] LABS: Actual Bicarbonate (HCO3a) 32.6 mEq/L (22-28); Base Excess (BEa) 4.4 mEq/L (-2.0 to +3.0); Calcium, Ionized (arterial) 1.23 mmol/L (1.12-1.30); Carboxyhemoglobin (COHb) 0.4 gm% (0.0-3.0); Hemoglobin (Hb) 11.1 g/dL (14.0-18.0); Potassium - ABG Lab 3.47 mmol/L (3.70-5.30); pH, Arterial 7.29 (7.35-7.45)
[2020-08-27 07:50] LABS: CO2 Tension 69.7 mmHg (35.0-45.0); O2 Tension (PaO2), arterial 44.3 mmHg (80.0-100.0); Puncture Site RRA
[2020-08-27 07:51] LABS: ALV-art Gradient 332.025 mmHg (0-20)
[2020-08-27] MEDS: Aspirin Chewable 81 MG TAB PER TUBE SCH (08:32)
[2020-08-27] MEDS: Magnesium Oxide 400 MG TAB PO SCH ×2 (08:32→16:48)
[2020-08-27] MEDS: Scopolamine 1.5 mg/72 hour Patch TD SCH (08:32)
[2020-08-27] MEDS: Docusate Sodium 100 MG/10 ML UDCUP PER TUBE SCH ×2 (08:33→20:13)
[2020-08-27] MEDS: Gabapentin 300 MG CAP PO SCH ×4 (08:35→19:48)
[2020-08-27] MEDS: Saccharomyces boulardii 250 MG CAP PER TUBE SCH (08:35)
[2020-08-27] MEDS: Amlodipine 10 MG TAB PER TUBE SCH (08:36)
[2020-08-27] MEDS: Atenolol 50 MG TAB PER TUBE SCH (08:36)
[2020-08-27] MEDS: Multivit, Therapeutic 1 TAB PER TUBE SCH (08:37)
[2020-08-27] MEDS: tiZANidine HCl 4 MG TAB PER TUBE SCH ×4 (08:37→19:49)
[2020-08-27] MEDS: Lisinopril 5 MG TAB PER TUBE SCH (08:38)
[2020-08-27] MEDS: Enoxaparin Sodium 100 MG/ML SYRINGE SC SCH ×2 (08:38→20:18)
[2020-08-27] MEDS: Famotidine/PF 20 mg/2ml Vial SLOW IVP SCH ×2 (08:38→19:48)
[2020-08-27] MEDS: Polyethylene Glycol 3350 17 GM Packet PER TUBE SCH (08:39)
--- NOTE | 2020-08-27 10:56 | RAD ---
PORTABLE CHEST: HISTORY: Pneumonia. COMPARISON: Prior day's exam. FINDINGS: Tracheostomy tube and NG tubes as well as a left-sided PICC line remain unchanged in position. Exten sive parenchymal infiltrative lung changes are stable. IMPRESSION: Stable overall exam. POS: OFF
--- NOTE | 2020-08-27 11:29 | PRG ---
DATE OF SERVICE: 08/27/2020 35 minutes of critical care time. SUBJECTIVE: The patient remains on mechanical ventilation through his tracheostomy. There has been no acute changes. OBJECTIVE: VITAL SIGNS: His temperature 96.3, pulse 85, blood pressure 183/116. He is on propofol drip. 24-hour intake 4082, output 2830. HEENT: Unremarkable. NECK: No JVD. Trach in good position. LUNGS: Coarse breath sounds. CARDIAC: S1, S2. Regular. ABDOMEN: Soft. EXTREMITIES: Trace edema. LABORATORY DATA: Sodium 143, potassium 3.6, chloride 103, CO2 of 30, BUN 49, creatinine 1.3, glucose 230. C-reactive protein 12.6. CBC was not done today. Coagulation parameters, INR 1.2, PTT 52.4. D-dimer 9.0. X-ray continues to show bilateral infiltrative changes. ASSESSMENT: 1. COVID-19 pneumonia. 2. Acute respiratory failure requiring mechanical ventilation. 3. Worsening inflammatory markers. PLAN: The patient is not weanable. He is actually doing worse with the COVID-19 pneumonia and I would not expect him to survive. We are continuing steroids and anticoagulation. Given that his renal function is slowly worsening and no staph has grown out in his current cultures, I would stop the vancomycin. I am going to switch his steroids to hydrocortisone. Job ID: [id number]
[2020-08-27] MEDS: Hydrocortisone Sod Succ/PF 100 mg/2 ml Vial IVP SCH ×3 (11:54→22:55)
[2020-08-27] MEDS: HumaLOG 300 UNITS/3 ML VIAL SC PRN ×2 (12:11→17:21)
[2020-08-27 12:16] LABS: Hemoglobin 8.7 g/dL (14.0-18.0); Mean Corpuscular HGB CONC 30.2 g/dL (32.0-36.0); Mean Corpuscular Volume 82.6 fL (78.0-98.0); Mean Platelet Volume 9.7 fL (7.4-10.4); Platelet Count 275 thou/uL (130-400); RBC Distribution Width 15.3 % (11.5-14.5); Red Blood Cell (RBC) Count 3.48 mill/uL (4.70-6.10); White Blood Cell (WBC) Count 7.4 thou/uL (4.8-10.8)
[2020-08-27 12:33] LABS: Anisocytosis SLIGHT = 6-15 cells (100X) (0-5/hpf); Band 1 % (5-11); Hypochromia SLIGHT = 6-15 cells (100X) (0-5/hpf); Lymphocytes 13 % (21-51); MDiff Complete? YES; Monocytes 5 % (0-10); Neutrophil 81 % (42-75); Platelet Morphology Comment Appears Adequate
[2020-08-27] MEDS: Amitriptyline HCl 25 MG TAB PER TUBE SCH (19:47)
[2020-08-27] MEDS: Atorvastatin Calcium 40 MG TAB PO SCH (19:48)
[2020-08-27] MEDS: Insulin Glargine 35 UNITS in Pre-Filled Syringe 1 EACH SC SCH (20:14)
[2020-08-28] MEDS: Cefepime 2 GM in Sodium Chloride 0.9% 100 ML IVPB SCH (01:45)
[2020-08-28] MEDS: Propofol 1,000 MG/100 ML VIAL IV PRN ×4 (03:49→21:41)
[2020-08-28 04:13] LABS: #Lymphocytes 0.4 thou/uL (1.20-3.40); #Monocytes 0.4 thou/uL (0.11-0.59); #Neutrophils 5.1 thou/uL (1.40-6.50); %Basophils 0.2 % (0.0-1.0); %Eosinophils 0.4 % (0.0-10.0); %Lymphocytes 6.9 % (21.0-51.0); %Monocytes 7.4 % (0.0-10.0); %Neutrophils 85.1 % (42.0-75.0); Hemoglobin 10.7 g/dL (14.0-18.0); Mean Corpuscular HGB CONC 30.9 g/dL (32.0-36.0); Mean Corpuscular Volume 81.1 fL (78.0-98.0); Mean Platelet Volume 9.6 fL (7.4-10.4); Platelet Count 236 thou/uL (130-400); RBC Distribution Width 15.1 % (11.5-14.5); Red Blood Cell (RBC) Count 4.29 mill/uL (4.70-6.10); White Blood Cell (WBC) Count 5.9 thou/uL (4.8-10.8)
[2020-08-28 04:30] LABS: Vancomycin, Trough 23.2 ug/mL
[2020-08-28 04:32] LABS: Anion Gap 15 mmol/L (10-20); BUN (Urea Nitrogen) 59 mg/dL (8.9-20.6); Calc. Creatinine Clearance 104 mL/min (70-130); Calcium 8.7 mg/dL (7.8-10.44); Carbon Dioxide 26 mmol/L (22-29); Chloride 105 mmol/L (98-107); Estimated GFR-MDRD 59; Glucose 151 mg/dL (70-105); Sodium 143 mmol/L (136-145)
[2020-08-28 04:39] LABS: INR-International Normal Ratio 1.2; PTT 64.8 sec (22.9-36.1); Prothrombin Time 15.9 sec (12.0-14.7)
[2020-08-28 04:50] LABS: D-Dimer Test 7.4 *mcg/mL (0.27-0.43)
[2020-08-28] MEDS: Baclofen 10 MG TAB PER TUBE SCH ×4 (05:06→23:16)
[2020-08-28] MEDS: HumaLOG 300 UNITS/3 ML VIAL SC SCH ×4 (05:07→23:16)
[2020-08-28] MEDS: Hydrocortisone Sod Succ/PF 100 mg/2 ml Vial IVP SCH ×4 (05:35→23:55)
--- NOTE | 2020-08-28 07:09 | PDOC.FM ---
- Subjective Subjective: Pt is currently intubated and sedated. - Objective Vital Signs & Weight: Vital Signs (12 hours) Temp Pulse Resp BP Pulse Ox 08/28/20 06:00 22 H 08/28/20 04:57 67 08/28/20 04:00 98.9 F 22 H 08/28/20 02:21 70 124/76 08/28/20 02:00 22 H 08/27/20 23:58 22 H 08/27/20 23:00 98.7 F 08/27/20 22:00 22 H 08/27/20 21:56 55 L 111/78 08/27/20 20:00 22 H 100 Weight Admit Weight 108.409 kg Weight 106.1 kg Most Recent Monitor Data Heart Rate from ECG 65 NIBP 161/86 NIBP BP-Mean 111 Respiration from ECG 21 SpO2 100 I&O: 08/27/20 08/28/20 08/29/20 06:59 06:59 06:59 Intake Total 4082 2740.3 Output Total 2830 1620 120 Balance 1252 1120.3 -120 Result Diagrams: 08/28/20 04:00 08/28/20 04:00 Radiology Reviewed by me: Yes (Mild improvement in interstitial infiltrates) Phys Exam - Physical Examination Intubated and sedated HEENT: moist MMs Neck: no nodes, supple Slight expiratory wheezing throughout Cardiovascular: RRR, no significant murmur Gastrointestinal: soft, non-tender, positive bowel sounds Musculoskeletal: no edema, pulses present unable to assess due to sedation Lymphatic: no nodes Skin: no rash, normal turgor Dx/Plan (1) COVID-19 Code(s): U07.1 - COVID-19 Status: Acute (2) Acute hypoxemic respiratory failure due to COVID-19 Code(s): U07.1 - COVID-19; J96.01 - ACUTE RESPIRATORY FAILURE WITH HYPOXIA Status: Acute (3) Acute kidney injury Code(s): N17.9 - ACUTE KIDNEY FAILURE, UNSPECIFIED Status: Acute (4) Sepsis with acute organ dysfunction Code(s): A41.9 - SEPSIS, UNSPECIFIED ORGANISM; R65.20 - SEVERE SEPSIS WITHOUT SEPTIC SHOCK Status: Acute (5) DM type 2 (diabetes mellitus, type 2) Status: Chronic Qualifiers: Diabetes mellitus senior living insulin use: with roasterman use (6) Hypertension Code(s): I10 - ESSENTIAL (PRIMARY) HYPERTENSION Status: Chronic (7) Neurogenic bladder Code(s): N31.9 - NEUROMUSCULAR DYSFUNCTION OF BLADDER, UNSPECIFIED Status: Chronic - Plan Plan: Neuro: GCS: unable to assess due to sedation. Encephalopathy, resolved -Stop paralytics and wean propofol as able. Neurogenic bladder: has suprapubic cath Resp: Sepsis 2/2 PNA Bacterial PNA, COVID initially thought to be an incidental finding, will trend inflammatory markers Acute on chronic hypoxic respiratory failure -Pulm consulted, appreciate recs. -Sputum culture with no growth; low utility as has been on abx for some time now. -Has trach -Currently on steroids -Continue cefepime and vancomycin (08/21) discontinued. This will likely have covered him and treated him for the bacterial infection. CV: Hx of diastolic CHF -[facility] Echos from 07/2020 confirm this diagnosis along with LVH Hx of HTN -Balance fluid overload vs BRIAN Renal/: BRIAN vs BRIAN on CKD, improving Presumptive pseudomonas UTI in setting of suprapubic cath Neurogenic bladder -Urine culture showing presumptive pseudomonas >100K cfu. Cefepime shows intermediate resistance. Unsure how much UTI contributed to his symptoms. -Consider reculture of urine since we have changed suprapubic cath. If pseudomonas persists, we may start a broad antibiotic. Heme/ID: Covid PNA as above -Did not receive remdesivir or plasma due to his intubated state and his initial presentation. Discussed with Dr. Chavez who said we could try Convalescent Plasma. Will call and discuss with family. -Continue monitoring COVID inflammatory markers Hx of MRSA bacteremia Hx of Iron deficiency anemia - iron PO once daily - Colace SHA to prevent constipation from iron treatment. Last BM on 08/24. Will start Senokot. Endo: DM2 -SSI, glucose checks q4h -Q6hr humalog injection for tube feedings -Lantus Code: Full IVF: NS at 120 mL/hr VTE: therapeutic lovenox. GI ppx: Pepcid Lines/Tubes: PICC line, trach, suprapubic catheter, NG tube Diet: Tube Feeds Vent setting: SIMV 22, TV 500, PS/PEEP 10/12, FIO2 60 Drips: Propofol 25 Dispo: Will call and discuss with family and start convalescent plasma. Adjustment of Vent settings per Dr. Chavez's recommendation. Added on Senokot due to constipation. Addendum - Attending - Attending Attestation Date/Time: 08/28/201099 I personally evaluated the patient and discussed the management with Dr. Fleming. I agree with the History, Examination, Assessment and Plan documented above with any addition or exceptions noted below.
[2020-08-28 07:42] LABS: Actual Bicarbonate (HCO3a) 28.1 mEq/L (22-28); CO2 Tension 40.3 mmHg (35.0-45.0); Calcium, Ionized (arterial) 1.19 mmol/L (1.12-1.30); Carboxyhemoglobin (COHb) 0.3 gm% (0.0-3.0); Hemoglobin (Hb) 9.3 g/dL (14.0-18.0); O2 Tension (PaO2), arterial 91.4 mmHg (80.0-100.0); Potassium - ABG Lab 2.88 mmol/L (3.70-5.30); pH, Arterial 7.46 (7.35-7.45)
[2020-08-28 07:43] LABS: ALV-art Gradient 286.025 mmHg (0-20); Puncture Site RRA
[2020-08-28] MEDS: Potassium Chloride 20 MEQ in Premix Bag 1 BAG IVPB SCH ×2 (08:18→10:18)
[2020-08-28] MEDS: Docusate Sodium 100 MG/10 ML UDCUP PER TUBE SCH ×2 (08:18→20:22)
[2020-08-28] MEDS: Polyethylene Glycol 3350 17 GM Packet PER TUBE SCH (08:19)
[2020-08-28] MEDS: Famotidine/PF 20 mg/2ml Vial SLOW IVP SCH ×2 (08:19→20:20)
[2020-08-28] MEDS: Gabapentin 300 MG CAP PO SCH ×4 (08:20→20:21)
[2020-08-28] MEDS: Saccharomyces boulardii 250 MG CAP PER TUBE SCH (08:20)
[2020-08-28] MEDS: Atenolol 50 MG TAB PER TUBE SCH (08:20)
[2020-08-28] MEDS: Aspirin Chewable 81 MG TAB PER TUBE SCH (08:20)
[2020-08-28] MEDS: Enoxaparin Sodium 100 MG/ML SYRINGE SC SCH (08:20)
[2020-08-28] MEDS: Magnesium Oxide 400 MG TAB PO SCH ×2 (08:21→18:00)
[2020-08-28] MEDS: Multivit, Therapeutic 1 TAB PER TUBE SCH (08:21)
[2020-08-28] MEDS: Lisinopril 5 MG TAB PER TUBE SCH (08:21)
[2020-08-28] MEDS: tiZANidine HCl 4 MG TAB PER TUBE SCH ×4 (08:21→20:21)
[2020-08-28] MEDS: Amlodipine 10 MG TAB PER TUBE SCH (08:21)
--- NOTE | 2020-08-28 08:25 | PRG ---
DATE OF SERVICE: 08/28/2020 35 minutes of critical care time. SUBJECTIVE: The patient remains intubated on mechanical ventilation. There have been no acute changes overnight. OBJECTIVE: VITAL SIGNS: His temperature is 97.7, pulse 65, blood pressure 161/86, O2 saturation 100%. He is currently on a propofol drip for sedation. Total intake 2703, output 1610. Weight 233 pounds. HEENT: Unremarkable. NECK: No JVD. CHEST: Clear. CARDIAC: S1 and S2, regular. ABDOMEN: Soft. EXTREMITIES: No edema. LABORATORY DATA: ABG; pH 7.46, pCO2 of 40, pO2 of 91 on SIMV, rate 22, tidal volume 500, PEEP 12, pressure support 10, and FiO2 of 60%. White blood cell count 5.9, hematocrit 34.8, and platelet count 236. INR is 1.2. D-dimer 7.4. Sodium 143, potassium 3, chloride 105, CO2 of 26, BUN 59, creatinine 1.3, and glucose 151. C-reactive protein 7.9. Chest x-ray shows some improvement. ASSESSMENT: 1. COVID-19 pneumonia. 2. Acute hypoxic respiratory failure, requiring mechanical ventilation. 3. Quadriplegia. 4. Slightly worsened renal status. 5. Hypokalemia. PLAN: 1. Replace potassium. 2. Continue hydrocortisone. 3. Continue anticoagulation, but reduce dose secondary to developing renal insufficiency. 4. Antibiotics have been stopped. 5. Paralytics can be stopped. 6. I have decreased his ventilator parameters, but he is not a candidate for aggressive weaning at this time. Job ID: [id number]
--- NOTE | 2020-08-28 08:38 | RAD ---
PORTABLE CHEST: Date: 08/28/2020 Time: 0441 hours HISTORY: Pneumonia. Respiratory failure. COMPARISON: Previous day. FINDINGS/IMPRESSION: Allowing for differences in technique, no significant interval change is seen. POS: OFF
[2020-08-28] MEDS ORDERED: Senokot S 8.6-50 MG TAB PER TUBE SCH (09:45)
[2020-08-28] MEDS: Sodium Chloride 0.9% 1,000 ML IV SCH ×2 (13:20→23:56)
[2020-08-28] MEDS: Dextrose 50% Abboject 50 ML SYRINGE IVP PRN (16:14)
[2020-08-28] MEDS: Insulin Glargine 35 UNITS in Pre-Filled Syringe 1 EACH SC SCH ×2 (20:19→22:13)
[2020-08-28] MEDS: Senokot S 8.6-50 MG TAB PER TUBE SCH (20:20)
[2020-08-28] MEDS: Atorvastatin Calcium 40 MG TAB PO SCH (20:20)
[2020-08-28] MEDS: Amitriptyline HCl 25 MG TAB PER TUBE SCH (20:21)
[2020-08-29] MEDS: Propofol 1,000 MG/100 ML VIAL IV PRN ×5 (03:27→23:13)
[2020-08-29 04:45] LABS: Anion Gap 13 mmol/L (10-20); BUN (Urea Nitrogen) 50 mg/dL (8.9-20.6); Calc. Creatinine Clearance 118 mL/min (70-130); Calcium 8.9 mg/dL (7.8-10.44); Carbon Dioxide 28 mmol/L (22-29); Chloride 108 mmol/L (98-107); Estimated GFR-MDRD 68; Glucose 66 mg/dL (70-105); Sodium 146 mmol/L (136-145)
[2020-08-29] MEDS: Dextrose 50% Abboject 50 ML SYRINGE IVP PRN (04:50)
[2020-08-29 04:53] LABS: INR-International Normal Ratio 1.1; PTT 41.9 sec (22.9-36.1); Prothrombin Time 14.2 sec (12.0-14.7)
[2020-08-29 05:00] LABS: Band 3 % (5-11); Hemoglobin 9.9 g/dL (14.0-18.0); Hypochromia SLIGHT = 6-15 cells (100X) (0-5/hpf); Lymphocytes 15 % (21-51); MDiff Complete? YES; Mean Corpuscular Hemoglobin 24.9 pg (27.0-31.0); Mean Corpuscular Volume 80.4 fL (78.0-98.0); Mean Platelet Volume 9.6 fL (7.4-10.4); Metamyelocyte 1 % (0-0); Neutrophil 81 % (42-75); Platelet Count 282 thou/uL (130-400); Platelet Morphology Comment Appears Adequate; RBC Distribution Width 15.1 % (11.5-14.5); Red Blood Cell (RBC) Count 3.99 mill/uL (4.70-6.10); White Blood Cell (WBC) Count 7.2 thou/uL (4.8-10.8)
[2020-08-29] MEDS ORDERED: Potassium Chloride 40 MEQ in Premix Bag 1 BAG IVPB SCH (05:00)
[2020-08-29 05:07] LABS: D-Dimer Test 8.07 *mcg/mL (0.27-0.43)
[2020-08-29] MEDS: Baclofen 10 MG TAB PER TUBE SCH ×4 (05:33→23:14)
[2020-08-29] MEDS: HumaLOG 300 UNITS/3 ML VIAL SC SCH (05:34)
[2020-08-29] MEDS: Hydrocortisone Sod Succ/PF 100 mg/2 ml Vial IVP SCH ×4 (05:35→23:14)
--- NOTE | 2020-08-29 07:15 | PDOC.FM ---
- Subjective Subjective: Pt is intubated and sedated. - Objective MAR Reviewed: Yes Vital Signs & Weight: Vital Signs (12 hours) Pulse Resp Pulse Ox 08/29/20 05:41 18 08/29/20 04:00 18 08/29/20 02:23 74 24 H 100 08/29/20 02:00 18 08/29/20 00:00 18 08/28/20 22:00 18 08/28/20 21:43 57 L 18 100 08/28/20 19:51 18 08/28/20 19:30 100 Weight Admit Weight 108.409 kg Weight 106.5 kg Most Recent Monitor Data Heart Rate from ECG 78 NIBP 173/98 NIBP BP-Mean 123 Respiration from ECG 25 SpO2 99 I&O: 08/28/20 08/29/20 08/30/20 06:59 06:59 06:59 Intake Total 2740.3 2654 Output Total 1620 3435 Balance 1120.3 -781 Result Diagrams: 08/29/20 04:00 08/29/20 04:00 Radiology Reviewed by me: Yes (Chest xray shows no significant interval change.) Phys Exam - Physical Examination intubated and dsedated HEENT: moist MMs, sclera anicteric Neck: no nodes, supple Respiratory: wheezing present Cardiovascular: RRR, no significant murmur Gastrointestinal: soft, non-tender Musculoskeletal: no edema, pulses present Unable to assess Lymphatic: no nodes Deviation from normal: Unable to assess Skin: no rash, normal turgor Dx/Plan (1) COVID-19 Code(s): U07.1 - COVID-19 Status: Acute (2) Acute hypoxemic respiratory failure due to COVID-19 Code(s): U07.1 - COVID-19; J96.01 - ACUTE RESPIRATORY FAILURE WITH HYPOXIA Status: Acute (3) Acute kidney injury Code(s): N17.9 - ACUTE KIDNEY FAILURE, UNSPECIFIED Status: Acute (4) Sepsis with acute organ dysfunction Code(s): A41.9 - SEPSIS, UNSPECIFIED ORGANISM; R65.20 - SEVERE SEPSIS WITHOUT SEPTIC SHOCK Status: Acute (5) DM type 2 (diabetes mellitus, type 2) Status: Chronic Qualifiers: Diabetes mellitus rn long term care insulin use: with jail use (6) Hypertension Code(s): I10 - ESSENTIAL (PRIMARY) HYPERTENSION Status: Chronic (7) Neurogenic bladder Code(s): N31.9 - NEUROMUSCULAR DYSFUNCTION OF BLADDER, UNSPECIFIED Status: Chronic - Plan Plan: Mr. Stinson is a 50 year old AAM with quadriplegia with Neurogenic Bladder, CHF, and Iron Deficiency Anemia who has Acute Hypoxic Respiratory Distress 2/2 COVID PNA. Neuro: GCS: unable to assess due to sedation. Encephalopathy, resolved -Stop paralytics and wean propofol as able. Neurogenic bladder: has suprapubic cath Resp: Sepsis 2/2 PNA Bacterial PNA, COVID initially thought to be an incidental finding, will trend inflammatory markers Acute on chronic hypoxic respiratory failure -Pulm consulted, appreciate recs. -Sputum culture with no growth; low utility as has been on abx for some time now. -Has trach -Currently on steroids -Will get consent for Convalescent plasma -ISARIC Score: 10/14, 26.9% in hospital mortalitiy CV: Hx of diastolic CHF -Two Echos from 07/2020 confirm this diagnosis along with LVH Hx of HTN -Elevated blood pressures consistently with negative output. Increased Lisinopril from 5 mg to 10 mg Renal/: BRIAN vs BRIAN on CKD, improving Presumptive pseudomonas UTI in setting of suprapubic cath Neurogenic bladder -Urine culture showing presumptive pseudomonas >100K cfu. Cefepime shows intermediate resistance. Unsure how much UTI contributed to his symptoms. Heme/ID: Covid PNA as above -Did not receive remdesivir or plasma due to his intubated state and his initial presentation. Discussed with Dr. Chavez who said we could try Convalescent Plasma. Will call and discuss with family. -Continue monitoring COVID inflammatory markers Hx of MRSA bacteremia Hx of Iron deficiency anemia - iron PO once daily - Colace SHA to prevent constipation from iron treatment. 2 BMs yesterday. Senokot onboard. Endo: DM2 -SSI, glucose checks q4h -Q6hr humalog injection for tube feedings -Lantus Code: Full IVF: NS at 120 mL/hr VTE: therapeutic lovenox GI ppx: Pepcid Lines/Tubes: PICC line, trach, suprapubic catheter, NG tube Diet: Tube Feeds Vent setting: SIMV 18, TV 500, PS/PEEP 10/12, FIO2 50 Drips: Propofol 25 Dispo: Will call and discuss with family and start convalescent plasma. Adjustment of Vent settings per Dr. Chavez's recommendation. Addendum - Attending - Attending Attestation Date/Time: 08/29/20 3640 I personally evaluated the patient and discussed the management with Dr. Fleming. I agree with the History, Examination, Assessment and Plan documented above with any addition or exceptions noted below. Patient overall stable. Continue vent/pulm management per Pulm. Continue anticoagulation, abx, and steroids. Glycemic control. Increasing free water intake.
--- NOTE | 2020-08-29 08:09 | PRG ---
DATE OF SERVICE: 08/29/2020 35 minutes of critical care time. SUBJECTIVE: The patient remains on mechanical ventilation through his tracheostomy. There have been no acute changes overnight. OBJECTIVE: VITAL SIGNS: Temperature 97.3, pulse 78, blood pressure 173/98, and O2 saturation 99%. 24-hour input 2654, output 3435. HEENT: Unremarkable. NECK: Trach in good position. LUNGS: Coarse rhonchi. CARDIOVASCULAR: S1 and S2. Regular. ABDOMEN: Soft. EXTREMITIES: Edematous. LABORATORY DATA: Sodium 146, potassium 3.0, chloride 108, CO2 of 28, BUN 50, creatinine 1.1, glucose 66. C-reactive protein 8.9. A pH 7.46, pCO2 of 41, pO2 of 62, on SIMV rate 14, tidal volume 500, PEEP 12, and FiO2 of 50%. White blood cell count 7.2, hematocrit 32.1, and platelet count 282. Chest x-ray shows no discrete change. ASSESSMENT: 1. Acute hypoxic respiratory failure. 2. COVID-19 pneumonia. 3. Quadriplegia. 4. Prerenal azotemia. 5. Hypokalemia. 6. Hypernatremia. PLAN: At this point, we probably need to give him some free water. I think this could be given in the form of D5W given that he has been continually hypoglycemic. His potassium has been replaced this morning. He will continue on hydrocortisone, anticoagulation. His empiric antibiotics have been stopped as he has had more than 7 days. Job ID: [id number]
[2020-08-29] MEDS ORDERED: HumaLOG 300 UNITS/3 ML VIAL SC PRN (08:25)
[2020-08-29] MEDS: Senokot S 8.6-50 MG TAB PER TUBE SCH ×2 (08:44→19:57)
[2020-08-29] MEDS: Enoxaparin Sodium 100 MG/ML SYRINGE SC SCH (08:44)
[2020-08-29] MEDS: Aspirin Chewable 81 MG TAB PER TUBE SCH (08:44)
[2020-08-29] MEDS: Magnesium Oxide 400 MG TAB PO SCH ×2 (08:44→16:49)
[2020-08-29] MEDS: Polyethylene Glycol 3350 17 GM Packet PER TUBE SCH (08:44)
[2020-08-29] MEDS: Atenolol 50 MG TAB PER TUBE SCH (08:45)
[2020-08-29] MEDS: Multivit, Therapeutic 1 TAB PER TUBE SCH (08:45)
[2020-08-29] MEDS: Amlodipine 10 MG TAB PER TUBE SCH (08:46)
[2020-08-29] MEDS: Saccharomyces boulardii 250 MG CAP PER TUBE SCH (08:46)
[2020-08-29] MEDS: Gabapentin 300 MG CAP PO SCH ×4 (08:46→19:55)
[2020-08-29] MEDS: tiZANidine HCl 4 MG TAB PER TUBE SCH ×4 (08:46→19:57)
[2020-08-29] MEDS: Docusate Sodium 100 MG/10 ML UDCUP PER TUBE SCH ×2 (08:47→19:55)
[2020-08-29] MEDS: Famotidine/PF 20 mg/2ml Vial SLOW IVP SCH ×2 (08:47→19:55)
[2020-08-29] MEDS: Dextrose 5% in Water 1,000 ML IV SCH ×2 (08:49→19:57)
[2020-08-29] MEDS ORDERED: Lisinopril 10 MG TAB PER TUBE SCH (09:00)
--- NOTE | 2020-08-29 09:01 | RAD ---
PORTABLE CHEST: HISTORY: Pneumonia followup. COMPARISON: 08/28/2020. FINDINGS: There are diffuse bilateral infiltrates. There are more confluent in the left lung base. Probable s mall effusions. Tracheostomy device with NG tube. IMPRESSION: Persistent bilateral infiltrates. POS: AGW
[2020-08-29] MEDS: HumaLOG 300 UNITS/3 ML VIAL SC PRN ×2 (16:43→22:41)
[2020-08-29] MEDS: Insulin Glargine 35 UNITS in Pre-Filled Syringe 1 EACH SC SCH (19:55)
[2020-08-29] MEDS: Lisinopril 10 MG TAB PER TUBE SCH (19:56)
[2020-08-29] MEDS: Atorvastatin Calcium 40 MG TAB PO SCH (19:57)
[2020-08-29] MEDS: Amitriptyline HCl 25 MG TAB PER TUBE SCH (19:57)
[2020-08-30 05:08] LABS: PTT 38.5 sec (22.9-36.1)
[2020-08-30 05:09] LABS: INR-International Normal Ratio 1.1; Prothrombin Time 14.5 sec (12.0-14.7)
[2020-08-30 05:20] LABS: Band 11 % (5-11); Eosinophils 1 % (0-10); Hemoglobin 8.1 g/dL (14.0-18.0); Lymphocytes 10 % (21-51); MDiff Complete? YES; Mean Corpuscular HGB CONC 31.9 g/dL (32.0-36.0); Mean Corpuscular Hemoglobin 25.5 pg (27.0-31.0); Mean Corpuscular Volume 79.9 fL (78.0-98.0); Metamyelocyte 4 % (0-0); Monocytes 3 % (0-10); Neutrophil 71 % (42-75); Platelet Count 280 thou/uL (130-400); Platelet Morphology Comment Appears Adequate; RBC Distribution Width 15.2 % (11.5-14.5); Red Blood Cell (RBC) Count 3.19 mill/uL (4.70-6.10); White Blood Cell (WBC) Count 8.6 thou/uL (4.8-10.8)
[2020-08-30 05:23] LABS: D-Dimer Test 7.45 *mcg/mL (0.27-0.43)
[2020-08-30] MEDS: Hydrocortisone Sod Succ/PF 100 mg/2 ml Vial IVP SCH ×4 (05:29→23:33)
[2020-08-30] MEDS: Baclofen 10 MG TAB PER TUBE SCH ×4 (05:30→23:32)
[2020-08-30 05:41] LABS: Anion Gap 14 mmol/L (10-20); BUN (Urea Nitrogen) 45 mg/dL (8.9-20.6); Calc. Creatinine Clearance 109 mL/min (70-130); Calcium 8.7 mg/dL (7.8-10.44); Carbon Dioxide 28 mmol/L (22-29); Chloride 103 mmol/L (98-107); Estimated GFR-MDRD 62; Glucose 196 mg/dL (70-105); Sodium 142 mmol/L (136-145)
[2020-08-30] MEDS: HumaLOG 300 UNITS/3 ML VIAL SC PRN ×2 (05:48→17:40)
[2020-08-30] MEDS ORDERED: Potassium Chloride 40 MEQ in Premix Bag 1 BAG IVPB SCH (07:00)
--- NOTE | 2020-08-30 07:13 | PDOC.FM ---
- Subjective Subjective: Pt is intubated and sedated. - Objective MAR Reviewed: Yes Vital Signs & Weight: Vital Signs (12 hours) Pulse Resp BP Pulse Ox 08/30/20 04:00 18 08/30/20 02:15 61 18 100 08/30/20 02:00 18 08/30/20 00:00 18 08/29/20 22:27 64 18 100 08/29/20 22:00 23 H 08/29/20 20:00 100 08/29/20 19:56 153/99 H 08/29/20 19:16 23 H Weight Admit Weight 108.409 kg Weight 106.8 kg Most Recent Monitor Data Heart Rate from ECG 77 NIBP 157/102 NIBP BP-Mean 120 Respiration from ECG 23 SpO2 100 I&O: 08/28/20 08/29/20 08/30/20 06:59 06:59 06:59 Intake Total 2740.3 2654 1498 Output Total 1620 3435 2535 Balance 1120.3 -781 -1037 Result Diagrams: 08/30/20 04:00 08/30/20 04:00 Radiology Reviewed by me: Yes (No interval change in chest x-ray) Phys Exam - Physical Examination Intubated and sedated HEENT: sclera anicteric Neck: no nodes, supple Respiratory: no wheezing, clear to auscultation bilateral Cardiovascular: RRR, no significant murmur Gastrointestinal: soft, non-tender Musculoskeletal: no edema, pulses present Sedated Lymphatic: no nodes Skin: no rash, normal turgor Dx/Plan (1) COVID-19 Code(s): U07.1 - COVID-19 Status: Acute (2) Acute hypoxemic respiratory failure due to COVID-19 Code(s): U07.1 - COVID-19; J96.01 - ACUTE RESPIRATORY FAILURE WITH HYPOXIA Status: Acute (3) Acute kidney injury Code(s): N17.9 - ACUTE KIDNEY FAILURE, UNSPECIFIED Status: Acute (4) Sepsis with acute organ dysfunction Code(s): A41.9 - SEPSIS, UNSPECIFIED ORGANISM; R65.20 - SEVERE SEPSIS WITHOUT SEPTIC SHOCK Status: Acute (5) DM type 2 (diabetes mellitus, type 2) Status: Chronic Qualifiers: Diabetes mellitus chcf insulin use: with chcf use (6) Hypertension Code(s): I10 - ESSENTIAL (PRIMARY) HYPERTENSION Status: Chronic (7) Neurogenic bladder Code(s): N31.9 - NEUROMUSCULAR DYSFUNCTION OF BLADDER, UNSPECIFIED Status: Chronic - Plan Plan: Mr. Stinson is a 50 year old AAM with quadriplegia with Neurogenic Bladder, CHF, and Iron Deficiency Anemia who has Acute Hypoxic Respiratory Distress 2/2 COVID PNA. Neuro: GCS: unable to assess due to sedation. Encephalopathy, resolved -Stop paralytics and wean propofol as able. Neurogenic bladder: has suprapubic cath Resp: Sepsis 2/2 PNA Bacterial PNA, COVID initially thought to be an incidental finding, will trend inflammatory markers Acute on chronic hypoxic respiratory failure -Pulm consulted, appreciate recs. -Sputum culture with no growth; low utility as has been on abx for some time now. -Has trach -Currently on steroids -Convalescent Plasma given -ISARIC Score: 10/14, 26.9% in hospital mortality CV: Hx of diastolic CHF -Two Echos from 07/2020 confirm this diagnosis along with LVH Hx of HTN -Elevated blood pressures consistently with negative output. Increased Lisinopril from 5 mg to 10 mg Renal/: BRIAN vs BRIAN on CKD, improving Presumptive pseudomonas UTI in setting of suprapubic cath Neurogenic bladder -Urine culture showing presumptive pseudomonas >100K cfu. Cefepime shows intermediate resistance. Unsure how much UTI contributed to his symptoms. Heme/ID: Covid PNA as above -Convalescent plasma -Continue monitoring COVID inflammatory markers Hx of MRSA bacteremia Hx of Iron deficiency anemia - iron PO once daily - Colace SHA to prevent constipation from iron treatment. 1 BMs yesterday. Senokot onboard. Endo: DM2 -SSI, glucose checks q4h -Lantus 37 U -Lantus Code: Full IVF: D5 @ 75 ml/h VTE: therapeutic lovenox GI ppx: Pepcid Lines/Tubes: PICC line, trach, suprapubic catheter, NG tube Diet: Tube Feeds Vent setting: SIMV 18, TV 500, PS/PEEP 10/12, FIO2 50 Drips: Propofol Dispo: Will replace potassium and adjust insulin. Will monitor respiratory status. Addendum - Attending - Attending Attestation Date/Time: 08/30/20 1106 I personally evaluated the patient and discussed the management with Dr. Fleming. I agree with the History, Examination, Assessment and Plan documented above with any addition or exceptions noted below. Patient overall stable. Continue Vent mgmt per Pulm. Guarded to poor prognosis. Replete potassium.
[2020-08-30 07:24] LABS: Actual Bicarbonate (HCO3a) 28.1 mEq/L (22-28); Base Excess (BEa) 3.8 mEq/L (-2.0 to +3.0); CO2 Tension 41.2 mmHg (35.0-45.0); Calcium, Ionized (arterial) 1.19 mmol/L (1.12-1.30); Carboxyhemoglobin (COHb) 0.6 gm% (0.0-3.0); Hemoglobin (Hb) 9.5 g/dL (14.0-18.0); Potassium - ABG Lab 2.95 mmol/L (3.70-5.30); pH, Arterial 7.45 (7.35-7.45)
[2020-08-30 07:27] LABS: O2 Tension (PaO2), arterial 57.7 mmHg (80.0-100.0); Puncture Site RRA
--- NOTE | 2020-08-30 07:56 | PRG ---
DATE OF SERVICE: 08/30/2020 35 minutes critical care time. SUBJECTIVE: The patient remains on mechanical ventilation through his tracheostomy tube. There have been no acute changes overnight. OBJECTIVE: VITAL SIGNS: His temperature 98.1, pulse 77, blood pressure 157/102, O2 saturation 100%. Intake last 24 hours 1558, output 2695. HEENT: Unremarkable. NECK: Trach in good position. LUNGS: Coarse breath sounds. CARDIOVASCULAR: S1, S2. Regular. ABDOMEN: Soft. EXTREMITIES: Trace edema. LABORATORY DATA: White blood cell count 8.6, hematocrit 25.5, and platelet count 280. D-dimer 7.45. INR 1.1. PH of 7.45, pCO2 of 41, PO2 of 57. AA gradient 247. He is on SIMV rate 18, tidal volume 500, PEEP 12, pressure support 10, FiO2 of 50%. Sodium 142, potassium 3, chloride 103, CO2 of 28, BUN 45, creatinine 1.2, glucose 196. C-reactive protein 14.6. Chest x-ray without significant change. ASSESSMENT: 1. COVID-19 pneumonia. 2. Acute respiratory failure requiring mechanical ventilation. 3. Quadriplegia. 4. Azotemia. 5. Hypokalemia. 6. Corrected hypernatremia. PLAN: Continue the hydrocortisone, enoxaparin. He is not weanable from mechanical ventilation at this time. I think we can stop the daily C-reactive protein and D-dimer as they are not changing our management. Job ID: [id number]
--- NOTE | 2020-08-30 08:33 | RAD ---
PORTABLE CHEST: HISTORY: Pneumonia with CCU followup. COMPARISON: 08/29/2020. FINDINGS: Bilateral infiltrates throughout both lung amaro are again noted. Elevated right hemidiaphragm. Th e tracheostomy device and NG tube are unchanged. IMPRESSION: No significant change from yesterday. POS: AGW
[2020-08-30] MEDS: Propofol 1,000 MG/100 ML VIAL IV PRN ×3 (09:17→22:06)
[2020-08-30] MEDS: Scopolamine 1.5 mg/72 hour Patch TD SCH (09:18)
[2020-08-30] MEDS: Famotidine/PF 20 mg/2ml Vial SLOW IVP SCH ×2 (09:19→22:08)
[2020-08-30] MEDS: Polyethylene Glycol 3350 17 GM Packet PER TUBE SCH (09:19)
[2020-08-30] MEDS: Senokot S 8.6-50 MG TAB PER TUBE SCH ×2 (09:19→22:07)
[2020-08-30] MEDS: Atenolol 50 MG TAB PER TUBE SCH (09:19)
[2020-08-30] MEDS: Magnesium Oxide 400 MG TAB PO SCH ×2 (09:20→16:57)
[2020-08-30] MEDS: Saccharomyces boulardii 250 MG CAP PER TUBE SCH (09:20)
[2020-08-30] MEDS: Multivit, Therapeutic 1 TAB PER TUBE SCH (09:20)
[2020-08-30] MEDS: Gabapentin 300 MG CAP PO SCH ×4 (09:20→22:07)
[2020-08-30] MEDS: Amlodipine 10 MG TAB PER TUBE SCH (09:20)
[2020-08-30] MEDS: Aspirin Chewable 81 MG TAB PER TUBE SCH (09:20)
[2020-08-30] MEDS: tiZANidine HCl 4 MG TAB PER TUBE SCH ×4 (09:21→22:07)
[2020-08-30] MEDS: Enoxaparin Sodium 100 MG/ML SYRINGE SC SCH (09:21)
[2020-08-30] MEDS: Docusate Sodium 100 MG/10 ML UDCUP PER TUBE SCH ×2 (09:23→22:08)
[2020-08-30] MEDS: Dextrose 5% in Water 1,000 ML IV SCH ×2 (09:26→23:32)
[2020-08-30] MEDS ORDERED: Insulin Glargine 37 UNITS in Pre-Filled Syringe 1 EACH SC SCH (21:00)
[2020-08-30] MEDS: Amitriptyline HCl 25 MG TAB PER TUBE SCH (22:06)
[2020-08-30] MEDS: Lisinopril 10 MG TAB PER TUBE SCH (22:07)
[2020-08-30] MEDS: Atorvastatin Calcium 40 MG TAB PO SCH (22:07)
[2020-08-31 06:30] LABS: #Eosinphils 0.2 thou/uL (0.0-0.7); #Lymphocytes 0.4 thou/uL (1.20-3.40); #Monocytes 0.2 thou/uL (0.11-0.59); %Eosinophils 1.6 % (0.0-10.0); %Lymphocytes 4.4 % (21.0-51.0); %Monocytes 2.2 % (0.0-10.0); %Neutrophils 91.8 % (42.0-75.0); Hemoglobin 8.3 g/dL (14.0-18.0); Mean Corpuscular HGB CONC 31.1 g/dL (32.0-36.0); Mean Corpuscular Hemoglobin 25.2 pg (27.0-31.0); Mean Corpuscular Volume 81.2 fL (78.0-98.0); Mean Platelet Volume 9.8 fL (7.4-10.4); Platelet Count 280 thou/uL (130-400); RBC Distribution Width 15.5 % (11.5-14.5); Red Blood Cell (RBC) Count 3.31 mill/uL (4.70-6.10); White Blood Cell (WBC) Count 9.8 thou/uL (4.8-10.8)
--- NOTE | 2020-08-31 06:55 | PDOC.FM ---
- Subjective Subjective: Intubated & sedated. - Objective Vital Signs & Weight: Vital Signs (12 hours) Temp Pulse Resp BP Pulse Ox 08/31/20 00:23 76 18 100 08/31/20 00:00 98.4 F 18 08/30/20 22:12 81 20 100 08/30/20 22:07 149/105 H 08/30/20 22:00 19 08/30/20 20:00 98.5 F 18 100 08/30/20 19:02 85 24 H 100 Weight Admit Weight 108.409 kg Weight 106.8 kg Most Recent Monitor Data Heart Rate from ECG 84 NIBP 172/105 NIBP BP-Mean 127 Respiration from ECG 23 SpO2 99 I&O: 08/29/20 08/30/20 08/31/20 06:59 06:59 06:59 Intake Total 2654 1558 2032 Output Total 3435 2695 1870 Balance -781 -5767 162 Result Diagrams: 08/31/20 03:10 08/31/20 03:10 Radiology Reviewed by me: Yes (No interval change) Phys Exam - Physical Examination Sedated HEENT: moist MMs Intubated Trach present Respiratory: no wheezing, no rales, no rhonchi, clear to auscultation bilateral Cardiovascular: RRR, no significant murmur Gastrointestinal: soft, non-tender, positive bowel sounds Musculoskeletal: no edema, pulses present Unable to assess due to sedation Lymphatic: no nodes Skin: no rash, normal turgor Dx/Plan (1) COVID-19 Code(s): U07.1 - COVID-19 Status: Acute (2) Acute hypoxemic respiratory failure due to COVID-19 Code(s): U07.1 - COVID-19; J96.01 - ACUTE RESPIRATORY FAILURE WITH HYPOXIA Status: Acute (3) Acute kidney injury Code(s): N17.9 - ACUTE KIDNEY FAILURE, UNSPECIFIED Status: Acute (4) Sepsis with acute organ dysfunction Code(s): A41.9 - SEPSIS, UNSPECIFIED ORGANISM; R65.20 - SEVERE SEPSIS WITHOUT SEPTIC SHOCK Status: Acute (5) DM type 2 (diabetes mellitus, type 2) Status: Chronic Qualifiers: Diabetes mellitus alf insulin use: with superintendent container terminal use (6) Hypertension Code(s): I10 - ESSENTIAL (PRIMARY) HYPERTENSION Status: Chronic (7) Neurogenic bladder Code(s): N31.9 - NEUROMUSCULAR DYSFUNCTION OF BLADDER, UNSPECIFIED Status: Chronic - Plan Plan: Mr. Stinson is a 50 year old AAM with quadriplegia with Neurogenic Bladder, CHF, and Iron Deficiency Anemia who has Acute Hypoxic Respiratory Distress 2/2 COVID PNA. Neuro: GCS: unable to assess due to sedation. Encephalopathy, resolved -Wean propofol as able. Neurogenic bladder: has suprapubic cath Resp: Sepsis 2/2 PNA Bacterial PNA, COVID initially thought to be an incidental finding, will trend inflammatory markers Acute on chronic hypoxic respiratory failure -Pulm consulted, appreciate recs. -Sputum culture with no growth; low utility as has been on abx for some time now. -Has trach -Currently on steroids, dose reduced to 50 mg 08/31 -Convalescent Plasma given -ISARIC Score: 10/14, 26.9% in hospital mortality CV: Hx of diastolic CHF -Two Echos from 07/2020 confirm this diagnosis along with LVH Hx of HTN -Blood pressures control with increase of Lisinopril Renal/: BRIAN vs BRIAN on CKD, improving Presumptive pseudomonas UTI in setting of suprapubic cath Neurogenic bladder -Urine culture showing presumptive pseudomonas >100K cfu. Cefepime shows intermediate resistance. Unsure how much UTI contributed to his symptoms. Heme/ID: Covid PNA as above -Convalescent plasma -Continue monitoring COVID inflammatory markers Hx of MRSA bacteremia Hx of Iron deficiency anemia - iron PO once daily - Colace SHA to prevent constipation from iron treatment. 1 BMs yesterday. Senokot onboard. Endo: DM2 -SSI, glucose checks q4h -Lantus 40 U QHS Code: Full IVF: D5 @ 75 ml/h VTE: therapeutic lovenox GI ppx: Pepcid Lines/Tubes: PICC line, trach, suprapubic catheter, NG tube Diet: Tube Feeds Vent setting: SIMV 18, TV 500, PS/PEEP 10/12, FIO2 40 Drips: Propofol Dispo: Will continue to monitor respiratory status along with pulm. Addendum - Attending - Attending Attestation Date/Time: 08/31/20 4594 I personally evaluated the patient and discussed the management with Dr. Sourav Fleming. I agree with the History, Examination, Assessment and Plan documented above with any addition or exceptions noted below.
[2020-08-31] MEDS ORDERED: Insulin Glargine 40 UNITS in Pre-Filled Syringe 1 EACH SC SCH (07:18)
[2020-08-31 07:49] LABS: Actual Bicarbonate (HCO3a) 28.8 mEq/L (22-28); Base Excess (BEa) 4.5 mEq/L (-2.0 to +3.0); CO2 Tension 41.8 mmHg (35.0-45.0); Calcium, Ionized (arterial) 1.21 mmol/L (1.12-1.30); Carboxyhemoglobin (COHb) 0.2 gm% (0.0-3.0); Hemoglobin (Hb) 9.9 g/dL (14.0-18.0); Potassium - ABG Lab 3.51 mmol/L (3.70-5.30); pH, Arterial 7.46 (7.35-7.45)
[2020-08-31 07:53] LABS: O2 Tension (PaO2), arterial 52.6 mmHg (80.0-100.0); Puncture Site RRA
--- NOTE | 2020-08-31 07:54 | RAD ---
CHEST 1 VIEW: INDICATION: History of pneumonia. COMPARISON: Prior exam dated 04/30/2020. FINDINGS/IMPRESSION: Left-sided PICC line, gastric catheter, and tracheostomy tube are unchanged. Bilateral airspace dise ase and mild cardiomegaly are stable. No pneumothorax is evident. POS: [facility]
[2020-08-31] MEDS: Hydrocortisone Sod Succ/PF 100 mg/2 ml Vial IVP SCH ×3 (08:20→18:11)
[2020-08-31] MEDS: Baclofen 10 MG TAB PER TUBE SCH ×3 (08:20→18:11)
--- NOTE | 2020-08-31 08:47 | PRG ---
DATE OF SERVICE: 08/31/2020 35 minutes critical care time. SUBJECTIVE: The patient remains on mechanical ventilation through his tracheostomy. He is little more awake than he has been. OBJECTIVE: VITAL SIGNS: His temperature is 98.4, pulse 92, blood pressure 162/101, O2 saturation 96% on 50% oxygen. Total intake for the last 24 hours was 2965, output 2530. HEENT: Unremarkable. NECK: Trach in good position. LUNGS: Fairly clear anteriorly. CARDIOVASCULAR: S1 and S2. Regular. ABDOMEN: Soft and nontender. EXTREMITIES: No clubbing, cyanosis, or edema. LABORATORY DATA: ABG; pH 7.41, pCO2 of 41, PO2 of 52, on SIMV rate 18, tidal volume 500, PEEP 12, pressure support 10, FiO2 of 50%. White blood cell count 9.8, hematocrit 26.8, and platelet count 280. Chemistry for some reason has not been done today. ASSESSMENT: 1. COVID-19 pneumonia. 2. Acute on chronic respiratory failure requiring mechanical ventilation. 3. Quadriplegia. 4. Azotemia. 5. Hypokalemia. 6. Hypernatremia, which had been corrected as of yesterday, but today's labs are pending. PLAN: 1. Monitor from today. 2. Try to decrease FiO2 on mechanical ventilation. 3. Continue hydrocortisone, but reduce the dose. 4. Continue anticoagulation. Job ID: [id number]
[2020-08-31] MEDS: Enoxaparin Sodium 100 MG/ML SYRINGE SC SCH (09:08)
[2020-08-31] MEDS: Propofol 1,000 MG/100 ML VIAL IV PRN (09:08)
[2020-08-31] MEDS: Atenolol 50 MG TAB PER TUBE SCH (09:09)
[2020-08-31] MEDS: Amlodipine 10 MG TAB PER TUBE SCH (09:09)
[2020-08-31] MEDS: tiZANidine HCl 4 MG TAB PER TUBE SCH ×4 (09:09→20:04)
[2020-08-31] MEDS: Magnesium Oxide 400 MG TAB PO SCH ×2 (09:09→18:12)
[2020-08-31] MEDS: Aspirin Chewable 81 MG TAB PER TUBE SCH (09:09)
[2020-08-31] MEDS: Saccharomyces boulardii 250 MG CAP PER TUBE SCH (09:10)
[2020-08-31] MEDS: Famotidine/PF 20 mg/2ml Vial SLOW IVP SCH ×2 (09:11→20:05)
[2020-08-31] MEDS: Multivit, Therapeutic 1 TAB PER TUBE SCH (09:11)
[2020-08-31 09:14] VITALS: BP 173/99
[2020-08-31 09:43] LABS: Anion Gap 14 mmol/L (10-20); BUN (Urea Nitrogen) 39 mg/dL (8.9-20.6); Calc. Creatinine Clearance 108 mL/min (70-130); Carbon Dioxide 27 mmol/L (22-29); Chloride 104 mmol/L (98-107); Estimated GFR-MDRD 61; Glucose 238 mg/dL (70-105); Sodium 141 mmol/L (136-145)
[2020-08-31 10:06] VITALS: BMI 31.0
[2020-08-31] MEDS: HumaLOG 300 UNITS/3 ML VIAL SC PRN ×2 (10:14→16:49)
[2020-08-31] MEDS: Polyethylene Glycol 3350 17 GM Packet PER TUBE SCH (11:50)
[2020-08-31] MEDS: Docusate Sodium 100 MG/10 ML UDCUP PER TUBE SCH ×2 (11:50→20:04)
[2020-08-31] MEDS: Senokot S 8.6-50 MG TAB PER TUBE SCH ×2 (11:51→20:06)
[2020-08-31] MEDS: Gabapentin 300 MG CAP PO SCH ×3 (12:38→20:04)
[2020-08-31] MEDS: Dextrose 5% in Water 1,000 ML IV SCH (18:11)
[2020-08-31 19:50] LABS: Actual Bicarbonate (HCO3a) 30.8 mEq/L (22-28); Base Excess (BEa) 6.1 mEq/L (-2.0 to +3.0); CO2 Tension 45.4 mmHg (35.0-45.0); Carboxyhemoglobin (COHb) 0.4 gm% (0.0-3.0); Hemoglobin (Hb) 9.9 g/dL (14.0-18.0); pH, Arterial 7.45 (7.35-7.45)
[2020-08-31] MEDS: Atorvastatin Calcium 40 MG TAB PO SCH (20:04)
[2020-08-31] MEDS: Lisinopril 10 MG TAB PER TUBE SCH (20:04)
[2020-08-31] MEDS: Amitriptyline HCl 25 MG TAB PER TUBE SCH (20:04)
[2020-08-31 20:15] LABS: O2 Tension (PaO2), arterial 37.7 mmHg (80.0-100.0); Puncture Site RRA
[2020-09-01] MEDS: Hydrocortisone Sod Succ/PF 100 mg/2 ml Vial IVP SCH ×3 (00:12→11:08)
[2020-09-01] MEDS: Baclofen 10 MG TAB PER TUBE SCH ×2 (01:26→05:52)
[2020-09-01] MEDS: Propofol 1,000 MG/100 ML VIAL IV PRN ×2 (01:30→06:34)
[2020-09-01] MEDS: Dextrose 5% in Water 1,000 ML IV SCH (03:33)
[2020-09-01 04:25] LABS: Anion Gap 12 mmol/L (10-20); BUN (Urea Nitrogen) 37 mg/dL (8.9-20.6); Calc. Creatinine Clearance 100 mL/min (70-130); Calcium 8.7 mg/dL (7.8-10.44); Carbon Dioxide 31 mmol/L (22-29); Chloride 100 mmol/L (98-107); Estimated GFR-MDRD 56; Glucose 103 mg/dL (70-105); Potassium 3.3 mmol/L (3.5-5.1); Sodium 140 mmol/L (136-145)
[2020-09-01 05:15] LABS: Band 9 % (5-11); Hemoglobin 7.6 g/dL (14.0-18.0); MDiff Complete? YES; Mean Corpuscular HGB CONC 32.2 g/dL (32.0-36.0); Mean Corpuscular Hemoglobin 25.6 pg (27.0-31.0); Mean Corpuscular Volume 79.7 fL (78.0-98.0); Mean Platelet Volume 9.8 fL (7.4-10.4); Monocytes 8 % (0-10); Neutrophil 83 % (42-75); Platelet Count 288 thou/uL (130-400); RBC Distribution Width 15.3 % (11.5-14.5); Red Blood Cell (RBC) Count 2.96 mill/uL (4.70-6.10); White Blood Cell (WBC) Count 22.9 thou/uL (4.8-10.8)
--- NOTE | 2020-09-01 05:47 | PDOC.FM ---
- Subjective Subjective: Pt went downhill overnight after usual trach care. Dr. Chavez was called and the FIO2 on the vent was increased from 40 to 70 after assessment of the ABG. He developed fever, was tachycardiac, and was breathing over the vent and became more tachypneic. - Objective MAR Reviewed: Yes Vital Signs & Weight: Vital Signs (12 hours) Pulse Resp BP Pulse Ox 09/01/20 05:33 24 H 09/01/20 04:00 24 H 09/01/20 02:51 93 24 H 100 09/01/20 02:00 24 H 09/01/20 00:00 24 H 08/31/20 22:42 113 H 24 H 08/31/20 22:00 24 H 08/31/20 20:04 173/99 H 08/31/20 20:00 25 H 98 08/31/20 19:23 96 26 H 08/31/20 18:00 22 H Weight Admit Weight 108.409 kg Weight 107 kg Most Recent Monitor Data Heart Rate from ECG 99 NIBP 124/78 NIBP BP-Mean 93 Respiration from ECG 28 SpO2 100 I&O: 08/30/20 08/31/20 09/01/20 06:59 06:59 06:59 Intake Total 1558 2965.8 1748 Output Total 2695 2530 2345 Balance -1137 435.8 -597 Result Diagrams: 09/01/20 03:30 09/01/20 03:30 Radiology Reviewed by me: Yes (Chest xray showed a left lower lobe infiltrate that has developed) Phys Exam - Physical Examination Pt is moving around quite a bit and appears uncomfortable HEENT: moist MMs, sclera anicteric Trachea in place decreased breathe sounds Cardiovascular: RRR, no significant murmur Gastrointestinal: soft, non-tender, positive bowel sounds Musculoskeletal: no edema, pulses present Pt is a quadraplegic Lymphatic: no nodes Deviation from normal: decubitus ulcer Dx/Plan (1) COVID-19 Code(s): U07.1 - COVID-19 Status: Acute (2) Acute hypoxemic respiratory failure due to COVID-19 Code(s): U07.1 - COVID-19; J96.01 - ACUTE RESPIRATORY FAILURE WITH HYPOXIA Status: Acute (3) Acute kidney injury Code(s): N17.9 - ACUTE KIDNEY FAILURE, UNSPECIFIED Status: Acute (4) Sepsis with acute organ dysfunction Code(s): A41.9 - SEPSIS, UNSPECIFIED ORGANISM; R65.20 - SEVERE SEPSIS WITHOUT SEPTIC SHOCK Status: Acute (5) DM type 2 (diabetes mellitus, type 2) Status: Chronic Qualifiers: Diabetes mellitus termite exterminator insulin use: with termite exterminator use (6) Hypertension Code(s): I10 - ESSENTIAL (PRIMARY) HYPERTENSION Status: Chronic (7) Neurogenic bladder Code(s): N31.9 - NEUROMUSCULAR DYSFUNCTION OF BLADDER, UNSPECIFIED Status: Chronic - Plan Plan: Mr. Stinson is a 50 year old AAM with quadriplegia with Neurogenic Bladder, CHF, and Iron Deficiency Anemia who has Acute Hypoxic Respiratory Distress 2/2 COVID PNA. 1. Sepsis 2/2 Bacterial PNA, COVID initially thought to be an incidental finding -Pulm consulted, appreciate recs -Convalescent plasma -Started Meropenem and Vanc -Repeated Blood Cx this morning -ISARIC Score: 10/14, 26.9% in hospital mortality 2. Acute on chronic hypoxic respiratory failure -Previous sputum culture with no growth. -Has trach -Currently on steroids, dose reduced to 50 mg 08/31 3. Encephalopathy, resolved -Currently sedated and on paralytic 4. Neurogenic bladder -Suprapubic cath -UA & Urine Cx obtained -Previous urine culture showing presumptive pseudomonas >100K cfu. Cefepime shows intermediate resistance. Unsure how much UTI contributed to his symptoms. 4. Hx of diastolic CHF -Two Echos from 07/2020 confirm this diagnosis along with LVH 5. Hx of HTN -Blood pressures control with increase of Lisinopril 6. BRIAN vs BRIAN on CKD, improving Cre: 1.35 7. Hx of MRSA bacteremia 8. Hx of Iron deficiency anemia - iron PO once daily - Colace SHA to prevent constipation from iron treatment. 1 BMs yesterday. Senokot onboard. 9. DM2 -SSI, glucose checks q4h -Lantus 40 U QHS. Will decrease to 35 and stop D5. Code: Full IVF: SL VTE: therapeutic lovenox GI ppx: Pepcid Lines/Tubes: PICC line, trach, suprapubic catheter, NG tube Diet: Tube Feeds- 1.5 Glucerna with ProStat 4 times/day Vent setting: SIMV 18, TV 500, PS/PEEP 10/15, FIO2 70 ips: Propofol Dispo: Started Abx today. Vent adjusted this morning. We will d/c D5 and decrease insulin. Addendum - Attending - Attending Attestation Date/Time: 09/01/20 0900 I personally evaluated the patient and discussed the management with Dr. Fleming. I agree with the History, Examination, Assessment and Plan documented above with any addition or exceptions noted below.
[2020-09-01] MEDS ORDERED: Ventilator Sedation Protocol 1 EACH FS ONE (07:39)
[2020-09-01] MEDS ORDERED: Lorazepam 2 MG/ML VIAL SLOW IVP PRN (08:00)
[2020-09-01] MEDS ORDERED: Fentanyl BOLUS 250 ML IVPB PRN (08:00)
[2020-09-01] MEDS ORDERED: DISCONTINUE PREVIOUS NARCOTIC PAIN MEDICATIONS AND BENZODIAZEPINES FS SCH (08:00)
[2020-09-01] MEDS ORDERED: MEROPENEM 1 GM/50 ML 1 GM in Premix Bag 1 BAG IVPB SCH (08:00)
[2020-09-01] MEDS ORDERED: Propofol BOLUS 1,000 MG/100 ML VIAL IV PRN (08:00)
[2020-09-01] MEDS ORDERED: Propofol 1,000 MG/100 ML VIAL IV PRN (08:00)
[2020-09-01] MEDS ORDERED: Morphine 2 MG/ML VIAL SLOW IVP PRN (08:00)
[2020-09-01] MEDS ORDERED: fentaNYL Citrate/PF 2,000 MCG in Sodium Chloride 0.9% 60 ML IV SCH (08:00)
[2020-09-01 08:05] LABS: Bilirubin Negative (Negative); Blood, Urine 1+ (Negative); Clarity Extra Turbid (Clear); Glucose, Urine (Dipstick) 30 mg/dL (Negative); Ketone, Urine Negative (Negative); Leukocyte 75 Leu/uL (Negative); Nitrite Negative (Negative); Protein, Urine (Dipstick) 600 mg/dL (Neg-Trace); Specific Gravity, Urine 1.028 (1.002-1.036); Urobilinogen Normal mg/dL (Less than 2)
[2020-09-01] MEDS ORDERED: Insulin Glargine 35 UNITS in Pre-Filled Syringe 1 EACH SC SCH (08:09)
[2020-09-01 08:12] LABS: Bacteria/HPF None Seen HPF (None Seen); Other Microscopic Description Less than 2 mL rec'd; RBC/HPF 0-3 HPF (0-3)
[2020-09-01 08:13] LABS: Squamous Epithelial 0-3 HPF (0-3); WBC/HPF 0-3 HPF (0-3)
[2020-09-01] MEDS ORDERED: Norepinephrine 8 MG/0.9% NS 250 ML ONE (08:37)
[2020-09-01] MEDS: Enoxaparin Sodium 100 MG/ML SYRINGE SC SCH (08:39)
[2020-09-01] MEDS: Multivit, Therapeutic 1 TAB PER TUBE SCH (08:40)
[2020-09-01] MEDS: tiZANidine HCl 4 MG TAB PER TUBE SCH (08:40)
[2020-09-01] MEDS: Gabapentin 300 MG CAP PO SCH (08:40)
[2020-09-01] MEDS: Magnesium Oxide 400 MG TAB PO SCH (08:41)
[2020-09-01] MEDS: Famotidine/PF 20 mg/2ml Vial SLOW IVP SCH (08:41)
[2020-09-01] MEDS: Saccharomyces boulardii 250 MG CAP PER TUBE SCH (08:41)
[2020-09-01] MEDS: Aspirin Chewable 81 MG TAB PER TUBE SCH (08:41)
[2020-09-01] MEDS: Potassium Chloride 20 MEQ in Premix Bag 1 BAG IVPB SCH ×2 (08:46→08:47)
[2020-09-01 08:51] LABS: Actual Bicarbonate (HCO3a) 27.9 mEq/L (22-28); Base Excess (BEa) 4.7 mEq/L (-2.0 to +3.0); CO2 Tension 34.7 mmHg (35.0-45.0); Calcium, Ionized (arterial) 1.14 mmol/L (1.12-1.30); Carboxyhemoglobin (COHb) 0.4 gm% (0.0-3.0); Hemoglobin (Hb) 6.9 g/dL (14.0-18.0); O2 Tension (PaO2), arterial 80.8 mmHg (80.0-100.0); Potassium - ABG Lab 3.82 mmol/L (3.70-5.30); pH, Arterial 7.52 (7.35-7.45)
[2020-09-01 08:59] LABS: ALV-art Gradient 374.925 mmHg (0-20); Puncture Site RRA
[2020-09-01] MEDS ORDERED: Vancomycin 1.5 GRAM/300 ML BAG 1.5 GM in Premix Bag 1 BAG IVPB SCH (09:00)
--- NOTE | 2020-09-01 09:00 | PRG ---
DATE OF SERVICE: 09/01/2020 Forty five minutes critical care time. SUBJECTIVE: The patient remains intubated, on mechanical ventilation. He had a terrible night in terms of hypoxemia last night. Had to be placed on a higher amount of PEEP. OBJECTIVE: VITAL SIGNS: His temperature is 101.3 with a T-max of 101.5, pulse 103, blood pressure 129/82. His 24-hour intake was 2941, output 2318. HEENT: Unremarkable. HEENT: Unchanged. NECK: Trach in good position. LUNGS: Coarse breath sounds. CARDIOVASCULAR: S1, S2. Slightly tachycardic. ABDOMEN: Soft, nontender. EXTREMITIES: Edematous. LABORATORY DATA: White blood cell count 22.9, up from 9.8, hematocrit 23.5, platelet count 288. ABG pending. Sodium 140, potassium 3.3, chloride 100, CO2 of 31, BUN 37, creatinine 1.3, glucose 103. DIAGNOSTIC DATA: X-ray shows diffuse bilateral infiltrates, which have worsened. ASSESSMENT: 1. Coronavirus disease 19 pneumonia. 2. Previous tracheostomy. 3. Acute respiratory failure, requiring mechanical ventilation with worsening oxygenation overnight. 4. History of quadriplegia. 5. Hypokalemia. PLAN: 1. I have switched him over to bilevel ventilation with improvement in his O2 sat. 2. Because of the fever, we are going to re-culture him and empirically start him on meropenem and vancomycin. 3. He continues on anticoagulation with the dose adjusted for his poor renal function. 4. His potassium was replaced this morning. 5. His sodium has come down to 140, so I think we can safely stop the D5W. 6. Continue hydrocortisone. 7. Prognosis for recovery is extremely poor. Job ID: [id number]
[2020-09-01] MEDS ORDERED: Norepinephrine 8 MG/0.9% NS 250 ML IVPB SCH (09:30)
--- NOTE | 2020-09-01 09:46 | RAD ---
PORTABLE CHEST: HISTORY: Pneumonia followup. COMPARISON: Prior day's exam. FINDINGS: The extensive interstitial alveolar lung changes are still present. There is more of a consolidative appearance to some of the changes in the left lung increasing obscuration to the left heart border. Tracheostomy tube and NG tubes are in satisfactory position. Left-sided PICC line unchanged in posi tion. IMPRESSION: Worsening left-sided infiltrative lung change. POS: [facility]
[2020-09-01] MEDS: Atenolol 50 MG TAB PER TUBE SCH (10:52)
[2020-09-01] MEDS: Amlodipine 10 MG TAB PER TUBE SCH (10:52)
[2020-09-01] MEDS: Docusate Sodium 100 MG/10 ML UDCUP PER TUBE SCH (10:53)
[2020-09-01] MEDS: Polyethylene Glycol 3350 17 GM Packet PER TUBE SCH (10:53)
[2020-09-01] MEDS: Senokot S 8.6-50 MG TAB PER TUBE SCH (10:54)
[2020-09-01 11:07] VITALS: TEMP 99.7
--- NOTE | 2020-09-01 12:20 | PDOC.EVN ---
Event Note - Event Note Event Note: At approximately 1147, a Code Blue was called over the hospital [employer] system. Per report, the patient's nurse noticed that the patient's pulse began to become bradycardic into the 40s and as low as the 30s. The patient also became hypotensive, with SBPs in the 70s and 60s. The Resident Medicine Team and the ER Attending Physician Attended the Code. Baseline labs were ordered and Epinepherine was given x2. Pulse was lost intermittently and chest compressions were initiated for < 1 minute. The patient's HR return to an acceptable level and pulse was confirmed by Nursing Staff. As the patient was no longer bradycardic, the Code was terminated. After several minutes, the patient became bradycardic again, and chest compressions were resumed. However, during the second round of compressions, the patient's was contacted via phone, at which time she expressed a desire to remove the patient's Full Code status and "let him pass peacefully." As such, all compressions were ceased. The patient was monitored for several minutes afterward, at which time his HR remained in th e 40s and his BPs ranged as low as 56/42. Patient's overall prognosis at this time is extremely poor. Addendum - Attending - Attending Attestation Date/Time: 09/01/20 9201 I personally evaluated the patient and discussed the management with Dr. Benoit. I agree with the History, Examination, Assessment and Plan documented above with any addition or exceptions noted below. Patient had CODE BLUE a little earlier this afternoon. He had worsening bradycardia and hypotension. Resolved with Epi x1 and a few moments of chest compressions. He never lost pulse at that time. A few minutes later, continued bradycardia and hypotension. I spoke on the phone with patient's , who indicated that patient had a very difficult last few years, and she was aware that he was sick and that his body was shutting down. She then acknowledged that she knew her had wanted to remain a FULL CODE, but that she knew he was getting more ill by the day, and that she "was putting my foot down" and would like to allow him to pass naturally. I confirmed at that time that she in fact would like us to refrain from further resuscitation efforts and allow him to , and she stated "yes". Information was passed along to nursing at that time, who had resumed chest compressions for about 45 seconds, along with Epi x1 again. CPR was ceased at that time.
[2020-09-01] MEDS ORDERED: Vancomycin HCl 1.25 GM in Sodium Chloride 0.9% 250 ML 250 ML IVPB SCH (21:00)
--- NOTE | 2020-09-04 15:06 | DIS ---
DATE OF ADMISSION: 08/21/2020 DATE OF DISCHARGE: 09/01/2020 This is a summary. RESIDENT: Jovanny Fleming MD DATE OF : 09/01/2020. TIME OF : 12:08 p.m. CAUSE OF : 1. Acute hypoxic respiratory failure secondary to COVID. 2. Chronic respiratory failure secondary to quadriplegia. 3. Sepsis secondary to bacterial pneumonia. SECONDARY DIAGNOSES: 1. Acute on chronic hypoxic respiratory failure. 2. Encephalopathy. 3. Neurogenic bladder. 4. History of diastolic heart failure. 5. History of hypertension. 6. Acute kidney injury on chronic kidney disease. 7. History of MRSA bacteremia. 8. History of iron deficiency anemia. 9. Diabetes type 2. HOSPITAL COURSE: The patient presented on the 21 of August due to altered mental status. He had a history of quadriplegia and presented from the long term. At the long term, he was found to have oxygen sat in the 80s lethargic and difficult to arouse. He was hospitalized from 07/31 to 08/09 for similar presentation, diagnosed with MRSA bacteremia. He was on treatment via PICC line for the bacteremia, was getting vancomycin. He was transferred to the hospital from [place] [facility] due to the need for ICU care. His chest x-ray showed worsening multifocal pneumonia. He was started on vancomycin and cefepime, met sepsis criteria initially due to temperature and heart rate with pneumonia. During his hospital course, he was intubated. On the day of , he re-fevered, had a white count, was tachypneic and tachycardic. He was re-cultured at that time. The was called when he went into cardiac arrest the first time and they had revived him before they had gotten hold of her, but the patient coded again and attending was on the phone, he discussed this with the and the decided to make the patient DNR. The code was called at 12:08 p.m. PHYSICAL EXAMINATION: HEENT: Pupils fixed and dilated. CARDIAC: No pulse, no auscultated heart sounds. RESPIRATORY: No spontaneous respirations. NEURO: No withdrawal to painful stimuli. was confirmed by Dr. Reilly Mejia. The family did not request an autopsy. ORDERS: 1. Time of , 09/01/2020 at 12:08 p.m. 2. Okay to remove all lines. 3. Okay to release to sales property manager for autopsy. Job ID: [id number] [facility]
== END 2020-09-01 12:22 | disposition expired | DRG 870 ==
LOC: CCU 01:34
PROVIDERS: ADMIT Family Medicine; ATTEND Family Medicine
PROC: 5A1955Z Respiratory Ventilation, Greater than 96 Consecutive Hours (ICD-10-PCS; principal; 2020-08-21)
PROC: 8E0ZXY6 Isolation (ICD-10-PCS; 2020-08-21)
PROC: 0BJ08ZZ Inspection of Tracheobronchial Tree, Via Natural or Artificial Opening Endoscopic (ICD-10-PCS; 2020-08-21)
PROC: 0BH17EZ Insertion of Endotracheal Airway into Trachea, Via Natural or Artificial Opening (ICD-10-PCS; 2020-08-21)
PROC: 0T2BX0Z Change Drainage Device in Bladder, External Approach (ICD-10-PCS; 2020-08-24)
PROC: XW13325 Transfusion of Convalescent Plasma (Nonautologous) into Peripheral Vein, Percutaneous Approach, New Technology Group 5 (ICD-10-PCS; 2020-08-29)
PROC: 3E033XZ Introduction of Vasopressor into Peripheral Vein, Percutaneous Approach (ICD-10-PCS; 2020-09-01)
PROC: 5A12012 Performance of Cardiac Output, Single, Manual (ICD-10-PCS; 2020-09-01)
DX: A41.89 Other specified sepsis (principal); U07.1 COVID-19; J12.89 Other viral pneumonia; J96.21 Acute and chronic respiratory failure with hypoxia; G93.41 Metabolic encephalopathy; G82.50 Quadriplegia, unspecified; J15.9 Unspecified bacterial pneumonia; N17.9 Acute kidney failure, unspecified; J98.11 Atelectasis; I50.32 Chronic diastolic (congestive) heart failure; N39.0 Urinary tract infection, site not specified; E87.0 Hyperosmolality and hypernatremia; I13.0 Hypertensive heart and chronic kidney disease with heart failure and stage 1 through stage 4 chronic kidney disease, or unspecified chronic kidney disease; Z66 Do not resuscitate; N31.9 Neuromuscular dysfunction of bladder, unspecified; K21.9 Gastro-esophageal reflux disease without esophagitis; K59.00 Constipation, unspecified; B96.5 Pseudomonas (aeruginosa) (mallei) (pseudomallei) as the cause of diseases classified elsewhere; D50.9 Iron deficiency anemia, unspecified; R65.20 Severe sepsis without septic shock; E87.6 Hypokalemia; E87.5 Hyperkalemia; R00.1 Bradycardia, unspecified; Z86.14 Personal history of Methicillin resistant Staphylococcus aureus infection; Z79.899 Other long term (current) drug therapy; Z79.82 Long term (current) use of aspirin; Z79.4 Long term (current) use of insulin; Z93.0 Tracheostomy status; N18.9 Chronic kidney disease, unspecified; E11.22 Type 2 diabetes mellitus with diabetic chronic kidney disease
CPT/HCPCS: 31624; 36415; 36416; 36430; 71045; 80048; 80053; 80202; 81001; 82728; 82805; 84145; 84540; 85025; 85379; 85520; 85610; 85730; 86140; 86850; 86900; 86901; 87040; 87070; 87086; 87205; 89220; 92950; 94002; 94003; 94640; J0692; J1644; J1650; J1720; J1815; J1940; J2060; J2185; J2250; J2704; J2920; J3370; J3480; J3490; J7030; J7050; J7620; P9017; S0028